=== PATIENT | male | born 1945 | race Caucasian/White ===

== ENCOUNTER 2020-08-30 13:07 | Emergency (ER) | payer MEDICARE, SELFPAY ==
--- NOTE | ~2020-08-30 | CT_ITS ---
EXAMINATION: CT abdomen pelvis wo con CLINICAL INFORMATION: Reason for Exam Right-sided groin pain, history of kidney stones COMPARISON: Prior CT 2013 TECHNIQUE: Multidetector volumetric imaging was performed from the superior aspect of the liver through the pubic symphysis noncontrasted study Sagittal and coronal reformatted images were obtained on the technologist's workstation. This CT examination was performed using dose optimization techniques as appropriate, variously including the following: *Automated exposure control *Adjustment of mA and/or kV according to patient size (this includes techniques or standardized protocols for targeted exams where dose is matched to indication/reason for exam; i.e. extremities or head) *Use of iterative reconstruction technique DLP: 1186 mGy-cm FINDINGS: LOWER THORAX: There is a solid noncalcified nodule left lower lobe 6 mm in diameter. Refer image 9 series of 3. This has not changed since 2013 and presumably benign. HEPATOBILIARY: No focal hepatic lesions. No biliary ductal dilatation. GALLBLADDER: There are small layering gallstones. SPLEEN: Spleen is normal in size. PANCREAS: No focal mass or ductal dilatation. STOMACH AND GASTROINTESTINAL TRACT: Stomach is grossly unremarkable. There is a loop of colon C-shaped mildly dilated at mid abdomen raising concern for possible internal volvulus. Versus colonic ileus. Refer image [address] evidence of appendicitis. ADRENALS: No adrenal nodules. KIDNEYS/URETERS: Cyst lower pole right kidney measures 3 cm in diameter. Cyst lower pole left kidney measures 6.7 x 5.2 cm. Cyst middle pole right kidney 1.4 cm. There are tiny nonobstructing bilateral kidney stones on the right side measures 4 mm. On the left side measure 2 mm 3 mm and 2 mm. Cyst upper pole left kidney measures 2.6 cm. URINARY BLADDER: Partially decompressed. PELVIC VISCERA: Unremarkable PERITONEUM: No free air or fluid. LYMPH NODES: No lymphadenopathy. VASCULAR:There are heavy vascular calcifications. No aneurysm. BONES, ABDOMINAL WALL AND SOFT TISSUES: Small periumbilical hernia containing fat only measure about 1.9 cm. Right inguinal hernia containing fat only. The larger on the left measures 8.[address]/CT abdomen pelvis wo con IMPRESSION: 1. There is mildly dilated air-filled C-shaped loop of colon raising concern for possible internal volvulus versus colonic ileus. [place] image. No evidence of obstruction however. Pericholecystic remain clear. Clinical correlation recommended. If patient remain symptomatic consider correlation with follow-up CT scan with oral and IV contrast. 2. Cholelithiasis. 3. Bilateral renal cysts. A nonobstructing stones, No CT evidence of hydronephrosis.. 4. Heavy vascular calcification. 5. Subcentimeter Lung nodule left lower lobe 6 mm unchanged since 2013 presumably benign. 6. Bilateral inguinal hernias and a small periumbilical hernia containing fat.
[2020-08-30 14:38] VITALS: BP 110/52; BP 142/86; PULSE 65; PULSE 69; RESP 16; TEMP 36.4; O2SAT 94; O2SAT 95; BMI 39.1
[2020-08-30 15:15] LABS: MANUAL DIFF FLAG NO
[2020-08-30 15:17] LABS: Basophils Percent Auto 0.3 % (0-2); Eosinophils Absolute Auto 0.2 X10*3/uL (0.0-0.4); Eosinophils Percent Auto 1.7 % (0-4); Hematocrit 43.9 % (42-52); Hemoglobin 13.9 g/dl (14.0-18.0); Imm Gran Abs Auto 0.06 X10*3/uL (0.00-0.03); Imm Gran Pct Auto 0.7 % (0.0-0.4); Lymphocytes Absolute Auto 0.8 X10*3/uL (1.2-4.9); Lymphocytes Percent Auto 8.4 % (20-40); Mean Corpuscular HGB Conc 31.7 g/dl (31.0-36.0); Mean Corpuscular Hemoglobin 28.4 pg (27.0-33.0); Mean Corpuscular Volume 89.8 fL (80-98); Monocytes Absolute Auto 0.8 X10*3/uL (0.1-1.2); Monocytes Percent Auto 8.7 % (2-11); Neutrophils Absolute Auto 7.3 X10*3/uL (2.0-8.3); Neutrophils Percent Auto 80.2 % (45-73); Platelet Count 185 X10*3/uL (160-400); Red Blood Count 4.89 X10*6/uL (4.60-5.80); Red Cell Distribution Width 14.5 % (11.0-16.0); White Blood Count 9.2 X10*3/uL (4.8-10.8)
[2020-08-30 15:21] LABS: Glucose Urine UA NEG (NEG); Leukocyte Esterase Urine NEG (NEG); Nitrite Urine NEG (NEG); Specific Gravity - Urine 1.015 (1.005-1.025); Urine Blood NEG (NEG); Urine Ketones NEG (NEG); Urine Protein TRACE MG/DL (NEG-TRACE)
[2020-08-30 15:24] LABS: Appearance Urine CLEAR; Color Urine YELLOW
[2020-08-30 15:48] LABS: Anion Gap 15 (12-20); Blood Urea Nitrogen 52 mg/dL (9-16); Calcium 9.1 mg/dL (8.4-10.2); Carbon Dioxide 27 mmol/L (22-29); Chloride 99 mmol/L (96-108); Creatinine Clr Calc Pharmacy 50.5; Estimated Glomerular Filt Rate 35; Glucose Random 107 mg/dL (60-115); Potassium 4.9 mmol/L (3.3-5.1); Sodium 136 mmol/L (135-145)
--- NOTE | 2020-08-30 17:53 | ED.MALEGU ---
HPI - Male Genitourinary General Chief complaint: Urogenital-Male <ALY Barros - Last Filed: 08/31/20 01:51> Stated complaint: kidney stones <ALY Barros - Last Filed: 08/31/20 01:51> Time Seen by Provider: 08/30/20 17:44 <ALY Barros - Last Filed: 08/31/20 01:51> Source: patient, EMS and RN notes reviewed <ALY Barros - Last Filed: 08/31/20 01:51> Mode of arrival: ambulatory <AYL Barros - Last Filed: 08/31/20 01:51> Limitations: no limitations <ALY Barros - Last Filed: 08/31/20 01:51> History of Present Illness HPI Narrative: 75-year-old male here today for complaining of right-sided groin pain for 2 days. Patient reports to have urinary frequency as well as incontinence. Denies any fever, abdominal discomfort, blood in his urine. Patient reports that he has a history of kidney stones in the past. Patient has a history of diabetes and kidney disease. BUN 52, creatinine 1.87. Patient denies any fever or chills. <ALY Barros - Last Filed: 08/31/20 01:51> Related Data Home medications: Previous Rx's Medication Instructions Recorded polyethylene glycol 3350 [Miralax] 17 g PO DAILY #238 g 08/30/20 tamsulosin [Flomax] 0.4 mg PO BEDTIME #5 cap 08/30/20 <ALY Barros - Last Filed: 08/31/20 01:51> Allergies/Adverse reactions: Allergies Allergy/AdvReac Type Severity Reaction Status Date / Time No Known Allergies Allergy Verified 08/30/20 14:42 <ALY Barros - Last Filed: 08/31/20 01:51> Review of Systems Review of Systems: Constitutional : No Weight loss, No Fever, No Chills, No Night Sweats, No Fatigue, No Malaise ENT/Mouth : No Hearing loss, No Ear Pain, No Nasal Congestion, No Sinus Pain, No Hoarseness, No sore throat, No Rhinorrhea, No Swallowing Difficulty Eyes: No Eye Pain, No Swelling, No Redness, No Foreign Body, No Discharge, No Vision Changes Cardiovascular : No Chest Pain, No SOB, No Dyspnea on Exertion, No Orthopnea, No Edema, No Palpitations Respiratory : No Cough, No Sputum, No Wheezing, No Smoke Exposure, No Dyspnea Gastrointestinal : No Nausea, No Vomiting, No Diarrhea, No Constipation, No abdominal Pain, No Hematochezia, No Melena Genitourinary : no irregular bleeding, No Dysuria, Urinary Frequency, No Hematuria, Urinary Incontinence, Urgency, No Flank Pain, Urinary Flow Changes, No Hesitancy Musculoskeletal : No joint pain, No Myalgias, No Joint Swelling Skin : No Skin Lesions, No rash Neuro : No Weakness, No Numbness, No Paresthesias, No Loss of Consciousness, No Dizziness, No Headache Psych : No Anxiety/Panic, No Depression, No SI/HI/AH/VH, No Social Issues, Heme/Lymph: No Bruising, No Bleeding,No Lymphadenopathy Endocrine : No Polyuria, No Polydipsia, No Temperature Intolerance <ALY Barros - Last Filed: 08/31/20 01:51> Yes all other systems are reviewed and are negative <ALY Barros - Last Filed: 08/31/20 01:51> [facility] Past Medical History Medical History: Medical History (Updated 08/31/20 @ 00:01 by Melvina Walsh) Afib Diabetes H/O renal calculi Lymphoma <ALY Barros - Last Filed: 08/31/20 01:51> Social History Social History: Social History Alcohol intake: never Patient Tobacco Use Status: Former Tobacco user Smoked in Last 30 Days: No Use of substances other than those prescribed or required for medical reasons: No Any prior treatment program specific to substance use: No Advance Directives: No Advance Directives Information Provided: Yes <ALY Barros - Last Filed: 08/31/20 01:51> Physical Exam Vital Signs: Vital Signs: Last Vital Signs Temp 97.5 F 08/30/20 14:38 Pulse 87 08/30/20 20:00 Resp 18 08/30/20 20:00 BP 114/64 08/30/20 20:00 Pulse Ox 94 08/30/20 20:00 Body Mass Index 39.1 <Traci Burgercindy [employer] - Last Filed: 08/31/20 01:51> Vital Signs: Last Vital Signs Temp 97.5 F 08/30/20 14:38 Pulse 87 08/30/20 20:00 Resp 18 08/30/20 20:00 BP 114/64 08/30/20 20:00 Pulse Ox 94 08/30/20 20:00 Body Mass Index 39.1 <Meche Wu MD - Last Filed: 08/31/20 07:48> Const: General: healthy appearing, no acute distress and well developed <Tracienmanuel Ko [employer] - Last Filed: 08/31/20 01:51> Nutritional Appearance: well nourished <Traci Padma Ko [employer] - Last Filed: 08/31/20 01:51> Orientation/consciousness: patient oriented x3 <Traci Padma Stefani, [employer] - Last Filed: 08/31/20 01:51> Neck: Neck: Yes normal visual inspection, Yes full ROM and Yes trachea midline <Traci Burgercindy [employer] - Last Filed: 08/31/20 01:51> Thyroid: Thyroid normal <Traci Padma Ko [employer] - Last Filed: 08/31/20 01:51> Resp: Auscultation: clear to auscultation bilaterally <Traci Padma Ko [employer] - Last Filed: 08/31/20 01:51> Cardio: Rate: regular rate <Traci Padma Stefani, [employer] - Last Filed: 08/31/20 01:51> Rhythm: regular rhythm <Traci Padma Ko [employer] - Last Filed: 08/31/20 01:51> GI: Inspection: Yes normal to inspection and No distended <Traci Padma Ko [employer] - Last Filed: 08/31/20 01:51> Palpation (GI): No hepatosplenomegaly present <Tracienmanuel Ko [employer] - Last Filed: 08/31/20 01:51> Auscultation: normal bowel sounds <ALY Barros - Last Filed: 08/31/20 01:51> : General: Yes no CVA tenderness <ALY Barros - Last Filed: 08/31/20 01:51> Penis: normal penis <ALY Barros - Last Filed: 08/31/20 01:51> Back/Spine/Pelvis: Back: no CVA tenderness <ALY Barros - Last Filed: 08/31/20 01:51> Skin: General skin exam: elasticity normal, turgor normal and dry skin <ALY Barros - Last Filed: 08/31/20 01:51> Neuro: General: patient oriented x3 <ALY Barros - Last Filed: 08/31/20 01:51> Course Course Course Narrative: 74 y.o with complaints of right lower quadrant inguinal pain. Reports that he had history of kidney stones in the past. No known history of inguinal hernias. Moving his bowels normally. Denies any melena, blood in his stools or ribbon like stools. Denies any weight loss. Denies any nausea, vomiting or diarrhea. Will do CT scan check for kidney stones or any other abnormalities. Patient's kidney function is elevated will do dry CT scan. <ALY Barros - Last Filed: 08/31/20 01:51> Reevaluation(s) Reevaluation #1: CT scan shows mildly dilated air-filled C shaped loop of colon raising concern for possible internal above is versus colonic ileus. Spoke to Dr. Bermeo who reviewed the CT scan and. Patient has no nausea, vomiting, diarrhea, melena, blood in his stools. I will send patient home to follow up with surgery for inguinal hernias and urology for kidneys stones. I will send him home with Flomax he can take that in the evening for the next 5 days. Patient reports that he gets constipated from times to times I will send him home with MiraLax. <ALY Barros - Last Filed: 08/31/20 01:51> MDM - Male Genitourinary Lab Data Result diagrams: : 08/30/20 15:09 08/30/20 15:09 <Traci Padma Stefani [facility]- - Last Filed: 08/31/20 01:51> Labs: Lab Results 08/30/20 08/30/20 08/30/20 Range/Units 15:09 15:09 15:09 WBC 9.2 (4.8-10.8) X10*3/uL RBC 4.89 (4.60-5.80) X10*6/uL Hgb 13.9 L (14.0-18.0) g/dl Hct 43.9 (42-52) % MCV 89.8 (80-98) fL MCH 28.4 (27.0-33.0) pg MCHC 31.7 (31.0-36.0) g/dl RDW 14.5 (11.0-16.0) % Plt Count 185 (160-400) X10*3/uL MPV 12.0 (9.4-12.4) fL Immature Gran % (Auto) 0.7 H (0.0-0.4) % Neut % (Auto) 80.2 H (45-73) % Lymph % (Auto) 8.4 L (20-40) % [place] % (Auto) 8.7 (2-11) % Eos % (Auto) 1.7 (0-4) % Baso % (Auto) 0.3 (0-2) % Lymph # (Auto) 0.8 L (1.2-4.9) X10*3/uL [place] # (Auto) 0.8 (0.1-1.2) X10*3/uL Eos # (Auto) 0.2 (0.0-0.4) X10*3/uL Baso # (Auto) 0.0 (0.0-0.2) X10*3/uL Abs Immat Gran (auto) 0.06 H (0.00-0.03) X10*3/uL Absolute Neuts (auto) 7.3 (2.0-8.3) X10*3/uL Absolute Nucleated RBC 0.000 (0.0-0.012) X10*3/uL Nucleated RBC % (auto) 0.0 (0.0-0.2) /100WBC Sodium 136 (135-145) mmol/L Potassium 4.9 (3.3-5.1) mmol/L Chloride 99 (96-108) mmol/L Carbon Dioxide 27 (22-29) mmol/L Anion Gap 15 (12-20) BUN 52 H (9-16) mg/dL Creatinine 1.87 H (0.5-1.4) mg/dL Estim Creat Clear Calc 50.5 Estimated GFR 35 Random Glucose 107 (60-115) mg/dL Calcium 9.1 (8.4-10.2) mg/dL Urine Color YELLOW Urine Appearance CLEAR Urine pH 6.0 (5.0-8.0) Ur Specific [place] 1.015 (1.005-1.025) Urine Protein TRACE (NEG-TRACE) MG/DL Urine Glucose (UA) NEG (NEG) MG/DL Urine Ketones NEG (NEG) MG/DL Urine Blood NEG (NEG) Urine Nitrite NEG (NEG) Ur Leukocyte Esterase NEG (NEG) <Traci Ko, [facility]- - Last Filed: 08/31/20 01:51> Lab Results 08/30/20 08/30/20 08/30/20 Range/Units 15:09 15:09 15:09 WBC 9.2 (4.8-10.8) X10*3/uL RBC 4.89 (4.60-5.80) X10*6/uL Hgb 13.9 L (14.0-18.0) g/dl Hct 43.9 (42-52) % MCV 89.8 (80-98) fL MCH 28.4 (27.0-33.0) pg MCHC 31.7 (31.0-36.0) g/dl RDW 14.5 (11.0-16.0) % Plt Count 185 (160-400) X10*3/uL MPV 12.0 (9.4-12.4) fL Immature Gran % (Auto) 0.7 H (0.0-0.4) % Neut % (Auto) 80.2 H (45-73) % Lymph % (Auto) 8.4 L (20-40) % [place] % (Auto) 8.7 (2-11) % Eos % (Auto) 1.7 (0-4) % Baso % (Auto) 0.3 (0-2) % Lymph # (Auto) 0.8 L (1.2-4.9) X10*3/uL [place] # (Auto) 0.8 (0.1-1.2) X10*3/uL Eos # (Auto) 0.2 (0.0-0.4) X10*3/uL Baso # (Auto) 0.0 (0.0-0.2) X10*3/uL Abs Immat Gran (auto) 0.06 H (0.00-0.03) X10*3/uL Absolute Neuts (auto) 7.3 (2.0-8.3) X10*3/uL Absolute Nucleated RBC 0.000 (0.0-0.012) X10*3/uL Nucleated RBC % (auto) 0.0 (0.0-0.2) /100WBC Sodium 136 (135-145) mmol/L Potassium 4.9 (3.3-5.1) mmol/L Chloride 99 (96-108) mmol/L Carbon Dioxide 27 (22-29) mmol/L Anion Gap 15 (12-20) BUN 52 H (9-16) mg/dL Creatinine 1.87 H (0.5-1.4) mg/dL Estim Creat Clear Calc 50.5 Estimated GFR 35 Random Glucose 107 (60-115) mg/dL Calcium 9.1 (8.4-10.2) mg/dL Urine Color YELLOW Urine Appearance CLEAR Urine pH 6.0 (5.0-8.0) Ur Specific [place] 1.015 (1.005-1.025) Urine Protein TRACE (NEG-TRACE) MG/DL Urine Glucose (UA) NEG (NEG) MG/DL Urine Ketones NEG (NEG) MG/DL Urine Blood NEG (NEG) Urine Nitrite NEG (NEG) Ur Leukocyte Esterase NEG (NEG) <Meche Wu MD - Last Filed: 08/31/20 07:48> Imaging Data CT scan - abdomen: Radiologist's impression: FINDINGS: LOWER THORAX: There is a solid noncalcified nodule left lower lobe 6 mm in diameter. Refer image 9 series of 3. This has not changed since 2013 and presumably benign. HEPATOBILIARY: No focal hepatic lesions. No biliary ductal dilatation. GALLBLADDER: There are small layering gallstones. SPLEEN: Spleen is normal in size. PANCREAS: No focal mass or ductal dilatation. STOMACH AND GASTROINTESTINAL TRACT: Stomach is grossly unremarkable. There is a loop of colon C-shaped mildly dilated at mid abdomen raising concern for possible internal volvulus. Versus colonic ileus. Refer image [address] evidence of appendicitis. ADRENALS: No adrenal nodules. KIDNEYS/URETERS: Cyst lower pole right kidney measures 3 cm in diameter. Cyst lower pole left kidney measures 6.7 x 5.2 cm. Cyst middle pole right kidney 1.4 cm. There are tiny nonobstructing bilateral kidney stones on the right side measures 4 mm. On the left side measure 2 mm 3 mm and 2 mm. Cyst upper pole left kidney measures 2.6 cm. URINARY BLADDER: Partially decompressed. PELVIC VISCERA: Unremarkable PERITONEUM: No free air or fluid. LYMPH NODES: No lymphadenopathy. VASCULAR:There are heavy vascular calcifications. No aneurysm. BONES, ABDOMINAL WALL AND SOFT TISSUES: Small periumbilical hernia containing fat only measure about 1.9 cm. Right inguinal hernia containing fat only. The larger on the left measures 8.[address]/CT abdomen pelvis wo con IMPRESSION: 1. There is mildly dilated air-filled C-shaped loop of colon raising concern for possible internal volvulus versus colonic ileus. [place] image. No evidence of obstruction however. Pericholecystic remain clear. Clinical correlation recommended. If patient remain symptomatic consider correlation with follow-up CT scan with oral and IV contrast. 2. Cholelithiasis. 3. Bilateral renal cysts. A nonobstructing stones, No CT evidence of hydronephrosis.. 4. Heavy vascular calcification. 5. Subcentimeter Lung nodule left lower lobe 6 mm unchanged since 2012 presumably benign. 6. Bilateral inguinal hernias and a small periumbilical hernia containing fat. <ALY Barros - Last Filed: 08/31/20 01:51> Discharge Plan Discharge Clinical Impression: Inguinal hernia, Bilateral kidney stones <ALY Barros - Last Filed: 08/31/20 01:51> Patient Disposition: Home, Self-Care <ALY Barros - Last Filed: 08/31/20 01:51> Instructions: Kidney Stones (ED), Inguinal Hernia (ED) <ALY Barros - Last Filed: 08/31/20 01:51> Additional Instructions: You were seen here today for right groin pain. Your lab work was negative for any infection or anemia. Your CT scan shows that you do have bilateral inguinal hernia and kidney stones. Please follow-up with your primary care doctor in 2-3 days. Please follow-up with your urologist about the kidney stones. I am putting you on Flomax for the next 5 days you can take it at bedtime. Please follow-up with surgery about your inguinal hernias if the pain will continue to get worse. If your symptoms will get worse or if you will develop any other concerning symptoms please return to emergency department. You reported that you also constipated I am sending script for MiraLax, you can take that every morning with glass of water. <ALY Barros - Last Filed: 08/31/20 01:51> Prescriptions: New tamsulosin [Flomax] 0.4 mg capsule 0.4 mg PO BEDTIME Qty: 5 RF: 0 polyethylene glycol 3350 [Miralax] 17 gram/dose powder 17 g PO DAILY Qty: 238 RF: 0 <ALY Barros - Last Filed: 08/31/20 01:51> Interventions: ED Discharge Assessment Last Done: 08/30/20 23:23 <ALY Barros - Last Filed: 08/31/20 01:51> Discharge Date/Time: 08/30/20 23:25 <ALY Barros - Last Filed: 08/31/20 01:51>
[2020-08-30 18:00] VITALS: BP 135/62; PULSE 63; RESP 18; O2SAT 94
--- NOTE | 2020-08-30 18:46 | PC.NURSE ---
two rns attempted x 2 to obtain iv access. unable to advance catheter. MLP aware.
[2020-08-30] MEDS: 0.9 % Sodium Chloride 500 ML IV (18:59)
[2020-08-30 20:00] VITALS: BP 114/64; PULSE 87; RESP 18; O2SAT 94
== END 2020-08-30 23:25 | disposition home or self-care (01) ==
PROVIDERS: Emergency Provider Student in an Organized Health Care Education/Training Program
DX: K40.20 Bilateral inguinal hernia, without obstruction or gangrene, not specified as recurrent (principal); N20.0 Calculus of kidney; R35.0 Frequency of micturition; R10.9 Unspecified abdominal pain; Z79.899 Other long term (current) drug therapy
CPT/HCPCS: 36415; 74176; 80048; 81003; 85025; 99284

== ENCOUNTER → 2020-09-10 10:32 | Outpatient (BNVA) | payer MEDICARE, SELFPAY | PROVIDERS: PCP Internal Medicine; Referring Provider Internal Medicine; Visit Provider Surgery | DX: K40.20 Bilateral inguinal hernia, without obstruction or gangrene, not specified as recurrent (principal) | CPT/HCPCS: 99202 ==

== ENCOUNTER 2020-11-22 11:10 | Inpatient (IN) | payer MEDICARE, OTHER, SELFPAY ==
--- NOTE | ~2020-11-22 | XR_ITS ---
EXAMINATION: XR CHEST CLINICAL INFORMATION: Weakness COMPARISON: CT of September 07, 2019 TECHNIQUE: 2 views of the chest were obtained. FINDINGS: There is no evidence of pneumothorax or pleural effusion. Heart normal size. No evidence of pulmonary edema. There is some bibasilar minor disease likely related to atelectasis. Retrocardiac density also noted and may be superimposition of rib and vascular structure however nodule cannot be excluded.. Status post previous right neck surgery. XR/XR chest 2V IMPRESSION: Probable bibasilar atelectasis. Retrocardiac density which may be superimposition of vascular structure and rib versus possible nodule.
--- NOTE | ~2020-11-22 | US_ITS ---
EXAMINATION: BILATERAL LOWER EXTREMITY DEEP VENOUS ULTRASOUND CLINICAL INFORMATION: Lateral lower extremity swelling and edema. COMPARISON: No similar prior examinations are available for comparison. TECHNIQUE: Duplex Doppler imaging with compression maneuvers were performed of the bilateral lower extremity deep venous systems. FINDINGS: The bilateral visualized common femoral, femoral and popliteal veins demonstrate normal compressibility and color flow without evidence of venous thrombosis. Visualized portions of the bilateral calf veins demonstrate normal color fill-in suggesting patency. There is no evidence of a Khan's cyst. US/US venous duplex LE BI IMPRESSION: No evidence of deep venous thrombosis involving the bilateral lower extremities.
--- NOTE | ~2020-11-22 | CT_ITS ---
EXAMINATION: CT CHEST WITHOUT CONTRAST CLINICAL INFORMATION: Abnormal chest x-ray. Evaluate for pneumonia. COMPARISON: Chest x-ray of same day and chest CT of September 07, 2019 TECHNIQUE: Multidetector volumetric CT imaging of the chest was done. Axial MIP volume rendering provided. Sagittal and coronal reformatted images were obtained. This CT examination was performed using dose optimization techniques as appropriate, variously including the following: *Automated exposure control *Adjustment of mA and/or kV according to patient size (this includes techniques or standardized protocols for targeted exams where dose is matched to indication/reason for exam; i.e. extremities or head) *Use of iterative reconstruction technique DLP: 536 mGy-cm FINDINGS: LUNGS: There are mild changes of centrilobular emphysema seen bilaterally. Central airways are patent. There is some bronchial wall thickening seen in the lower lobes bilaterally without bronchiectasis. There is some bibasilar dependent atelectasis seen. There are some sub-4 mm densities present. A few intrafissural lymph nodes are seen. There is a 1 cm nodule within the left lower lobe medially on image #353 of 601 in series #5. Which is seen to have been present on previous study of September 07, 2019. MEDIASTINUM: Heart normal size. Coronary artery calcification present. Mitral valve annulus and aortic valve calcifications present. No pericardial effusion. Ascending Thoracic aorta is prominent measuring 4.1 cm in diameter. There is nonocclusive thrombus at the origin of the arch vessels. 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 No mediastinal or hilar lymphadenopathy. PLEURA: There is no pleural effusion. No pleural mass or thickening. AXILLA: No lymphadenopathy. UPPER ABDOMEN: There is cholelithiasis without evidence of acute cholecystitis. Left renal cyst present. OSSEOUS STRUCTURES: No suspicious destructive bony lesion identified. CT/CT chest wo con IMPRESSION: Stable 1 cm right lower lobe nodule compared to study of September 07, 2019 and abdominal CTA of October 05, 2012. Enlarged ascending thoracic aorta at 4.1 cm in diameter. Deep tendon bibasilar atelectatic change.
[2020-11-22 11:14] VITALS: BP 128/62; PULSE 84; RESP 15; TEMP 37.1; O2SAT 98; BMI 39.5
--- NOTE | 2020-11-22 12:07 | ECG_ITS ---
Test Reason : SWOLLEN LEGS Blood Pressure : / mmHG Vent. Rate : 071 BPM Atrial Rate : 071 BPM P-R Int : 400 ms QRS Dur : 152 ms QT Int : 444 ms P-R-T Axes : 000 078 -10 degrees QTc Int : 482 ms Sinus rhythm with 1st degree A-V block Right bundle branch block Abnormal ECG When compared with ECG of 07-SEP-2019 00:55, No significant change was found Referred By: Clarissa Sterling Electronically Signed By:RANGEL TRUJILLO
--- NOTE | 2020-11-22 12:09 | ED_ITS ---
HPI - General Adult General Chief complaint: General Medical Stated complaint: swollen legs Time Seen by Provider: 11/22/20 11:56 Source: patient Mode of arrival: ambulatory Limitations: no limitations History of Present Illness HPI narrative: 75 year old male with a past medical history of AFib on Eliquis, high blood pressure, hypothyroidism, high cholesterol, non insulin dependent diabetes, chronic kidney disease here with complaints of generalized weakness for the last several days. Patient reports it has been difficult to ambulate at home. Does report cough with productive sputum but denies any shortness of breath or chest pain. No fevers or chills. He does have lower extremity swelling which he tells me is chronic for him. No pain in the legs. Patient lives home alone. He is currently changing his primary care doctor and ran out of his metformin, levothyroxine and furosemide 5 days ago. Adequate refills on his other medications. Related Data Home Medications Medication Instructions Recorded Confirmed apixaban 5 mg tablet (Eliquis) 1 tab PO BID 11/22/20 11/22/20 furosemide 20 mg tablet 1 tab PO DAILY 11/22/20 11/22/20 levothyroxine 75 mcg tablet 1 tab PO DAILY 11/22/20 11/22/20 metformin 500 mg tablet,extended 1 tab PO QAM 11/22/20 11/22/20 release 24 hr metoprolol tartrate 100 mg tablet 1 tab PO TID 11/22/20 11/22/20 Allergies Allergy/AdvReac Type Severity Reaction Status Date / Time No Known Allergies Allergy Verified 08/30/20 14:42 Review of Systems Review of Systems: Yes all other systems are reviewed and are negative Constitutional: Constitutional: Reports no additional constitutional complaints, Denies body ache(s), Denies chills, Denies fever(s), Denies headache(s) and Reports weakness Eyes: Eyes: Reports no additional eye complaints and Denies change in vision ENT: Reports system reviewed and no additional complaints, except as documen nikole, Denies dizziness, Denies headache(s), Denies nasal congestion, Denies nasal discharge and Denies neck pain Cardiovascular: Cardiovascular: Reports no additional cardiovascular complaints, Denies chest pain, Reports leg edema and Denies dyspnea Respiratory: Respiratory: Reports no additional respiratory complaints, Denies cough and Denies dyspnea Gastrointestinal: Gastrointestinal: Reports no additional gastrointestinal complaints, Denies abdominal pain, Reports diarrhea (one episode this am ), Denies nausea and Denies vomiting Genitourinary: Genitourinary: Denies urinary incontinence Musculoskeletal: Musculoskeletal: Reports no additional musculoskeletal complaints, Denies back pain, Denies arthralgias, Denies joint swelling, Denies neck pain, Denies numbness and Denies tingling Integumentary/Breasts: Skin/Breast: Reports system reviewed and no additional complaints, except as docu and Denies rash Neurologic: Reports system reviewed and no additional complaints, except as documented, Denies Abnormal speech present, Denies dizziness, Denies headache(s), Denies numbness, Denies tingling and Reports weakness PMFSH Past Medical History Attestation statement: The following information was validated with the patient. Source: old records reviewed and nursing notes reviewed Medical History Afib Bilateral inguinal hernia Diabetes H/O renal calculi Inguinal hernia Lymphoma Surgical History History of ear surgery History of excision of mass History of excision of pilonidal cyst History of throat surgery Family History Family History Mother Breast cancer Social History Social History Alcohol intake: never Patient Tobacco Use Status: Former Tobacco user Use of substances other than those prescribed or required for medical reasons: No Advance Directives: Yes Advance Directives Information Provided: Yes Advance Directives on File: No Physical Exam Vital Signs: Vital Signs: Last Vital Signs Temp 98.1 F 11/22/20 12:27 Pulse 89 11/22/20 15:34 Resp 18 11/22/20 15:34 BP 127/72 11/22/20 15:34 Pulse Ox 96 11/22/20 15:34 Body Mass Index 39.5 Const: General: cooperative, healthy appearing, comfortable and no acute distress Orientation/consciousness: patient oriented x3 Limitations: no limitations HENMT: Head: Yes normal to inspection Ears: hearing grossly normal bilaterally General nose exam: Normal external nose present Face and sinus: Yes normal facial exam Mouth: Normal oral and palatal mucosa present Throat: Yes posterior oropharynx normal Eyes: General: appearance normal, both eyes and all related structures Pupils: Equal, round and reactive pupils present Neck: Neck: Yes normal visual inspection Chest: Chest palpation & inspection: normal inspection of the chest Resp: Effort & Inspection: normal respiratory effort Auscultation: clear to auscultation bilaterally Cardio: Rate: regular rate Rhythm: regular rhythm Peripheral pulses: Peripheral pulses 2+ throughout GI: Inspection: Yes normal to inspection Palpation (GI): Soft to palpation and nontender Auscultation: normal bowel sounds Back/Spine/Pelvis: Thoracic/Lumbar Spine: thoracic and lumbar spine normal to inspection Skin: General skin exam: no rashes or lesions noted Neuro: General: patient oriented x3, no focal motor deficits and normal sensation to monofilament Cranial nerves: Yes Equal, round and reactive pupils present Cognition (Neuro): normal cognition Speech: No Abnormal speech present Gait exam (Neuro): Normal gait present Motor exam (neuro): 5/5 motor strength present throughout Extrem: Other: Palpable distal pulses bilaterally noted No tenderness, no warmth. General: Yes normal to inspection Course Course Course Narrative: 75-year-old male here with complaints of generalized weakness, cough with productive sputum, difficulty ambulating for several days. Patient of no also ran out of some of his medications and is working on getting a new primary care doctor. On arrival the patient is ill kept. He has bilateral lower extremity edema which is nonpainful with distal palpable pulses. He has chronic leg wounds noted on both lower legs. Left leg > right with warmth and redness. He is afebrile. HD stable. Will check labs, EKG, chest x-ray, venous ultrasound, Covid screen 1445-x-ray concerning for possible opacity. Reviewed labs which show mild leukocytosis, kidney function at baseline. Elevated troponin with no reports of chest pain. Plan for repeat 3 hour troponin. Elevated BNP with no previous to compare to. Patient had been taking Lasix 20 mg daily however ran out of his medication 5 days ago. Will check [address] chest. Give 40 mg IV Lasix. Ambulated with pulse ox and reassess. 1540-Patient desated to 84% RA while ambulating. Will require admit. 1650-patient was initially hesitant to agree to who be admitted. I did speak to his son and the patient is now agreeable. When I went in to re-evaluate the patient and noted that his left lower extremity is now warm and red with what appears to be cellulitis. At this time infection is suspected. Antibiotics ordered. Per son the patient does have history of chronic wounds to his lower extremities, groin area and neck area. He has been seen by thermite welder at [facility] for both aortic and mitral valve ?replacements but has been denied procedure d/t chronic groin rashes. CT chest negative. -spoke to Dr Munguia who accepted admission. Medical Decision Making Medical Records Medical records reviewed: Yes I reviewed the patient's medical records. Lab Data Lab results reviewed: Yes I reviewed the patient's lab results. Result diagrams: 11/22/20 13:50 11/22/20 12:07 Labs: Lab Results 11/22/20 11/22/20 11/22/20 Range/Units 12:07 12:08 12:08 WBC (4.8-10.8) X10*3/uL RBC (4.60-5.80) X10*6/uL Hgb (14.0-18.0) g/dl Hct (42-52) % MCV (80-98) fL MCH (27.0-33.0) pg MCHC (31.0-36.0) g/dl RDW (11.0-16.0) % Plt Count (160-400) X10*3/uL MPV (9.4-12.4) fL Immature Gran % (Auto) (0.0-0.4) % Neut % (Auto) (45-73) % Lymph % (Auto) (20-40) % [place] % (Auto) (2-11) % Eos % (Auto) (0-4) % Baso % (Auto) (0-2) % Lymph # (Auto) (1.2-4.9) X10*3/uL [place] # (Auto) (0.1-1.2) X10*3/uL Eos # (Auto) (0.0-0.4) X10*3/uL Baso # (Auto) (0.0-0.2) X10*3/uL Abs Immat Gran (auto) (0.00-0.03) X10*3/uL Absolute Neuts (auto) (2.0-8.3) X10*3/uL Absolute Nucleated RBC (0.0-0.012) X10*3/uL Nucleated RBC % (auto) (0.0-0.2) /100WBC Smear Tech's Comments Sodium 139 (135-145) mmol/L Potassium 5.2 H (3.3-5.1) mmol/L Chloride 104 (96-108) mmol/L Carbon Dioxide 30 H (22-29) mmol/L Anion Gap 10 L (12-20) BUN 26 H (9-16) mg/dL Creatinine 1.42 H (0.5-1.4) mg/dL Estim Creat Clear Calc 65.0 Estimated GFR 49 Random Glucose 129 H (60-115) mg/dL Calcium 8.5 D (8.4-10.2) mg/dL Magnesium 1.8 (1.6-2.6) mg/dL Total Bilirubin 1.3 H (0.0-1.0) mg/dL Direct Bilirubin 0.5 (0.0-0.5) mg/dL AST 14 (5-37) U/L ALT 7 (0-40) U/L Alkaline Phosphatase 67 (39-117) U/L Troponin I High Sens 89.3 H* (<3.5-35.0) ng/L B-Natriuretic Peptide 1275 H (<100) pg/mL Total Protein 7.4 (6.5-8.0) g/dL Albumin 3.3 L (3.5-5.0) g/dL Urine Color Urine Appearance Urine pH (5.0-8.0) Ur Specific [place] (1.005-1.025) Urine Protein (NEG-TRACE) MG/DL Urine Glucose (UA) (NEG) MG/DL Urine Ketones (NEG) MG/DL Urine Blood (NEG) Urine Nitrite (NEG) Ur Leukocyte Esterase (NEG) Urine RBC (0) /HPF Urine WBC (0-4) /HPF Ur Squamous Epith Cells /LPF Amorphous Sediment /LPF Urine Bacteria /LPF COVID-19 ([facility]) (Negative) COVID-19 Clin Com 11/22/20 11/22/20 11/22/20 Range/Units 12:30 13:50 14:19 WBC 12.4 H (4.8-10.8) X10*3/uL RBC 4.29 L (4.60-5.80) X10*6/uL Hgb 12.4 L (14.0-18.0) g/dl Hct 39.5 L (42-52) % MCV 92.1 (80-98) fL MCH 28.9 (27.0-33.0) pg MCHC 31.4 (31.0-36.0) g/dl RDW 14.5 (11.0-16.0) % Plt Count 130 L D (160-400) X10*3/uL MPV 12.0 (9.4-12.4) fL Immature Gran % (Auto) 0.5 H (0.0-0.4) % Neut % (Auto) 83.5 H (45-73) % Lymph % (Auto) 5.7 L (20-40) % [place] % (Auto) 9.3 (2-11) % Eos % (Auto) 0.7 (0-4) % Baso % (Auto) 0.3 (0-2) % Lymph # (Auto) 0.7 L (1.2-4.9) X10*3/uL [place] # (Auto) 1.2 (0.1-1.2) X10*3/uL Eos # (Auto) 0.1 (0.0-0.4) X10*3/uL Baso # (Auto) 0.0 (0.0-0.2) X10*3/uL Abs Immat Gran (auto) 0.06 H (0.00-0.03) X10*3/uL Absolute Neuts (auto) 10.3 H (2.0-8.3) X10*3/uL Absolute Nucleated RBC 0.000 (0.0-0.012) X10*3/uL Nucleated RBC % (auto) 0.0 (0.0-0.2) /100WBC Smear Tech's Comments Not Reportable Sodium (135-145) mmol/L Potassium (3.3-5.1) mmol/L Chloride (96-108) mmol/L Carbon Dioxide (22-29) mmol/L Anion Gap (12-20) BUN (9-16) mg/dL Creatinine (0.5-1.4) mg/dL Estim Creat Clear Calc Estimated GFR Random Glucose (60-115) mg/dL Calcium (8.4-10.2) mg/dL Magnesium (1.6-2.6) mg/dL Total Bilirubin (0.0-1.0) mg/dL Direct Bilirubin (0.0-0.5) mg/dL AST (5-37) U/L ALT (0-40) U/L Alkaline Phosphatase (39-117) U/L Troponin I High Sens (<3.5-35.0) ng/L B-Natriuretic Peptide (<100) pg/mL Total Protein (6.5-8.0) g/dL Albumin (3.5-5.0) g/dL Urine Color YELLOW Urine Appearance CLEAR Urine pH 5.5 (5.0-8.0) Ur Specific [place] 1.025 (1.005-1.025) Urine Protein 2+ H (NEG-TRACE) MG/DL Urine Glucose (UA) NEG (NEG) MG/DL Urine Ketones NEG (NEG) MG/DL Urine Blood 1+ H (NEG) Urine Nitrite NEG (NEG) Ur Leukocyte Esterase NEG (NEG) Urine RBC 1-4 (0) /HPF Urine WBC 0-2 (0-4) /HPF Ur Squamous Epith Cells TRACE /LPF Amorphous Sediment 1+ /LPF Urine Bacteria NONE /LPF COVID-19 ([facility]) Negative (Negative) COVID-19 Clin Com See Note 11/22/20 Range/Units 16:15 WBC (4.8-10.8) X10*3/uL RBC (4.60-5.80) X10*6/uL Hgb (14.0-18.0) g/dl Hct (42-52) % MCV (80-98) fL MCH (27.0-33.0) pg MCHC (31.0-36.0) g/dl RDW (11.0-16.0) % Plt Count (160-400) X10*3/uL MPV (9.4-12.4) fL Immature Gran % (Auto) (0.0-0.4) % Neut % (Auto) (45-73) % Lymph % (Auto) (20-40) % [place] % (Auto) (2-11) % Eos % (Auto) (0-4) % Baso % (Auto) (0-2) % Lymph # (Auto) (1.2-4.9) X10*3/uL [place] # (Auto) (0.1-1.2) X10*3/uL Eos # (Auto) (0.0-0.4) X10*3/uL Baso # (Auto) (0.0-0.2) X10*3/uL Abs Immat Gran (auto) (0.00-0.03) X10*3/uL Absolute Neuts (auto) (2.0-8.3) X10*3/uL Absolute Nucleated RBC (0.0-0.012) X10*3/uL Nucleated RBC % (auto) (0.0-0.2) /100WBC Smear Tech's Comments Sodium (135-145) mmol/L Potassium (3.3-5.1) mmol/L Chloride (96-108) mmol/L Carbon Dioxide (22-29) mmol/L Anion Gap (12-20) BUN (9-16) mg/dL Creatinine (0.5-1.4) mg/dL Estim Creat Clear Calc Estimated GFR Random Glucose (60-115) mg/dL Calcium (8.4-10.2) mg/dL Magnesium (1.6-2.6) mg/dL Total Bilirubin (0.0-1.0) mg/dL Direct Bilirubin (0.0-0.5) mg/dL AST (5-37) U/L ALT (0-40) U/L Alkaline Phosphatase (39-117) U/L Troponin I High Sens 89.1 H* (<3.5-35.0) ng/L B-Natriuretic Peptide (<100) pg/mL Total Protein (6.5-8.0) g/dL Albumin (3.5-5.0) g/dL Urine Color Urine Appearance Urine pH (5.0-8.0) Ur Specific [place] (1.005-1.025) Urine Protein (NEG-TRACE) MG/DL Urine Glucose (UA) (NEG) MG/DL Urine Ketones (NEG) MG/DL Urine Blood (NEG) Urine Nitrite (NEG) Ur Leukocyte Esterase (NEG) Urine RBC (0) /HPF Urine WBC (0-4) /HPF Ur Squamous Epith Cells /LPF Amorphous Sediment /LPF Urine Bacteria /LPF COVID-19 ([facility]) (Negative) COVID-19 Clin Com Imaging Data Chest x-ray: Attestation: I personally reviewed and interpreted this imaging study as follows: Radiologist's impression: FINDINGS: There is no evidence of pneumothorax or pleural effusion. Heart normal size. No evidence of pulmonary edema. There is some bibasilar minor disease likely related to atelectasis. Retrocardiac density also noted and may be superimposition of rib and vascular structure however nodule cannot be excluded.. Status post previous right neck surgery. XR/XR chest 2V IMPRESSION: Probable bibasilar atelectasis. ? Retrocardiac density which may be superimposition of vascular structure and rib versus possible nodule. venous: Attestation: I personally reviewed and interpreted this imaging study as follows: Radiologist's impression: [place] [id number] Ultrasound Report Signed Patient: Adis Feliz MR#: [id number] : 1945 Acct:[id number] Age/Sex: 75 / M ADM Date: 11/22/20 Loc: .ED Attending Dr: Ordering Physician: Clarissa Sterling NP Date of Service: 11/22/20 Procedure(s): US venous duplex LE BI Accession Number(s): [id number] cc: Clarissa Sterling NP~ EXAMINATION: BILATERAL LOWER EXTREMITY DEEP VENOUS ULTRASOUND CLINICAL INFORMATION: Lateral lower extremity swelling and edema. COMPARISON: No similar prior examinations are available for comparison. TECHNIQUE: Duplex Doppler imaging with compression maneuvers were performed of the bilateral lower extremity deep venous systems. FINDINGS: The bilateral visualized common femoral, femoral and popliteal veins demonstrate normal compressibility and color flow without evidence of venous thrombosis. ? Visualized portions of the bilateral calf veins demonstrate normal color fill-in suggesting patency. There is no evidence of a Khan's cyst. US/US venous duplex LE BI IMPRESSION: No evidence of deep venous thrombosis involving the bilateral lower extremities. CT scan - chest: Attestation: I personally reviewed and interpreted this imaging study as follows: Radiologist's impression: Stable 1 cm right lower lobe nodule compared to study of September 07, 2019 and abdominal CTA of October 05, 2012. ? Enlarged ascending thoracic aorta at 4.1 cm in diameter.? ? Deep tendon bibasilar atelectatic change. ECG Data Attestation: I personally reviewed and interpreted this ECG as follows: Interpretation: Sinus rhythm with a first-degree AV block with a rate of 71, prolonged AK, QTC 482 Q-waves noted in leads 3 and AVF Discharge Plan Discharge Clinical Impression: Cellulitis, CHF (congestive heart failure), Hypoxia Patient Disposition: Admitted As Inpatient
[2020-11-22 12:27] VITALS: BP 116/55; PULSE 66; RESP 20; TEMP 36.7; O2SAT 96
[2020-11-22 12:58] LABS: COVID-19 Test Negative (Negative)
[2020-11-22 14:04] LABS: Eosinophils Percent Auto 0.7 % (0-4); MANUAL DIFF FLAG SCAN; Mean Corpuscular Volume 92.1 fL (80-98); Monocytes Percent Auto 9.3 % (2-11); PLT CLUMP 1; SCAN SMEAR FLAG 1
[2020-11-22 14:06] LABS: Basophils Percent Auto 0.3 % (0-2); Eosinophils Absolute Auto 0.1 X10*3/uL (0.0-0.4); Hematocrit 39.5 % (42-52); Hemoglobin 12.4 g/dl (14.0-18.0); Imm Gran Abs Auto 0.06 X10*3/uL (0.00-0.03); Imm Gran Pct Auto 0.5 % (0.0-0.4); Lymphocytes Absolute Auto 0.7 X10*3/uL (1.2-4.9); Lymphocytes Percent Auto 5.7 % (20-40); Mean Corpuscular HGB Conc 31.4 g/dl (31.0-36.0); Mean Corpuscular Hemoglobin 28.9 pg (27.0-33.0); Monocytes Absolute Auto 1.2 X10*3/uL (0.1-1.2); Neutrophils Absolute Auto 10.3 X10*3/uL (2.0-8.3); Neutrophils Percent Auto 83.5 % (45-73); Platelet Count 130 X10*3/uL (160-400); Red Blood Count 4.29 X10*6/uL (4.60-5.80); Red Cell Distribution Width 14.5 % (11.0-16.0); White Blood Count 12.4 X10*3/uL (4.8-10.8)
[2020-11-22 14:12] LABS: Magnesium 1.8 mg/dL (1.6-2.6)
[2020-11-22 14:13] LABS: Alanine Aminotransferase 7 U/L (0-40); Albumin Level 3.3 g/dL (3.5-5.0); Alkaline Phosphatase 67 U/L (39-117); Anion Gap 10 (12-20); Aspartate Amino Transferase 14 U/L (5-37); Bilirubin Direct 0.5 mg/dL (0.0-0.5); Bilirubin Total 1.3 mg/dL (0.0-1.0); Blood Urea Nitrogen 26 mg/dL (9-16); Calcium 8.5 mg/dL (8.4-10.2); Carbon Dioxide 30 mmol/L (22-29); Chloride 104 mmol/L (96-108); Estimated Glomerular Filt Rate 49; Glucose Random 129 mg/dL (60-115); Potassium 5.2 mmol/L (3.3-5.1); Sodium 139 mmol/L (135-145); Total Protein 7.4 g/dL (6.5-8.0)
[2020-11-22 14:28] LABS: Glucose Urine UA NEG (NEG); Leukocyte Esterase Urine NEG (NEG); Nitrite Urine NEG (NEG); PH 5.5 (5.0-8.0); Specific Gravity - Urine 1.025 (1.005-1.025); UACC Culture Trigger NO; Urine Blood 1+ (NEG); Urine Ketones NEG (NEG); Urine Protein 2+ MG/DL (NEG-TRACE)
[2020-11-22 14:29] LABS: Appearance Urine CLEAR; Color Urine YELLOW
[2020-11-22 14:31] LABS: B Type Natriuretic Peptide 1275 pg/mL (<100); Troponin-I High Sensitivity 89.3 ng/L (<3.5-35.0)
[2020-11-22 14:35] LABS: Amorphous Sediment Urine 1+ /LPF; Squamous Epithelial Cell Urine TRACE /LPF; WBC Urine 0-2 /HPF (0-4)
--- NOTE | 2020-11-22 14:39 | PC.NURSE ---
Critical Troponin (89.3) reported to Shakila, MATHEMATICS ACADEMIC CHAIR. and primary nurse caring for pt.
[2020-11-22 15:30] VITALS: O2SAT 84
[2020-11-22 15:34] VITALS: BP 127/72; PULSE 89; RESP 18; O2SAT 96
[2020-11-22] MEDS: Furosemide 40 MG/4 ML VIAL IVPUSH ×2 (15:37→19:44)
[2020-11-22 16:57] LABS: Troponin-I High Sensitivity 89.1 ng/L (<3.5-35.0)
[2020-11-22] MEDS: Piperacillin Sodium/Tazobactam 3.375 GM in 0.9 % Sodium Chloride 50 ML IV (17:02)
[2020-11-22 19:12] VITALS: BP 114/66; PULSE 94; RESP 18; TEMP 36.6; O2SAT 96
[2020-11-22 19:21] VITALS: BMI 41.1
[2020-11-22 20:41] VITALS: BP 114/66; PULSE 94
[2020-11-22] MEDS: Metoprolol Tartrate 100 MG TABLET PO (20:41)
[2020-11-22] MEDS: Apixaban 5 MG TABLET PO (20:41)
[2020-11-22] MEDS: Clindamycin Phosphate/D5W 600 MG/50 ML PIGGYBACK 100 MG IV (20:41)
[2020-11-22] MEDS: Miconazole 2 % Extra Thick Cr 56.7 Gm Tube 1 APPL TOPICAL (20:42)
[2020-11-22] MEDS: Insulin Lispro 100 UNIT/ML 3 ML VIAL SUBCUT (20:49)
[2020-11-22 20:51] LABS: Glucose, Whole Blood 205 mg/dL (60-115)
[2020-11-23] VITALS: BP 120/54; PULSE 75; RESP 20; TEMP 36.7; O2SAT 96
[2020-11-23] MEDS: 0.9 % Sodium Chloride Flush 3 ML SYRINGE IVFLUSH ×2 (00:05→08:13)
[2020-11-23 04:00] VITALS: BP 112/58; PULSE 70; RESP 18; TEMP 36.2; O2SAT 96
[2020-11-23] MEDS: Clindamycin Phosphate/D5W 600 MG/50 ML PIGGYBACK 100 MG IV (05:33)
[2020-11-23 07:39] LABS: Hematocrit 38.5 % (42-52); Hemoglobin 12.1 g/dl (14.0-18.0); Mean Corpuscular HGB Conc 31.4 g/dl (31.0-36.0); Mean Corpuscular Volume 92.3 fL (80-98); Mean Platelet Volume 12.4 fL (9.4-12.4); Platelet Count 136 X10*3/uL (160-400); Red Blood Count 4.17 X10*6/uL (4.60-5.80); Red Cell Distribution Width 14.7 % (11.0-16.0); White Blood Count 12.4 X10*3/uL (4.8-10.8)
[2020-11-23 07:41] LABS: Glucose, Whole Blood 131 mg/dL (60-115)
[2020-11-23 07:59] LABS: Anion Gap 16 (12-20); Blood Urea Nitrogen 30 mg/dL (9-16); Calcium 8.3 mg/dL (8.4-10.2); Carbon Dioxide 25 mmol/L (22-29); Chloride 103 mmol/L (96-108); Creatinine Clr Calc Pharmacy 66.4; Estimated Glomerular Filt Rate 49; Glucose Random 115 mg/dL (60-115); Potassium 4.6 mmol/L (3.3-5.1); Sodium 139 mmol/L (135-145)
[2020-11-23 08:00] VITALS: BP 122/58; PULSE 70; RESP 18; O2SAT 98
[2020-11-23 08:03] LABS: B Type Natriuretic Peptide 964 pg/mL (<100)
[2020-11-23 08:10] VITALS: TEMP 36.2
[2020-11-23] MEDS: Metoprolol Tartrate 100 MG TABLET PO (08:13)
[2020-11-23] MEDS: Apixaban 5 MG TABLET PO (08:13)
[2020-11-23] MEDS: Furosemide 40 MG/4 ML VIAL IVPUSH (08:13)
[2020-11-23] MEDS: Levothyroxine Sodium 75 MCG TABLET PO (08:13)
--- NOTE | 2020-11-23 10:42 | MHC.CM.PN ---
met with pt who explins thAT HE HAS SERVICES THRU [facility] WHO PROVIDE RECRUITING ADMINISTRATOR AND HOUSEKEEP[ING ,PT MAY NEED A VNA FOR WOUND CARE WHEN DISCHARGED..PT S SON WILL PROVIDE TRANSPORTATION HOME
[2020-11-23 10:48] VITALS: BP 104/46; PULSE 58; RESP 18; TEMP 36.4; O2SAT 97
[2020-11-23 11:26] LABS: Glucose, Whole Blood 173 mg/dL (60-115)
[2020-11-23] MEDS: Insulin Lispro 100 UNIT/ML 3 ML VIAL SUBCUT (11:59)
--- NOTE | 2020-11-23 13:16 | MHC.CM.PN ---
pt left ama
--- NOTE | 2020-11-23 13:49 | PM.EVENT ---
Event Note Date of Service: 11/25/20 Event Note: Discharge plan Discharge diagnosis Left leg cellulitis Left lower extremity swelling Patient was admitted and treated with IV Lasix and IV antibiotics with fair response. He decided to leave after 1 day of admission for personal issues. He asked for oral antibiotics and signed AMA papers to leave the hospital. He understands the risk of leaving before finishing treatment but willing to come back if his condition worsens.
--- NOTE | 2020-11-23 13:50 | PM.IMHP ---
History of Present Illness Date of Service: 11/22/20 Chief Complaint: Lower extremity swelling, erythema A 75 years old male with PMH of atrial fibrillation, HTN, hypothyroidism, diabetes, CKD among others who presented to the hospital complaining of worsening left lower extremity swelling, pain and erythema. The patient reports that over the last few weeks he gain more weight and notice more swelling in his lower extremities associated with difficulty ambulating at home and general weakness. He denies any fever or chills but reported recent cough with productive sputum with no shortness of breath or chest pain. He lives alone at home but he ran of the Lasix recently and was not taking it for the last 5 days prior to admission. The emergency was treated with IV antibiotics and IV Lasix admitted for further evaluation and treatment. Review of Systems Review of Systems: Constitutional : Alert, oriented, not in distress Neck : Normal inspection, Supple Cardiovascular : RRR, S1 S2, +1 edema RLE, +3 edema LLE Respiratory : Good bilateral air entry, no crackles, wheezes or rhonchi Gastrointestinal: soft, lax, Normal bowel sounds, Non tender Skin : Warm, Dry, left lower extremity erythema extending from the foot to above the knee level with associated mild warmth and tenderness, no drainage noted. Neurological : Alert & oriented x3, No focal deficit [facility] Medical History Afib Bilateral inguinal hernia Diabetes H/O renal calculi Inguinal hernia Lymphoma Family History Mother Breast cancer Surgical History History of ear surgery History of excision of mass History of excision of pilonidal cyst History of throat surgery Social History Household Members: None Housing: Apartment Do you presently have visiting nurse or other home services: Yes Alcohol intake: never Patient Tobacco Use Status: Former Tobacco user Use of substances other than those prescribed or required for medical reasons: No Currently Displaying Signs/Symptoms of Drug Intoxication Withdrawal: No Have you been hit, kicked, punched, or otherwise hurt by someone within the past year? If so, by whom?: No Do you feel safe in your current relationship?: No Current Relationship Is there a partner from a previous relationship who is making you feel unsafe now?: No Are you made to feel afraid or neglected: No Spiritual Healthcare Practices: no Taoism Healthcare Practices: no Cultural Healthcare Practices: no Advance Directives: Yes Advance Directives Information Provided: Yes Advance Directives on File: No Advance Directives Date on File: 11/22/20 Do you have thoughts of harming others: None Do you have a plan to hurt others: No Plan Recently lost weight without trying: No How much weight loss: Not applicable Eating poorly because of decreased appetite: No Nutrition screen score: 0 Nutrition Risks: No Nutritional Risk Poor oral hygiene: No service: No Meds Allergies Allergy/AdvReac Type Severity Reaction Status Date / Time No Known Allergies Allergy Verified 08/30/20 14:42 Active Medications: Current Medications Generic Name Dose Route Start Last Admin Trade Name Freq PRN Reason Stop Dose Admin Acetaminophen 650 mg 11/22/20 17:24 Acetaminophen 325 Mg Tablet PO Q6H PRN Pain, Mild (Pain Scale 1-3) Apixaban 5 mg 11/22/20 21:00 11/23/20 08:13 Apixaban 5 Mg Tablet PO 5 mg BID BENITO Administration Furosemide 40 mg 11/22/20 18:00 11/23/20 08:13 Furosemide 40 Mg/4 Ml Vial IVPUSH 40 mg BID@0900,1800 BENITO Administration Protocol Clindamycin Phosphate 600 mg in 50 mls @ 100 mls/hr 11/23/20 05:00 11/23/20 06:32 Cleocin IV Infused Q8H BENITO Infusion Insulin Human Lispro 0 unit 11/22/20 21:00 11/23/20 11:59 Insulin Lispro 100 Unit/Ml 3 Ml Vial SUBCUT 2 unit QIDACHS BENITO Administration Protocol Levothyroxine Sodium 75 mcg 11/23/20 09:00 11/23/20 08:13 Levothyroxine Sodium 75 Mcg Tablet PO 75 mcg DAILY BENITO Administration Metoprolol Tartrate 100 mg 11/22/20 21:00 11/23/20 08:13 Metoprolol Tartrate 100 Mg Tablet PO 100 mg TID BENITO Administration Protocol Miconazole Nitrate 1 appl 11/22/20 21:00 11/23/20 12:04 Miconazole 2 % Extra Thick Cr 56.7 Gm Tube TOPICAL Not Given BID [facility] Protocol Ondansetron HCl 4 mg 11/22/20 17:24 Ondansetron Hcl 4 Mg/2 Ml Vial IVPUSH Q8H PRN Nausea and Vomiting Sodium Chloride 3 ml 11/23/20 00:00 11/23/20 08:13 0.9 % Sodium Chloride Flush 3 Ml Syringe IVFLUSH 3 ml QSHIFT [facility] Administration Home Medications Medication Instructions Recorded Confirmed Last Taken Type apixaban 5 mg tablet (Eliquis) 1 tab PO BID 11/22/20 11/22/20 Unknown History levothyroxine 75 mcg tablet 1 tab PO DAILY 11/22/20 11/22/20 Unknown History metformin 500 mg tablet,extended 1 tab PO QAM 11/22/20 11/22/20 Unknown History release 24 hr metoprolol tartrate 100 mg tablet 1 tab PO TID 11/22/20 11/22/20 Unknown History Physical Exam Vital Signs and Narrative: Vital Signs: Last Vital Signs Temp 97.6 F 11/23/20 10:48 Pulse 58 11/23/20 10:48 Resp 18 11/23/20 10:48 BP 104/46 L 11/23/20 10:48 Pulse Ox 97 11/23/20 10:48 Body Mass Index 41.1 Results Labs CBC and Chem 7: 11/23/20 05:43 11/23/20 05:43 Labs: Laboratory Results - last 24 hr 11/22/20 11/22/20 11/22/20 12:07 12:08 12:08 MCV MCH MCHC RDW Plt Count MPV Immature Gran % (Auto) Neut % (Auto) Lymph % (Auto) [place] % (Auto) Eos % (Auto) Baso % (Auto) Lymph # (Auto) [place] # (Auto) Eos # (Auto) Baso # (Auto) Abs Immat Gran (auto) Absolute Neuts (auto) Absolute Nucleated RBC Nucleated RBC % (auto) Smear Tech's Comments Anion Gap 10 L Estim Creat Clear Calc 65.0 Estimated GFR 49 POC Glucose Random Glucose 129 H Calcium 8.5 D Magnesium 1.8 Total Bilirubin 1.3 H Direct Bilirubin 0.5 AST 14 ALT 7 Alkaline Phosphatase 67 Troponin I High Sens 89.3 H* B-Natriuretic Peptide 1275 H Total Protein 7.4 Albumin 3.3 L Urine Color Urine Appearance Urine pH Ur Specific [place] Urine Protein Urine Glucose (UA) Urine Ketones Urine Blood Urine Nitrite Ur Leukocyte Esterase Urine RBC Urine WBC Ur Squamous Epith Cells Amorphous Sediment Urine Bacteria 11/22/20 11/22/20 11/22/20 13:50 14:19 16:15 MCV 92.1 MCH 28.9 MCHC 31.4 RDW 14.5 Plt Count 130 L D MPV 12.0 Immature Gran % (Auto) 0.5 H Neut % (Auto) 83.5 H Lymph % (Auto) 5.7 L [place] % (Auto) 9.3 Eos % (Auto) 0.7 Baso % (Auto) 0.3 Lymph # (Auto) 0.7 L [place] # (Auto) 1.2 Eos # (Auto) 0.1 Baso # (Auto) 0.0 Abs Immat Gran (auto) 0.06 H Absolute Neuts (auto) 10.3 H Absolute Nucleated RBC 0.000 Nucleated RBC % (auto) 0.0 Smear Tech's Comments Not Reportable Anion Gap Estim Creat Clear Calc Estimated GFR POC Glucose Random Glucose Calcium Magnesium Total Bilirubin Direct Bilirubin AST ALT Alkaline Phosphatase Troponin I High Sens 89.1 H* B-Natriuretic Peptide Total Protein Albumin Urine Color YELLOW Urine Appearance CLEAR Urine pH 5.5 Ur Specific [place] 1.025 Urine Protein 2+ H Urine Glucose (UA) NEG Urine Ketones NEG Urine Blood 1+ H Urine Nitrite NEG Ur Leukocyte Esterase NEG Urine RBC 1-4 Urine WBC 0-2 Ur Squamous Epith Cells TRACE Amorphous Sediment 1+ Urine Bacteria NONE 11/22/20 11/23/20 11/23/20 20:36 05:43 05:43 MCV 92.3 MCH 29.0 MCHC 31.4 RDW 14.7 Plt Count 136 L MPV 12.4 Immature Gran % (Auto) Neut % (Auto) Lymph % (Auto) [place] % (Auto) Eos % (Auto) Baso % (Auto) Lymph # (Auto) [place] # (Auto) Eos # (Auto) Baso # (Auto) Abs Immat Gran (auto) Absolute Neuts (auto) Absolute Nucleated RBC 0.000 Nucleated RBC % (auto) 0.0 Smear Tech's Comments Anion Gap 16 Estim Creat Clear Calc 66.4 Estimated GFR 49 POC Glucose 205 H Random Glucose 115 Calcium 8.3 L Magnesium Total Bilirubin Direct Bilirubin AST ALT Alkaline Phosphatase Troponin I High Sens B-Natriuretic Peptide Total Protein Albumin Urine Color Urine Appearance Urine pH Ur Specific [place] Urine Protein Urine Glucose (UA) Urine Ketones Urine Blood Urine Nitrite Ur Leukocyte Esterase Urine RBC Urine WBC Ur Squamous Epith Cells Amorphous Sediment Urine Bacteria 11/23/20 11/23/20 11/23/20 05:43 07:19 10:51 MCV MCH MCHC RDW Plt Count MPV Immature Gran % (Auto) Neut % (Auto) Lymph % (Auto) [place] % (Auto) Eos % (Auto) Baso % (Auto) Lymph # (Auto) [place] # (Auto) Eos # (Auto) Baso # (Auto) Abs Immat Gran (auto) Absolute Neuts (auto) Absolute Nucleated RBC Nucleated RBC % (auto) Smear Tech's Comments Anion Gap Estim Creat Clear Calc Estimated GFR POC Glucose 131 H 173 H Random Glucose Calcium Magnesium Total Bilirubin Direct Bilirubin AST ALT Alkaline Phosphatase Troponin I High Sens B-Natriuretic Peptide 964 H Total Protein Albumin Urine Color Urine Appearance Urine pH Ur Specific [place] Urine Protein Urine Glucose (UA) Urine Ketones Urine Blood Urine Nitrite Ur Leukocyte Esterase Urine RBC Urine WBC Ur Squamous Epith Cells Amorphous Sediment Urine Bacteria Imaging Radiologist's Impressions: Impressions Venous Duplex 11/22/20 12:10 IMPRESSION: No evidence of deep venous thrombosis involving the bilateral lower extremities. Chest CT 11/22/20 14:33 IMPRESSION: Stable 1 cm right lower lobe nodule compared to study of September 07, 2019 and abdominal CTA of October 05, 2012. Enlarged ascending thoracic aorta at 4.1 cm in diameter. Deep tendon bibasilar atelectatic change. Assessment and Plan (1) Cellulitis: Status: Acute (2) Leg edema, left: Status: Acute A 75 years old male with PMH of atrial fibrillation, HTN, hypothyroidism, diabetes, CKD among others who presented to the hospital complaining of worsening left lower extremity swelling, pain and erythema Left lower extremity cellulitis Culture sent Ultrasound negative for DVT start IV antibiotic of clindamycin start antifungal cream for tinea pedis Leg swelling Start IV Lasix b.i.d. Sal wrap keep leg elevated Diabetes type 2 SSI Diabetic diet AFib continue Eliquis and metoprolol DVT PPX Eliquis Quality Stroke Does the patient have a stroke diagnosis?: No VTE Prior VTE?: No VTE Risk Level:: Medical - moderate - high VTE Device Contraindication: Treatment Not Indicated VTE Drug Contraindication: N/A - Med Ordered
== END 2020-11-23 15:00 | disposition left against medical advice (07) | DRG 603 ==
LOC: HO.ED 16:55 → HO.EDOVER 17:43 → HO.IMC 18:04
PROVIDERS: Nurse Practitioner Family; Admitting Provider Student in an Organized Health Care Education/Training Program; Emergency Provider Emergency Medicine; PCP Internal Medicine; Visit Provider Student in an Organized Health Care Education/Training Program
DX: L03.116 Cellulitis of left lower limb (principal); I13.0 Hypertensive heart and chronic kidney disease with heart failure and stage 1 through stage 4 chronic kidney disease, or unspecified chronic kidney disease; Z20.822 Contact with and (suspected) exposure to COVID-19; E03.9 Hypothyroidism, unspecified; E11.22 Type 2 diabetes mellitus with diabetic chronic kidney disease; B35.3 Tinea pedis; N18.9 Chronic kidney disease, unspecified; I50.9 Heart failure, unspecified; Z87.891 Personal history of nicotine dependence; Z79.84 Long term (current) use of oral hypoglycemic drugs; Z79.01 Long term (current) use of anticoagulants; Z79.890 Hormone replacement therapy; Z79.899 Other long term (current) drug therapy
CPT/HCPCS: 36415; 71046; 71250; 80048; 80076; 81001; 82947; 83735; 83880; 84484; 85025; 85027; 87635; 93005; 93970; 99285; J1940; J2543

== ENCOUNTER 2020-12-06 07:27 | Outpatient (REF) | payer MEDICARE, OTHER, SELFPAY ==
[2020-12-06 11:08] LABS: MANUAL DIFF FLAG NO
[2020-12-06 11:23] LABS: Estimated Average Glucose 148 mg/dL; Hemoglobin A1C 149.5706 umol/L; Hemoglobin A1c % 6.8 %
[2020-12-06 11:25] LABS: Basophils Percent Auto 0.3 % (0-2); Eosinophils Absolute Auto 0.2 X10*3/uL (0.0-0.4); Eosinophils Percent Auto 1.9 % (0-4); Hematocrit 35.5 % (42-52); Imm Gran Abs Auto 0.04 X10*3/uL (0.00-0.03); Imm Gran Pct Auto 0.4 % (0.0-0.4); Lymphocytes Absolute Auto 0.8 X10*3/uL (1.2-4.9); Lymphocytes Percent Auto 9.2 % (20-40); Mean Corpuscular Hemoglobin 28.5 pg (27.0-33.0); Monocytes Absolute Auto 0.7 X10*3/uL (0.1-1.2); Monocytes Percent Auto 7.3 % (2-11); Neutrophils Absolute Auto 7.2 X10*3/uL (2.0-8.3); Neutrophils Percent Auto 80.9 % (45-73); Platelet Count 215 X10*3/uL (160-400); Red Blood Count 3.86 X10*6/uL (4.60-5.80); White Blood Count 8.9 X10*3/uL (4.8-10.8)
[2020-12-06 11:36] LABS: B Type Natriuretic Peptide 930 pg/mL (<100)
[2020-12-06 11:47] LABS: Alanine Aminotransferase 7 U/L (0-40); Albumin Level 3.1 g/dL (3.5-5.0); Alkaline Phosphatase 65 U/L (39-117); Anion Gap 13 (12-20); Aspartate Amino Transferase 15 U/L (5-37); Bilirubin Total 0.3 mg/dL (0.0-1.0); Blood Urea Nitrogen 30 mg/dL (9-16); Calcium 8.6 mg/dL (8.4-10.2); Carbon Dioxide 29 mmol/L (22-29); Chloride 102 mmol/L (96-108); Cholesterol 148 mg/dL; Estimated Glomerular Filt Rate 51; Glucose Fasting 134 mg/dL (60-99); HDL Cholesterol 27 mg/dL; LDL Cholesterol Calculated 107 mg/dl; Potassium 4.9 mmol/L (3.3-5.1); Sodium 139 mmol/L (135-145); Total Protein 7.7 g/dL (6.5-8.0); Triglycerides 72 mg/dL
[2020-12-06 11:52] LABS: Thyroid Stimulating Hormone 5.26 uIU/mL (0.32-4.0)
== END 2020-12-06 07:28 | disposition home or self-care (01) ==
LOC: HO.HMGCLDS 07:27
PROVIDERS: PCP Internal Medicine; Visit Provider Internal Medicine
DX: I50.22 Chronic systolic (congestive) heart failure (principal); I48.21 Permanent atrial fibrillation; E03.9 Hypothyroidism, unspecified; E11.9 Type 2 diabetes mellitus without complications
CPT/HCPCS: 36415; 80053; 80061; 83036; 83880; 84443; 85025

== ENCOUNTER 2021-01-09 06:06 | Emergency (ER) | payer MEDICARE, OTHER, SELFPAY ==
--- NOTE | 2021-01-09 | ECG_ITS ---
Test Reason : WEAKNESS Blood Pressure : / mmHG Vent. Rate : 072 BPM Atrial Rate : 070 BPM P-R Int : 000 ms QRS Dur : 152 ms QT Int : 450 ms P-R-T Axes : 000 052 -15 degrees QTc Int : 492 ms Junctional rhythm with occasional Premature ventricular complexes Right bundle branch block Abnormal ECG Junctional rhythm has replaced Normal sinus rhythm with 1st degree A-V block Premature ventricular complexes is new Referred By: Generic ED Physician Electronically Signed By:LINA BENITES MD
--- NOTE | ~2021-01-09 | CT_ITS ---
EXAMINATION: CT SOFT TISSUE NECK WITH CONTRAST CLINICAL INFORMATION: Pain/lump in right side of neck. COMPARISON: Neck CT dated 09/07/2019. Chest CT dated 11/22/2020. TECHNIQUE: Following the intravenous administration of 60 mL of Omnipaque 350 intravenous contrast, helical imaging was performed in the axial plane with generation of coronal and sagittal reformatted images. This CT examination was performed using dose optimization techniques as appropriate, variously including the following: *Automated exposure control *Adjustment of mA and/or kV according to patient size (this includes techniques or standardized protocols for targeted exams where dose is matched to indication/reason for exam; i.e. extremities or head) *Use of iterative reconstruction technique DLP: 1299 mGy-cm FINDINGS: No cervical adenopathy is identified. The parotid glands are homogeneous in attenuation. The submandibular glands are normal. No contour abnormality or pathologic enhancement is seen within the oral cavity or pharyngeal mucosal space. Status post right thyroidectomy. No new mass or nodularity in the thyroid fossa. The laryngeal structures are normal. The parapharyngeal fat is preserved. The carotid sheath vasculature opacify normally. No extra mucosal soft tissue mass or fluid collection is seen. No retropharyngeal fluid collection is seen. The thyroid gland is normal. The superior mediastinum is unremarkable. Partially visualized airspace consolidation within the anterosuperior aspect of the left lower lobe, which could represent atelectasis versus infiltrates. The mastoid air cells and visualized portions of the paranasal sinuses are well-aerated. The temporomandibular joints are normal. No periapical disease is identified. The imaged portions of the brain parenchyma are unremarkable. Grade 1 anterolisthesis of C4 on C5. Prominent multilevel degenerative disc disease and bilateral facet arthropathy. Findings are similar when compared to the prior examination. CT/CT soft tissue neck w con IMPRESSION: No soft tissue mass or fluid collection within the right side of the neck. Status post right thyroidectomy without recurrent thyroid tissue or nodularity. Multilevel degenerative disc disease redemonstrated within the cervical spine, unchanged. Partially visualized atelectasis versus infiltrates in the anterosuperior aspect of the left lower lobe.
--- NOTE | ~2021-01-09 | XR_ITS ---
EXAMINATION: CHEST PORTABLE 2 VIEWS AND LEFT FOURTH TOE 4 VIEWS CLINICAL INFORMATION: Fever. Assess for pneumonia. Question osteomyelitis COMPARISON: Baseline including 07/23/2020 TECHNIQUE: As above FINDINGS: Low lung volumes. There is a small nonspecific effusion and patchy airspace disease at both bases. Appearance is suspicious for pneumonia. Especially on the left. No CHF. Heart and mediastinum grossly normal for technique. Left fourth toe imaging demonstrates no definitive findings of osteomyelitis. No soft tissue gas. There is a deformity of the distal aspect of the third proximal phalanx related to previous trauma. There is resection of the second toe at the level of the metatarsal bone. Erosive change about the first metatarsal head. No other discrete lesion. XR/XR chest 1V IMPRESSION: Findings suspicious for left lower lobe pneumonia with a small parapneumonic effusion. No specific findings of osteomyelitis fourth toe. Chronic findings as above.
--- NOTE | ~2021-01-09 | XR_ITS ---
EXAMINATION: CHEST PORTABLE 2 VIEWS AND LEFT FOURTH TOE 4 VIEWS CLINICAL INFORMATION: Fever. Assess for pneumonia. Question osteomyelitis COMPARISON: Baseline including 07/23/2020 TECHNIQUE: As above FINDINGS: Low lung volumes. There is a small nonspecific effusion and patchy airspace disease at both bases. Appearance is suspicious for pneumonia. Especially on the left. No CHF. Heart and mediastinum grossly normal for technique. Left fourth toe imaging demonstrates no definitive findings of osteomyelitis. No soft tissue gas. There is a deformity of the distal aspect of the third proximal phalanx related to previous trauma. There is resection of the second toe at the level of the metatarsal bone. Erosive change about the first metatarsal head. No other discrete lesion. XR/XR toe LT min 2V IMPRESSION: Findings suspicious for left lower lobe pneumonia with a small parapneumonic effusion. No specific findings of osteomyelitis fourth toe. Chronic findings as above.
[2021-01-09 06:23] VITALS: BP 111/47; BP 128/88; PULSE 67; PULSE 68; RESP 16; TEMP 36.6; O2SAT 97; BMI 38.9
[2021-01-09 06:53] LABS: Strep A Nucleic Acid Negative (Negative)
--- NOTE | 2021-01-09 07:13 | ED.GENADULT ---
HPI - General Adult General Chief complaint: General Medical Stated complaint: weakness Time Seen by Provider: 01/09/21 06:58 Source: patient Mode of arrival: ambulatory Limitations: no limitations History of Present Illness HPI narrative: Patient comes emergency room complaining of weakness, sore throat, states that he feels that he has a golf ball stuck in his throat on the right side. Patient reports congestion, no chest pain, no shortness of breath. On arrival it was noted that patient has necrotic toe on the left foot. Patient states that he 1st noticed it approximately 5 days ago, it does not hurt. Related Data Home Medications Medication Instructions Recorded Confirmed apixaban 5 mg tablet (Eliquis) 1 tab PO BID 11/22/20 01/09/21 metoprolol tartrate 100 mg tablet 1 tab PO BID 11/22/20 01/09/21 Tumeric 1 tab PO DAILY 01/09/21 01/09/21 atorvastatin 10 mg tablet 1 tab PO DAILY 01/09/21 01/09/21 furosemide 40 mg tablet (Lasix) 40 mg PO DAILY 01/09/21 01/09/21 levothyroxine 50 mcg tablet 1 tab PO BEDTIME 01/09/21 01/09/21 (Euthyrox) metformin 1,000 mg tablet 1 tab PO DAILY 01/09/21 01/09/21 omega-3 fatty acids 2,000 mg PO DAILY 01/09/21 01/09/21 Previous Rx's Medication Instructions Recorded cefpodoxime 100 mg tablet 100 mg PO BID #20 tab 01/09/21 Allergies Allergy/AdvReac Type Severity Reaction Status Date / Time No Known Allergies Allergy Verified 01/09/21 06:34 Review of Systems Review of Systems: Constitutional : No Weight loss, No Fever, No Chills, No Night Sweat, complaining of fatigue, weakness ENT/Mouth : No Hearing loss, No Ear Pain, No Nasal Congestion, No Sinus Pain, No Hoarseness, complaining of sore throat, complaining of a golf ball like sensation in the right side of his neck, complaining of congestion without Rhinorrhea, No Swallowing Difficulty Eyes: No Eye Pain, No Swelling, No Redness, No Foreign Body, No Discharge, No Vision Changes Cardiovascular : No Chest Pain, No SOB, No Dyspnea on Exertion, No Orthopnea, No Edema, No Palpitations Respiratory : No Cough, No Sputum, No Wheezing, No Smoke Exposure, No Dyspnea Gastrointestinal : No Nausea, No Vomiting, No Diarrhea, No Constipation, No abdominal Pain, No Hematochezia, No Melena Genitourinary : no irregular bleeding, No Dysuria, No Urinary Frequency, No Hematuria, No Urinary Incontinence, No Urgency, No Flank Pain, No Urinary Flow Changes, No Hesitancy Musculoskeletal : No joint pain, No Myalgias, No Joint Swelling Skin : No Skin Lesions, No rash Neuro : No Weakness, No Numbness, No Paresthesias, No Loss of Consciousness, No Dizziness, No Headache Psych : No Anxiety/Panic, No Depression, No SI/HI/AH/VH, No Social Issues, Heme/Lymph: No Bruising, No Bleeding,No Lymphadenopathy Endocrine : No Polyuria, No Polydipsia, No Temperature Intolerance [facility] Past Medical History Medical History Afib Bilateral inguinal hernia Diabetes H/O renal calculi Inguinal hernia Lymphoma Surgical History History of ear surgery History of excision of mass History of excision of pilonidal cyst History of throat surgery Family History Family History Mother Breast cancer Social History Social History Household Members: None Housing: Apartment Do you presently have visiting nurse or other home services: Yes Alcohol intake: former Patient Tobacco Use Status: Former Tobacco user Use of substances other than those prescribed or required for medical reasons: No Advance Directives: Yes Advance Directives on File: Yes Advance Directives Date on File: 11/22/20 service: No Physical Exam Vital Signs: Vital Signs: Last Vital Signs Temp 97.9 F 01/09/21 06:23 Pulse 73 01/09/21 12:14 Resp 20 01/09/21 12:14 BP 104/57 L 01/09/21 12:14 Pulse Ox 94 01/09/21 12:14 Body Mass Index 38.9 Const: Other: Appearance: Alert. Oriented X3. No acute distress. Eyes: Pupils equal, round and reactive to light. ENT: Pharynx normal. Palpable lymph node/lump on the right side of the neck Neck: Normal inspection. Neck supple. No lymph nodes noted. No crepitus CVS: Normal heart rate and rhythm. Pulses normal. Normal S1 and S2 Respiratory: No respiratory distress. Breath sounds normal. No Wheezing. No rales Abdomen: Soft and nontender. No rigidity. No distention. good BS x4 Skin: Skin warm and dry. Patient's face and chest covered in vapor rub Extremities: Chronic bilateral lower extremity edema with chronic venous stasis, 4th toe on the left foot is necrotic, dry gangrene Neuro: Oriented X 3. No motor deficit. No sensory deficit. Moving all extermities. No slurred speech. Course Course Course Narrative: Chest x-ray suspicious for left lower lobe pneumonia versus effusion. So far we do not have any labs back, we will treat empirically. Patient's labs are at baseline including creatinine, troponin and BNP. Chest x-ray shows possible pneumonia versus small effusion. Patient's oxygen saturation remained 95% on ambulation trial, patient denied chest pain or shortness of breath. Patient was given in the emergency room 1 dose of ceftriaxone. Patient will be discharged with antibiotics. CT scan negative for neck masses Patient has a chronic necrotic toe on the left foot. Patient states it has been present for 5 days, however this is unlikely given the appearance. Patient instructed to follow-up with his PCP and with Dr. Covington from vascular surgery. Patient's white blood cell count 9.1, lactic acid back to normal, is not suspected. Medical Decision Making Lab Data Result diagrams: 01/09/21 09:02 01/09/21 09:02 Labs: Lab Results 01/09/21 01/09/21 01/09/21 Range/Units 06:38 06:38 08:26 WBC (4.8-10.8) X10*3/uL RBC (4.60-5.80) X10*6/uL Hgb (14.0-18.0) g/dl Hct (42-52) % MCV (80-98) fL MCH (27.0-33.0) pg MCHC (31.0-36.0) g/dl RDW (11.0-16.0) % Plt Count (160-400) X10*3/uL MPV (9.4-12.4) fL Immature Gran % (Auto) (0.0-0.4) % Neut % (Auto) (45-73) % Lymph % (Auto) (20-40) % [place] % (Auto) (2-11) % Eos % (Auto) (0-4) % Baso % (Auto) (0-2) % Lymph # (Auto) (1.2-4.9) X10*3/uL [place] # (Auto) (0.1-1.2) X10*3/uL Eos # (Auto) (0.0-0.4) X10*3/uL Baso # (Auto) (0.0-0.2) X10*3/uL Abs Immat Gran (auto) (0.00-0.03) X10*3/uL Absolute Neuts (auto) (2.0-8.3) X10*3/uL Absolute Nucleated RBC (0.0-0.012) X10*3/uL Nucleated RBC % (auto) (0.0-0.2) /100WBC PT (9.9-13.0) SEC INR (0.9-1.1) Sodium (135-145) mmol/L Potassium (3.3-5.1) mmol/L Chloride (96-108) mmol/L Carbon Dioxide (22-29) mmol/L Anion Gap (12-20) BUN (9-16) mg/dL Creatinine (0.5-1.4) mg/dL Estim Creat Clear Calc Estimated GFR Random Glucose (60-115) mg/dL Lactic Acid 3.0 H* (0.5-2.0) mmol/L Lactic Acid Fup @ 2Hr (0.5-2.0) mmol/L Calcium (8.4-10.2) mg/dL Total Bilirubin (0.0-1.0) mg/dL Direct Bilirubin (0.0-0.5) mg/dL AST (5-37) U/L ALT (0-40) U/L Alkaline Phosphatase (39-117) U/L Troponin I High Sens (<3.5-35.0) ng/L B-Natriuretic Peptide (<100) pg/mL Total Protein (6.5-8.0) g/dL Albumin (3.5-5.0) g/dL TSH (0.32-4.0) uIU/mL Urine Color Urine Appearance Urine pH (5.0-8.0) Ur Specific [place] (1.005-1.025) Urine Protein (NEG-TRACE) MG/DL Urine Glucose (UA) (NEG) MG/DL Urine Ketones (NEG) MG/DL Urine Blood (NEG) Urine Nitrite (NEG) Ur Leukocyte Esterase (NEG) Urine RBC (0) /HPF Urine WBC (0-4) /HPF Ur Squamous Epith Cells /LPF Urine Bacteria /LPF Coronavirus (PCR) NEGATIVE (Negative) Influenza Type A (PCR) NEGATIVE (Negative) Influenza Type B (PCR) NEGATIVE (Negative) RSV RNA Qual (PCR) NEGATIVE (Negative) S. pyogenes GrpA AYLIN Negative (Negative) 01/09/21 01/09/21 01/09/21 Range/Units 08:26 08:26 09:02 WBC 9.1 (4.8-10.8) X10*3/uL RBC 4.34 L (4.60-5.80) X10*6/uL Hgb 12.5 L (14.0-18.0) g/dl Hct 40.1 L (42-52) % MCV 92.4 (80-98) fL MCH 28.8 (27.0-33.0) pg MCHC 31.2 (31.0-36.0) g/dl RDW 14.4 (11.0-16.0) % Plt Count 166 (160-400) X10*3/uL MPV 11.7 (9.4-12.4) fL Immature Gran % (Auto) 0.4 (0.0-0.4) % Neut % (Auto) 82.3 H (45-73) % Lymph % (Auto) 7.2 L (20-40) % [place] % (Auto) 7.3 (2-11) % Eos % (Auto) 2.5 (0-4) % Baso % (Auto) 0.3 (0-2) % Lymph # (Auto) 0.7 L (1.2-4.9) X10*3/uL [place] # (Auto) 0.7 (0.1-1.2) X10*3/uL Eos # (Auto) 0.2 (0.0-0.4) X10*3/uL Baso # (Auto) 0.0 (0.0-0.2) X10*3/uL Abs Immat Gran (auto) 0.04 H (0.00-0.03) X10*3/uL Absolute Neuts (auto) 7.5 (2.0-8.3) X10*3/uL Absolute Nucleated RBC 0.000 (0.0-0.012) X10*3/uL Nucleated RBC % (auto) 0.0 (0.0-0.2) /100WBC PT (9.9-13.0) SEC INR (0.9-1.1) Sodium (135-145) mmol/L Potassium (3.3-5.1) mmol/L Chloride (96-108) mmol/L Carbon Dioxide (22-29) mmol/L Anion Gap (12-20) BUN (9-16) mg/dL Creatinine (0.5-1.4) mg/dL Estim Creat Clear Calc Estimated GFR Random Glucose (60-115) mg/dL Lactic Acid (0.5-2.0) mmol/L Lactic Acid Fup @ 2Hr (0.5-2.0) mmol/L Calcium (8.4-10.2) mg/dL Total Bilirubin (0.0-1.0) mg/dL Direct Bilirubin (0.0-0.5) mg/dL AST (5-37) U/L ALT (0-40) U/L Alkaline Phosphatase (39-117) U/L Troponin I High Sens (<3.5-35.0) ng/L B-Natriuretic Peptide 898 H (<100) pg/mL Total Protein (6.5-8.0) g/dL Albumin (3.5-5.0) g/dL TSH 3.45 (0.32-4.0) uIU/mL Urine Color Urine Appearance Urine pH (5.0-8.0) Ur Specific [place] (1.005-1.025) Urine Protein (NEG-TRACE) MG/DL Urine Glucose (UA) (NEG) MG/DL Urine Ketones (NEG) MG/DL Urine Blood (NEG) Urine Nitrite (NEG) Ur Leukocyte Esterase (NEG) Urine RBC (0) /HPF Urine WBC (0-4) /HPF Ur Squamous Epith Cells /LPF Urine Bacteria /LPF Coronavirus (PCR) (Negative) Influenza Type A (PCR) (Negative) Influenza Type B (PCR) (Negative) RSV RNA Qual (PCR) (Negative) S. pyogenes GrpA AYLIN (Negative) 01/09/21 01/09/21 01/09/21 Range/Units 09:02 09:02 09:02 WBC (4.8-10.8) X10*3/uL RBC (4.60-5.80) X10*6/uL Hgb (14.0-18.0) g/dl Hct (42-52) % MCV (80-98) fL MCH (27.0-33.0) pg MCHC (31.0-36.0) g/dl RDW (11.0-16.0) % Plt Count (160-400) X10*3/uL MPV (9.4-12.4) fL Immature Gran % (Auto) (0.0-0.4) % Neut % (Auto) (45-73) % Lymph % (Auto) (20-40) % [place] % (Auto) (2-11) % Eos % (Auto) (0-4) % Baso % (Auto) (0-2) % Lymph # (Auto) (1.2-4.9) X10*3/uL [place] # (Auto) (0.1-1.2) X10*3/uL Eos # (Auto) (0.0-0.4) X10*3/uL Baso # (Auto) (0.0-0.2) X10*3/uL Abs Immat Gran (auto) (0.00-0.03) X10*3/uL Absolute Neuts (auto) (2.0-8.3) X10*3/uL Absolute Nucleated RBC (0.0-0.012) X10*3/uL Nucleated RBC % (auto) (0.0-0.2) /100WBC PT 17.6 H (9.9-13.0) SEC INR 1.5 H (0.9-1.1) Sodium 142 (135-145) mmol/L Potassium 5.0 (3.3-5.1) mmol/L Chloride 100 (96-108) mmol/L Carbon Dioxide 36 H (22-29) mmol/L Anion Gap 11 L (12-20) BUN 41 H (9-16) mg/dL Creatinine 1.41 H (0.5-1.4) mg/dL Estim Creat Clear Calc 66.7 Estimated GFR 49 Random Glucose 139 H (60-115) mg/dL Lactic Acid (0.5-2.0) mmol/L Lactic Acid Fup @ 2Hr (0.5-2.0) mmol/L Calcium 9.2 D (8.4-10.2) mg/dL Total Bilirubin 0.7 (0.0-1.0) mg/dL Direct Bilirubin 0.3 (0.0-0.5) mg/dL AST 16 (5-37) U/L ALT 12 (0-40) U/L Alkaline Phosphatase 71 (39-117) U/L Troponin I High Sens 20.9 D (<3.5-35.0) ng/L B-Natriuretic Peptide (<100) pg/mL Total Protein 8.2 H (6.5-8.0) g/dL Albumin 3.2 L (3.5-5.0) g/dL TSH (0.32-4.0) uIU/mL Urine Color Urine Appearance Urine pH (5.0-8.0) Ur Specific [place] (1.005-1.025) Urine Protein (NEG-TRACE) MG/DL Urine Glucose (UA) (NEG) MG/DL Urine Ketones (NEG) MG/DL Urine Blood (NEG) Urine Nitrite (NEG) Ur Leukocyte Esterase (NEG) Urine RBC (0) /HPF Urine WBC (0-4) /HPF Ur Squamous Epith Cells /LPF Urine Bacteria /LPF Coronavirus (PCR) (Negative) Influenza Type A (PCR) (Negative) Influenza Type B (PCR) (Negative) RSV RNA Qual (PCR) (Negative) S. pyogenes GrpA AYLIN (Negative) 01/09/21 01/09/21 Range/Units 09:04 11:14 WBC (4.8-10.8) X10*3/uL RBC (4.60-5.80) X10*6/uL Hgb (14.0-18.0) g/dl Hct (42-52) % MCV (80-98) fL MCH (27.0-33.0) pg MCHC (31.0-36.0) g/dl RDW (11.0-16.0) % Plt Count (160-400) X10*3/uL MPV (9.4-12.4) fL Immature Gran % (Auto) (0.0-0.4) % Neut % (Auto) (45-73) % Lymph % (Auto) (20-40) % [place] % (Auto) (2-11) % Eos % (Auto) (0-4) % Baso % (Auto) (0-2) % Lymph # (Auto) (1.2-4.9) X10*3/uL [place] # (Auto) (0.1-1.2) X10*3/uL Eos # (Auto) (0.0-0.4) X10*3/uL Baso # (Auto) (0.0-0.2) X10*3/uL Abs Immat Gran (auto) (0.00-0.03) X10*3/uL Absolute Neuts (auto) (2.0-8.3) X10*3/uL Absolute Nucleated RBC (0.0-0.012) X10*3/uL Nucleated RBC % (auto) (0.0-0.2) /100WBC PT (9.9-13.0) SEC INR (0.9-1.1) Sodium (135-145) mmol/L Potassium (3.3-5.1) mmol/L Chloride (96-108) mmol/L Carbon Dioxide (22-29) mmol/L Anion Gap (12-20) BUN (9-16) mg/dL Creatinine (0.5-1.4) mg/dL Estim Creat Clear Calc Estimated GFR Random Glucose (60-115) mg/dL Lactic Acid (0.5-2.0) mmol/L Lactic Acid Fup @ 2Hr 2.0 (0.5-2.0) mmol/L Calcium (8.4-10.2) mg/dL Total Bilirubin (0.0-1.0) mg/dL Direct Bilirubin (0.0-0.5) mg/dL AST (5-37) U/L ALT (0-40) U/L Alkaline Phosphatase (39-117) U/L Troponin I High Sens (<3.5-35.0) ng/L B-Natriuretic Peptide (<100) pg/mL Total Protein (6.5-8.0) g/dL Albumin (3.5-5.0) g/dL TSH (0.32-4.0) uIU/mL Urine Color STRAW Urine Appearance CLEAR Urine pH 6.0 (5.0-8.0) Ur Specific [place] 1.010 (1.005-1.025) Urine Protein NEG (NEG-TRACE) MG/DL Urine Glucose (UA) NEG (NEG) MG/DL Urine Ketones NEG (NEG) MG/DL Urine Blood TRACE (NEG) Urine Nitrite NEG (NEG) Ur Leukocyte Esterase NEG (NEG) Urine RBC 1-4 (0) /HPF Urine WBC 0 (0-4) /HPF Ur Squamous Epith Cells NONE /LPF Urine Bacteria NONE /LPF Coronavirus (PCR) (Negative) Influenza Type A (PCR) (Negative) Influenza Type B (PCR) (Negative) RSV RNA Qual (PCR) (Negative) S. pyogenes GrpA AYLIN (Negative) Imaging Data Chest x-ray and toe x-ray: Radiologist's impression: FINDINGS: Low lung volumes. There is a small nonspecific effusion and patchy airspace disease at both bases. Appearance is suspicious for pneumonia. Especially on the left. No CHF. Heart and mediastinum grossly normal for technique. Left fourth toe imaging demonstrates no definitive findings of osteomyelitis. No soft tissue gas. There is a deformity of the distal aspect of the third proximal phalanx related to previous trauma. There is resection of the second toe at the level of the metatarsal bone. Erosive change about the first metatarsal head. No other discrete lesion.? XR/XR toe LT min 2V IMPRESSION: Findings suspicious for left lower lobe pneumonia with a small parapneumonic effusion. ? No specific findings of osteomyelitis fourth toe. Chronic findings as above.? Discharge Plan Discharge Clinical Impression: Pneumonia, Necrosis of toe Patient Disposition: Home, Self-Care Instructions: Pneumonia (ED) Additional Instructions: Please follow-up with Dr. Covington. Insert discharge Prescriptions: New cefpodoxime 100 mg tablet 100 mg PO BID Qty: 20 RF: 0 No Action metoprolol tartrate 100 mg tablet 1 tab PO BID RF: 0 Eliquis 5 mg tablet 1 tab PO BID RF: 0 atorvastatin 10 mg tablet 1 tab PO DAILY RF: 0 levothyroxine [Euthyrox] 50 mcg tablet 1 tab PO BEDTIME RF: 0 metformin 1,000 mg tablet 1 tab PO DAILY RF: 0 furosemide [Lasix] 40 mg tablet 40 mg PO DAILY RF: 0 [place] 3 Capsule 2,000 mg PO DAILY RF: 0 Tumeric 1 tab PO DAILY RF: 0 Referrals: Delvin Covington MD [Physician] - 2 days (Chronic necrotic toe)
[2021-01-09 07:48] LABS: Influenza A PCR NEGATIVE (Negative); Influenza B PCR NEGATIVE (Negative); Resp Syncy Virus RNA Qual PCR NEGATIVE (Negative); SARS COV2 PCR INHOUSE NEGATIVE (Negative)
[2021-01-09 08:31] VITALS: BP 105/50; PULSE 84; RESP 18; O2SAT 93
--- NOTE | 2021-01-09 08:43 | PC.NURSE ---
PT ALERT AND ORIENTED, SKIN PWD, RESPIRATIONS EVEN AND UNLABORED, PT REPORTS GENERAL WEAKNESS, AND SORE THROAT FEELS LIKE THERE IS SOMETHING STUCK IN THE THROAT, BILATERAL EXTREMITIES VERY SWOLLEN/SCALY SKIN/RED SKIN/WEEPING LEFT FOOT ONLY FOUR TOES, APPEARS THAT THE SECOND TOE WAS AMPUTATED THE THIRD TOP OF THE THIRD TOE BLACK/NECROTIC VS STABLE
[2021-01-09 08:57] LABS: B Type Natriuretic Peptide 898 pg/mL (<100)
[2021-01-09 09:12] LABS: TSH reflex Free T4 3.45 uIU/mL (0.32-4.0)
[2021-01-09 09:19] LABS: MANUAL DIFF FLAG NO
[2021-01-09 09:21] LABS: Basophils Percent Auto 0.3 % (0-2); Eosinophils Absolute Auto 0.2 X10*3/uL (0.0-0.4); Eosinophils Percent Auto 2.5 % (0-4); Hematocrit 40.1 % (42-52); Hemoglobin 12.5 g/dl (14.0-18.0); Imm Gran Abs Auto 0.04 X10*3/uL (0.00-0.03); Imm Gran Pct Auto 0.4 % (0.0-0.4); Lymphocytes Absolute Auto 0.7 X10*3/uL (1.2-4.9); Lymphocytes Percent Auto 7.2 % (20-40); Mean Corpuscular HGB Conc 31.2 g/dl (31.0-36.0); Mean Corpuscular Hemoglobin 28.8 pg (27.0-33.0); Mean Corpuscular Volume 92.4 fL (80-98); Mean Platelet Volume 11.7 fL (9.4-12.4); Monocytes Absolute Auto 0.7 X10*3/uL (0.1-1.2); Monocytes Percent Auto 7.3 % (2-11); Neutrophils Absolute Auto 7.5 X10*3/uL (2.0-8.3); Neutrophils Percent Auto 82.3 % (45-73); Platelet Count 166 X10*3/uL (160-400); Red Blood Count 4.34 X10*6/uL (4.60-5.80); Red Cell Distribution Width 14.4 % (11.0-16.0); White Blood Count 9.1 X10*3/uL (4.8-10.8)
[2021-01-09 09:22] LABS: Appearance Urine CLEAR; Color Urine STRAW; Glucose Urine UA NEG (NEG); Leukocyte Esterase Urine NEG (NEG); Nitrite Urine NEG (NEG); UACC Culture Trigger NO; Urine Blood TRACE (NEG); Urine Ketones NEG (NEG); Urine Protein NEG (NEG-TRACE)
[2021-01-09 09:27] LABS: INTERNATIONAL NORM RATIO 1.5 (0.9-1.1); Prothrombin Time 17.6 SEC (9.9-13.0)
[2021-01-09 09:35] LABS: WBC Urine 0 /HPF (0-4)
[2021-01-09 09:38] LABS: Alanine Aminotransferase 12 U/L (0-40); Albumin Level 3.2 g/dL (3.5-5.0); Alkaline Phosphatase 71 U/L (39-117); Anion Gap 11 (12-20); Aspartate Amino Transferase 16 U/L (5-37); Bilirubin Direct 0.3 mg/dL (0.0-0.5); Bilirubin Total 0.7 mg/dL (0.0-1.0); Blood Urea Nitrogen 41 mg/dL (9-16); Calcium 9.2 mg/dL (8.4-10.2); Carbon Dioxide 36 mmol/L (22-29); Chloride 100 mmol/L (96-108); Creatinine Clr Calc Pharmacy 66.7; Estimated Glomerular Filt Rate 49; Glucose Random 139 mg/dL (60-115); Sodium 142 mmol/L (135-145); Total Protein 8.2 g/dL (6.5-8.0)
[2021-01-09 09:41] LABS: Troponin-I High Sensitivity 20.9 ng/L (<3.5-35.0)
[2021-01-09 10:29] LABS: Reflex Lactate? Lactic Acid Added
[2021-01-09] MEDS: iohexoL 350 MG/ML 100 ML INFUS..BTL IV (10:32)
[2021-01-09] MEDS: cefTRIAXone sodium 1 GM in 0.9 % Sodium Chloride 50 ML IV (11:16)
[2021-01-09] MEDS: 0.9 % Sodium Chloride 1,000 ML 999 ML IVCONT (11:16)
--- NOTE | 2021-01-09 11:17 | PC.NURSE ---
Adis is resting in bed alert and oriented x 3. Lactate obtained at this time by rf technician. He is speaking in full sentences, denies chest pain, respirations non-labored, room air sat's 95% or better. HR 0's, SR, on bedside monitor.
[2021-01-09 11:26] VITALS: BP 107/55; PULSE 72; RESP 14
--- NOTE | 2021-01-09 11:35 | PHA.MEDREC ---
Pharmacy Consult ? Medication Reconciliation Pharmacy has completed the medication reconciliation. There are no remarkable issues for provider's attention. Queta Muñoz, NoeD
[2021-01-09 12:14] VITALS: BP 104/57; PULSE 73; RESP 20; O2SAT 94
--- NOTE | 2021-01-09 12:36 | PC.RT ---
pt ambulated on room air. sats 95% hr 70. after walking appx 30 feet with RN and with a walker, pt returned back to his room an room air sats 95% and hr 92. pt iris well. no resp distress noted.
--- NOTE | 2021-01-09 12:41 | PC.NURSE ---
pt ambulated with a walker and maintained 95% on room air, hr 90, emptied 1000 of yellow urine
== END 2021-01-09 15:07 | disposition home or self-care (01) ==
PROVIDERS: Emergency Provider Emergency Medicine
DX: J18.9 Pneumonia, unspecified organism (principal); M87.378 Other secondary osteonecrosis, left toe(s); R06.02 Shortness of breath; Z20.822 Contact with and (suspected) exposure to COVID-19; Z79.899 Other long term (current) drug therapy; Z87.891 Personal history of nicotine dependence
CPT/HCPCS: 0241U; 36415; 70491; 71045; 73660; 80048; 80076; 81001; 83605; 83880; 84443; 84484; 85025; 85610; 87040; 87651; 93005; 96361; 96365; 99284; J0696; Q9967

== ENCOUNTER 2021-05-15 09:34 | Inpatient (IN) | payer MEDICARE, OTHER, SELFPAY ==
[2021-05-15] VITALS (7 sets, daily range): BP systolic 141–158; BP diastolic 63–88; PULSE 57–83; RESP 16–29; TEMP 36.3–36.6; O2SAT 91–97; BMI 38.7
--- NOTE | ~2021-05-15 | XR_ITS ---
EXAMINATION: XR CHEST CLINICAL INFORMATION: Shortness of breath COMPARISON: Previous chest x-ray most recent December 2020 TECHNIQUE: Frontal view of the chest was obtained. FINDINGS: The cardiac and mediastinal contours are stable. The lung volumes are low. There are increased markings at both lung bases questionable for atelectasis or small infiltrates. There is blunting of both costophrenic angles questionable for small bilateral pleural effusions, left greater than right. There is no pneumothorax. There are degenerative changes of the spine. XR/XR chest 1V IMPRESSION: Low lung volumes. Question bilateral lower lobe atelectasis or small infiltrates and small bilateral pleural effusions.
--- NOTE | ~2021-05-15 | XR_ITS ---
EXAMINATION: XR FOOT, LEFT CLINICAL INFORMATION: To osteomyelitis COMPARISON: January 09, 2021 TECHNIQUE: AP, lateral, and oblique views of the left foot. FINDINGS: Patient status post previous second mid metatarsal amputation. There is again noted to be healing comminuted intra-articular fracture about the mid and distal aspects of the third proximal phalanx with soft tissue swelling. No acute fracture or dislocation is seen involving the fourth toe. No erosive change is seen. No focal region of osteopenia is noted.. There is healed fracture seen involving the distal diaphysis of the third metatarsal. There is an old fracture base of the first proximal phalanx which appears be intra-articular. There is erosion involving the first metatarsal head with some associated soft tissue swelling which was present on previous study. XR/XR foot LT 2V IMPRESSION: No specific findings to suggest acute osteomyelitis of the fourth toe. Previous findings as described above.
--- NOTE | ~2021-05-15 | US_ITS ---
EXAMINATION: US VENOUS ULTRASOUND WITH DOPPLER LOWER EXTREMITY, BILATERAL CLINICAL INFORMATION: Bilateral leg edema COMPARISON: November 22, 2020 TECHNIQUE: Ultrasound of the deep veins is performed from the hip to the calf with compression sonography and color and pulse Doppler assessment. Spectral analysis with color-flow imaging is performed. FINDINGS: Study somewhat limited due to body habitus and amount of soft tissue edema. RIGHT: There is normal venous compression and respiratory variation and augmented flow. The visualized common femoral vein, superficial femoral vein, profunda femoral vein, popliteal vein, and the trifurcation region shows no evidence of deep venous thrombosis. There is no significant popliteal fossa cyst. No popliteal artery aneurysm. LEFT: There is normal venous compression and respiratory variation and augmented flow. The visualized common femoral vein, superficial femoral vein, profunda femoral vein, popliteal vein, and the trifurcation region shows no evidence of deep venous thrombosis. There is no significant popliteal fossa cyst. No popliteal artery aneurysm. There is large amount of subcutaneous edema present. US/US venous duplex LE BI IMPRESSION: No acute DVT demonstrated in the bilateral lower extremity.
--- NOTE | 2021-05-15 10:56 | ECG_ITS ---
Test Reason : fall Blood Pressure : / mmHG Vent. Rate : 056 BPM Atrial Rate : 374 BPM P-R Int : 000 ms QRS Dur : 154 ms QT Int : 498 ms P-R-T Axes : 126 033 -44 degrees QTc Int : 480 ms Atrial flutter with variable A-V block Right bundle branch block T wave abnormality, consider inferior ischemia Abnormal ECG When compared with ECG of 09-JAN-2021 06:47, Atrial flutter has replaced Sinus rhythm Nonspecific T wave abnormality now evident in Lateral leads Referred By: Sindy Barry Electronically Signed By:SAM BAKER MD
--- NOTE | 2021-05-15 11:10 | PHA.MEDREC ---
Pharmacy Consult ? Medication Reconciliation Pharmacy has completed the medication reconciliation. Patient reported medication matched with claim history. Noe GarciaD
[2021-05-15 11:53] LABS: MANUAL DIFF FLAG NO
[2021-05-15 11:57] LABS: Basophils Percent Auto 0.4 % (0-2); Eosinophils Absolute Auto 0.1 X10*3/uL (0.0-0.4); Eosinophils Percent Auto 1.3 % (0-4); Hematocrit 40.8 % (42.0-52.0); Imm Gran Abs Auto 0.03 X10*3/uL (0.00-0.03); Imm Gran Pct Auto 0.4 % (0.0-0.4); Lymphocytes Absolute Auto 0.9 X10*3/uL (1.2-4.9); Lymphocytes Percent Auto 11.1 % (20-40); Mean Corpuscular HGB Conc 31.9 g/dl (31.0-36.0); Mean Corpuscular Hemoglobin 29.4 pg (27.0-33.0); Mean Corpuscular Volume 92.3 fL (80.0-98.0); Mean Platelet Volume 11.7 fL (9.4-12.4); Monocytes Absolute Auto 0.8 X10*3/uL (0.1-1.2); Monocytes Percent Auto 9.9 % (2-11); Neutrophils Percent Auto 76.9 % (45-73); Platelet Count 161 X10*3/uL (160-400); Red Blood Count 4.42 X10*6/uL (4.60-5.80); Red Cell Distribution Width 14.6 % (11.0-16.0); White Blood Count 7.8 X10*3/uL (4.8-10.8)
[2021-05-15 12:05] LABS: Lactic Acid 1.1 mmol/L (0.5-2.0)
--- NOTE | 2021-05-15 12:10 | ED_ITS ---
HPI - General Adult General Chief complaint: General Medical Stated complaint: WEAKNESS THROAT SWELLING Time Seen by Provider: 05/15/21 10:31 Source: patient and EMS Mode of arrival: EMS History of Present Illness HPI narrative: 76-year-old male with a past medical history of AFib on Eliquis, diabetes, lymphoma, HTN, hypothyroid, HLD, CKD, BIBA for increased generalized weakness, bilateral LE edema with acute on chronic weeping wounds. also reports acute on chronic SOB. patient is poor historian. Also reports sore throat/acute on chr onic thrush. Denies fever , chills, cough, chest pain, abdominal pain, nausea/vomiting Onset (ago): unknown Related Data Home Medications Medication Instructions Recorded Confirmed apixaban 5 mg tablet (Eliquis) 1 tab PO BID 11/22/20 05/15/21 Tumeric 1 tab PO DAILY 01/09/21 05/15/21 atorvastatin 10 mg tablet 1 tab PO DAILY 01/09/21 05/15/21 furosemide 40 mg tablet (Lasix) 40 mg PO DAILY 01/09/21 05/15/21 levothyroxine 50 mcg tablet 1 tab PO BEDTIME 01/09/21 05/15/21 (Euthyrox) metformin 1,000 mg tablet 1 tab PO DAILY 01/09/21 05/15/21 omega-3 fatty acids 2,000 mg PO DAILY 01/09/21 05/15/21 melatonin 3 mg tablet 3 mg PO BEDTIME PRN 05/15/21 05/15/21 metoprolol tartrate 50 mg tablet 50 mg PO BID 05/15/21 05/15/21 Allergies Allergy/AdvReac Type Severity Reaction Status Date / Time No Known Allergies Allergy Verified 01/09/21 06:34 Review of Systems Review of Systems: Constitutional: No Fever, No Chills, No Fatigue, No Malaise ENT/Mouth: No Ear Pain, No Nasal Congestion, No Hoarseness, No sore throat, No Rhinorrhea, No Swallowing Difficulty Eyes: No Eye Pain, No Swelling, No Redness Cardiovascular: No Chest Pain, No SOB, No Dyspnea on Exertion, No Orthopnea, + Edema, No Palpitations Respiratory: No Cough, No Sputum, No Wheezing, + Dyspnea Gastrointestinal: No Nausea, No Vomiting, No Diarrhea, No Constipation, No Abdominal pain Genitourinary: No Dysuria, No Urinary Frequency, No Hematuria, No Flank Pain, No Urinary Flow Changes Musculoskeletal: No joint pain, No Myalgias, No Joint Swelling Skin: + Skin Lesions, No rash Neuro: No Weakness, No Numbness, No Dizziness, No Headache Yes all other systems are reviewed and are negative [facility] Past Medical History Attestation statement: The following information was validated with the patient. Medical History Afib Bilateral inguinal hernia Diabetes H/O renal calculi Inguinal hernia Lymphoma Surgical History History of ear surgery History of excision of mass History of excision of pilonidal cyst History of throat surgery Family History Family History Mother Breast cancer Social History Social History Household Members: None Housing: Apartment Do you presently have visiting nurse or other home services: Yes Alcohol intake: never Patient Tobacco Use Status: Former Tobacco user Use of substances other than those prescribed or required for medical reasons: No Advance Directives: Yes Advance Directives on File: Yes Advance Directives Date on File: 11/22/20 service: No Physical Exam ED Vital Signs: Vital Signs - 24 hr 05/15/21 09:45 05/15/21 09:55 05/15/21 11:20 Temperature 97.8 F Pulse Rate 57 60 60 Respiratory Rate 29 H 22 H 16 Blood Pressure 141/68 H 143/64 H 146/74 H Pulse Oximetry 95 96 05/15/21 12:42 05/15/21 14:56 Temperature 97.6 F Pulse Rate 61 62 Respiratory Rate 24 H 16 Blood Pressure 158/82 H 149/63 H Pulse Oximetry 93 91 L BMI result Body Mass Index 38.7 Const General: cooperative Nutritional Appearance: obese Orientation/consciousness: patient oriented x3 Limitations: no limitations HENMT Head: Yes normal to inspection Ears: hearing grossly normal bilaterally General nose exam: Normal external nose present Face and sinus: Yes normal facial exam Eyes General: appearance normal, both eyes and all related structures EOM: EOMs intact bilaterally Neck Neck: Yes normal visual inspection and Yes no meningeal signs Resp Effort & Inspection: normal respiratory effort and no respiratory distress Auscultation: diminished lung sounds diffuse Cardio Rate: regular rate Heart sounds: S1 normal heart sound present and S2 normal heart sound present GI Inspection: Yes normal to inspection Palpation (GI): Soft to palpation, nontender, no guarding and not rigid General: Yes no CVA tenderness Back/Spine/Pelvis Back: no CVA tenderness Skin Rashes: no rashes Neuro General: patient oriented x3 and no meningeal signs Extrem Other: bilateral lower extremity edema with chronic venous stasis changes, LLE > RLE LLE with overlying cellulitis, warm, erythematous, +wounds with malodorous drainage/weeping. NV intact left foot 4th toe dark/black consistent with known osteo/necrosis Course Course Course Narrative: -1248-- no leukocytosis. H&H at patient's baseline. BUN/Creatinine at baseline. BNP 924, acute on chronically elevated. Troponin 22.4 >will obtain 3 hour repeat -1351-XR chest 1V IMPRESSION: Low lung volumes. Question bilateral lower lobe atelectasis or small infiltrates and small bilateral pleural effusions. >> 40 mg IV Lasix ordered XR foot LT 2V IMPRESSION: No specific findings to suggest acute osteomyelitis of the fourth toe. Previous findings as described above -1519-- O2 sat 91% on RA > improved to 96% on 2L NC US venous duplex LE BI IMPRESSION: No acute DVT demonstrated in the bilateral lower extremity. - plan to admit for further management Medical Decision Making MDM Narrative Medical decision making narrative: 76-year-old male with a past medical history of AFib on Eliquis, diabetes, lymphoma, HTN, hypothyroid, HLD, CKD, BIBA for increased generalized weakness, bilateral LE edema with acute on chronic weeping wounds. also reports acute on chronic SOB. on exam patient came in on nasal cannula, removed, maintaining saturations, lungs CTA, physical exam as above. Concern for CHF vs cellulitis vs acute on chronic osteomyelitis/necrosis of toe. rule out metabolic/infectious etiologies. Lower concern for ACS/PE plan: EKG, labs, UA, CXR, venous duplex ultrasound, lactic/blood cultures, empiric IV antibiotics, anticipated admission low concern for severe sepsis at this time Medical Records Medical records reviewed: Yes I reviewed the patient's medical records. Lab Data Lab results reviewed: Yes I reviewed the patient's lab results. Result diagrams: 05/15/21 11:43 05/15/21 11:43 Labs: Lab Results 05/15/21 05/15/21 05/15/21 Range/Units 11:43 11:43 11:43 WBC 7.8 (4.8-10.8) X10*3/uL RBC 4.42 L (4.60-5.80) X10*6/uL Hgb 13.0 L (14.0-18.0) g/dl Hct 40.8 L (42.0-52.0) % MCV 92.3 (80.0-98.0) fL MCH 29.4 (27.0-33.0) pg MCHC 31.9 (31.0-36.0) g/dl RDW 14.6 (11.0-16.0) % Plt Count 161 (160-400) X10*3/uL MPV 11.7 (9.4-12.4) fL Immature Gran % (Auto) 0.4 (0.0-0.4) % Neut % (Auto) 76.9 H (45-73) % Lymph % (Auto) 11.1 L (20-40) % [place] % (Auto) 9.9 (2-11) % Eos % (Auto) 1.3 (0-4) % Baso % (Auto) 0.4 (0-2) % Lymph # (Auto) 0.9 L (1.2-4.9) X10*3/uL [place] # (Auto) 0.8 (0.1-1.2) X10*3/uL Eos # (Auto) 0.1 (0.0-0.4) X10*3/uL Baso # (Auto) 0.0 (0.0-0.2) X10*3/uL Abs Immat Gran (auto) 0.03 (0.00-0.03) X10*3/uL Absolute Neuts (auto) 6.0 (2.0-8.3) x10*3/uL Absolute Nucleated RBC 0.000 (0.0-0.012) X10*3/uL Nucleated RBC % (auto) 0.0 (0.0-0.2) /100WBC Sodium 140 (135-145) mmol/L Potassium 4.8 (3.3-5.1) mmol/L Chloride 104 (96-108) mmol/L Carbon Dioxide 29 (22-29) mmol/L Anion Gap 12 (12-20) BUN 36 H (9-16) mg/dL Creatinine 1.42 H (0.5-1.4) mg/dL Estim Creat Clear Calc 65.1 Estimated GFR 48 Random Glucose 96 (60-115) mg/dL Lactic Acid 1.1 (0.5-2.0) mmol/L Calcium 8.8 (8.4-10.2) mg/dL Magnesium 2.1 (1.6-2.6) mg/dL Total Bilirubin 0.6 (0.0-1.0) mg/dL Direct Bilirubin 0.3 (0.0-0.5) mg/dL AST 21 (5-37) U/L ALT 9 (0-40) U/L Alkaline Phosphatase 75 (39-117) U/L Troponin I High Sens (<3.5-35.0) ng/L B-Natriuretic Peptide (<100) pg/mL Total Protein 8.3 H (6.5-8.0) g/dL Albumin 3.5 (3.5-5.0) g/dL Urine Color Urine Appearance Urine pH (5.0-8.0) Ur Specific [place] (1.005-1.025) Urine Protein (NEG-TRACE) MG/DL Urine Glucose (UA) (NEG) MG/DL Urine Ketones (NEG) MG/DL Urine Blood (NEG) Urine Nitrite (NEG) Ur Leukocyte Esterase (NEG) Urine RBC (0) /HPF Urine WBC (0-4) /HPF Ur Squamous Epith Cells /LPF Uric Acid Crystals /LPF Urine Bacteria /LPF COVID-19 ([facility]) (Negative) COVID-19 Clin Com 05/15/21 05/15/21 05/15/21 Range/Units 11:43 11:43 13:47 WBC (4.8-10.8) X10*3/uL RBC (4.60-5.80) X10*6/uL Hgb (14.0-18.0) g/dl Hct (42.0-52.0) % MCV (80.0-98.0) fL MCH (27.0-33.0) pg MCHC (31.0-36.0) g/dl RDW (11.0-16.0) % Plt Count (160-400) X10*3/uL MPV (9.4-12.4) fL Immature Gran % (Auto) (0.0-0.4) % Neut % (Auto) (45-73) % Lymph % (Auto) (20-40) % [place] % (Auto) (2-11) % Eos % (Auto) (0-4) % Baso % (Auto) (0-2) % Lymph # (Auto) (1.2-4.9) X10*3/uL [place] # (Auto) (0.1-1.2) X10*3/uL Eos # (Auto) (0.0-0.4) X10*3/uL Baso # (Auto) (0.0-0.2) X10*3/uL Abs Immat Gran (auto) (0.00-0.03) X10*3/uL Absolute Neuts (auto) (2.0-8.3) x10*3/uL Absolute Nucleated RBC (0.0-0.012) X10*3/uL Nucleated RBC % (auto) (0.0-0.2) /100WBC Sodium (135-145) mmol/L Potassium (3.3-5.1) mmol/L Chloride (96-108) mmol/L Carbon Dioxide (22-29) mmol/L Anion Gap (12-20) BUN (9-16) mg/dL Creatinine (0.5-1.4) mg/dL Estim Creat Clear Calc Estimated GFR Random Glucose (60-115) mg/dL Lactic Acid (0.5-2.0) mmol/L Calcium (8.4-10.2) mg/dL Magnesium (1.6-2.6) mg/dL Total Bilirubin (0.0-1.0) mg/dL Direct Bilirubin (0.0-0.5) mg/dL AST (5-37) U/L ALT (0-40) U/L Alkaline Phosphatase (39-117) U/L Troponin I High Sens 22.4 (<3.5-35.0) ng/L B-Natriuretic Peptide 924 H (<100) pg/mL Total Protein (6.5-8.0) g/dL Albumin (3.5-5.0) g/dL Urine Color YELLOW Urine Appearance CLEAR Urine pH 5.5 (5.0-8.0) Ur Specific [place] >= 1.030 H (1.005-1.025) Urine Protein 2+ H (NEG-TRACE) MG/DL Urine Glucose (UA) NEG (NEG) MG/DL Urine Ketones NEG (NEG) MG/DL Urine Blood 1+ H (NEG) Urine Nitrite NEG (NEG) Ur Leukocyte Esterase NEG (NEG) Urine RBC 1-4 (0) /HPF Urine WBC 1-4 (0-4) /HPF Ur Squamous Epith Cells NONE /LPF Uric Acid Crystals 1+ /LPF Urine Bacteria NONE /LPF COVID-19 ([facility]) Negative (Negative) COVID-19 Clin Com See Note ECG Data Attestation: I personally reviewed and interpreted this ECG as follows: Prior ECG tracings: available for review Interpretation: EKG a flutter with variable AV block. Right bundle branch block. Rate of 56. Nonspecific T-wave abnormality in lateral leads. QTC 480. No STEMI Discharge Plan Discharge Clinical Impression: CHF (congestive heart failure) Qualifiers: Heart failure type: unspecified Heart failure chronicity: acute Qualified Code(s): I50.9 - Heart failure, unspecified Cellulitis Qualifiers: Site of cellulitis: extremity Site of cellulitis of extremity: lower extremity Laterality: left Qualified Code(s): L03.116 - Cellulitis of left lower limb Patient Disposition: Admitted As Inpatient Prescriptions: No Action Eliquis 5 mg tablet 1 tab PO BID 0RF melatonin 3 mg Tablet 3 mg PO BEDTIME PRN (Reason: Insomnia) 0RF metoprolol tartrate 50 mg tablet 50 mg PO BID 0RF atorvastatin 10 mg tablet 1 tab PO DAILY 0RF levothyroxine [Euthyrox] 50 mcg tablet 1 tab PO BEDTIME 0RF metformin 1,000 mg tablet 1 tab PO DAILY 0RF furosemide [Lasix] 40 mg tablet 40 mg PO DAILY 0RF [place] 3 Capsule 2,000 mg PO DAILY 0RF Tumeric 1 tab PO DAILY 0RF
[2021-05-15 12:15] LABS: COVID-19 Test Negative (Negative)
[2021-05-15 12:19] LABS: B Type Natriuretic Peptide 924 pg/mL (<100); Troponin-I High Sensitivity 22.4 ng/L (<3.5-35.0)
[2021-05-15 12:21] LABS: Alanine Aminotransferase 9 U/L (0-40); Albumin Level 3.5 g/dL (3.5-5.0); Alkaline Phosphatase 75 U/L (39-117); Anion Gap 12 (12-20); Aspartate Amino Transferase 21 U/L (5-37); Bilirubin Direct 0.3 mg/dL (0.0-0.5); Bilirubin Total 0.6 mg/dL (0.0-1.0); Blood Urea Nitrogen 36 mg/dL (9-16); Calcium 8.8 mg/dL (8.4-10.2); Carbon Dioxide 29 mmol/L (22-29); Chloride 104 mmol/L (96-108); Creatinine Clr Calc Pharmacy 65.1; Estimated Glomerular Filt Rate 48; Glucose Random 96 mg/dL (60-115); Magnesium 2.1 mg/dL (1.6-2.6); Potassium 4.8 mmol/L (3.3-5.1); Sodium 140 mmol/L (135-145); Total Protein 8.3 g/dL (6.5-8.0)
[2021-05-15] MEDS: Piperacillin Sodium/Tazobactam 3.375 GM in 0.9 % Sodium Chloride 50 ML IV (12:35)
[2021-05-15 13:59] LABS: Appearance Urine CLEAR; Color Urine YELLOW; Glucose Urine UA NEG (NEG); Leukocyte Esterase Urine NEG (NEG); Nitrite Urine NEG (NEG); PH 5.5 (5.0-8.0); Specific Gravity - Urine >= 1.030 (1.005-1.025); UACC Culture Trigger NO; Urine Blood 1+ (NEG); Urine Ketones NEG (NEG); Urine Protein 2+ MG/DL (NEG-TRACE)
[2021-05-15 14:25] LABS: Uric Acid Crystals Urine 1+ /LPF
[2021-05-15] MEDS: Furosemide 40 MG/4 ML VIAL IVPUSH (14:57)
--- NOTE | 2021-05-15 15:59 | P.HPHOSP_ITS ---
History of Present Illness Date of Service: 05/15/21 Chief Complaint: Weakness 76-year-old male with a past medical history of AFib on Eliquis, diabetes, lymphoma, HTN, hypothyroid, HLD, CKD, BIBA, chronic diastolic heart failure. He present with complaint of generalized weakness, bilateral LE edema with an some redness of leg superimposed on chronic venous stasis. H is not reporting shortness of breath but has some leg edema.. also reports acute on chronic SOB. patient is poor historian. Also reports sore throat/acute on chronic thrush. Denies fever , chills, cough, chest pain, abdominal pain, nausea/vomiting. Negative covid Review of Systems Review of Systems: Gen: no fever Resp: no sob, no cough CV: no chest, + LOMBARDO, + leg edema GI: No n/v, no abd pain Neuro: weakness Yes all other systems are reviewed and are negative [facility] Medical History Afib Bilateral inguinal hernia Diabetes H/O renal calculi Inguinal hernia Lymphoma Family History Mother Breast cancer Surgical History History of ear surgery History of excision of mass History of excision of pilonidal cyst History of throat surgery Social History Household Members: None Housing: House Do you presently have visiting nurse or other home services: Yes Alcohol intake: never Patient Tobacco Use Status: Former Tobacco user Use of substances other than those prescribed or required for medical reasons: No Currently Displaying Signs/Symptoms of Drug Intoxication Withdrawal: No Have you been hit, kicked, punched, or otherwise hurt by someone within the past year? If so, by whom?: No Do you feel safe in your current relationship?: No Current Relationship Is there a partner from a previous relationship who is making you feel unsafe now?: No Are you made to feel afraid or neglected: No Advance Directives: Yes Advance Directives on File: Yes Advance Directives Date on File: 11/22/20 Do you have thoughts of harming others: None Recently lost weight without trying: No Nutrition Risks: No Nutritional Risk service: No Current occupational status: retired Meds Allergies Allergy/AdvReac Type Severity Reaction Status Date / Time No Known Allergies Allergy Verified 01/09/21 06:34 Active Medications: Current Medications Pharmacy Consult (Consult Rx Perform Med Rec) 1 each MISCELLANE ONCE PRN PRN Reason: Consult order Home Medications Medication Instructions Recorded Confirmed Last Taken Type apixaban 5 mg tablet (Eliquis) 1 tab PO BID 11/22/20 05/15/21 05/15/21 History Tumeric 1 tab PO DAILY 01/09/21 05/15/21 05/15/21 History atorvastatin 10 mg tablet 1 tab PO DAILY 01/09/21 05/15/21 05/15/21 History furosemide 40 mg tablet (Lasix) 40 mg PO DAILY 01/09/21 05/15/21 05/15/21 History levothyroxine 50 mcg tablet 1 tab PO BEDTIME 01/09/21 05/15/21 05/14/21 History (Euthyrox) metformin 1,000 mg tablet 1 tab PO DAILY 01/09/21 05/15/21 05/15/21 History omega-3 fatty acids 2,000 mg PO DAILY 01/09/21 05/15/21 05/15/21 History melatonin 3 mg tablet 3 mg PO BEDTIME PRN 05/15/21 05/15/21 05/14/21 History metoprolol tartrate 50 mg tablet 50 mg PO BID 05/15/21 05/15/21 05/15/21 History Physical Exam Vital Signs and Narrative: Vital Signs: Last Vital Signs Temp 97.4 F 05/15/21 15:34 Pulse 66 05/15/21 15:34 Resp 18 05/15/21 15:34 BP 154/76 H 05/15/21 15:34 Pulse Ox 97 05/15/21 15:34 Oxygen Flow Rate 2 05/15/21 09:55 BMI result Body Mass Index 38.7 Results Labs CBC and Chem 7: 05/15/21 11:43 05/16/21 05:21 Labs: Laboratory Results - last 24 hr 05/15/21 05/15/21 05/15/21 11:43 11:43 11:43 MCV 92.3 MCH 29.4 MCHC 31.9 RDW 14.6 Plt Count 161 MPV 11.7 Immature Gran % (Auto) 0.4 Neut % (Auto) 76.9 H Lymph % (Auto) 11.1 L [place] % (Auto) 9.9 Eos % (Auto) 1.3 Baso % (Auto) 0.4 Lymph # (Auto) 0.9 L [place] # (Auto) 0.8 Eos # (Auto) 0.1 Baso # (Auto) 0.0 Abs Immat Gran (auto) 0.03 Absolute Neuts (auto) 6.0 Absolute Nucleated RBC 0.000 Nucleated RBC % (auto) 0.0 Anion Gap 12 Creatinine 1.42 H Estim Creat Clear Calc 65.1 Estimated GFR 48 Random Glucose 96 Lactic Acid 1.1 Calcium 8.8 Magnesium 2.1 Total Bilirubin 0.6 Direct Bilirubin 0.3 AST 21 ALT 9 Alkaline Phosphatase 75 B-Natriuretic Peptide Total Protein 8.3 H Albumin 3.5 Urine Color Urine Appearance Urine pH Ur Specific [place] Urine Protein Urine Glucose (UA) Urine Ketones Urine Blood Urine Nitrite Ur Leukocyte Esterase Urine RBC Urine WBC Ur Squamous Epith Cells Uric Acid Crystals Urine Bacteria COVID-19 ([facility]) COVID-19 Delphix Com 05/15/21 05/15/21 05/15/21 11:43 11:43 13:47 MCV MCH MCHC RDW Plt Count MPV Immature Gran % (Auto) Neut % (Auto) Lymph % (Auto) [place] % (Auto) Eos % (Auto) Baso % (Auto) Lymph # (Auto) [place] # (Auto) Eos # (Auto) Baso # (Auto) Abs Immat Gran (auto) Absolute Neuts (auto) Absolute Nucleated RBC Nucleated RBC % (auto) Anion Gap Creatinine Estim Creat Clear Calc Estimated GFR Random Glucose Lactic Acid Calcium Magnesium Total Bilirubin Direct Bilirubin AST ALT Alkaline Phosphatase B-Natriuretic Peptide 924 H Total Protein Albumin Urine Color YELLOW Urine Appearance CLEAR Urine pH 5.5 Ur Specific [place] >= 1.030 H Urine Protein 2+ H Urine Glucose (UA) NEG Urine Ketones NEG Urine Blood 1+ H Urine Nitrite NEG Ur Leukocyte Esterase NEG Urine RBC 1-4 Urine WBC 1-4 Ur Squamous Epith Cells NONE Uric Acid Crystals 1+ Urine Bacteria NONE COVID-19 ([facility]) Negative COVID-19 Delphix Com See Note Imaging Radiologist's Impressions: Impressions Chest X-Ray 05/15/21 12:05 IMPRESSION: Low lung volumes. Question bilateral lower lobe atelectasis or small infiltrates and small bilateral pleural effusions. Foot X-Ray 05/15/21 13:10 IMPRESSION: No specific findings to suggest acute osteomyelitis of the fourth toe. Previous findings as described above. Venous Duplex 05/15/21 13:50 IMPRESSION: No acute DVT demonstrated in the bilateral lower extremity. Assessment and Plan (1) Cellulitis: Qualifiers: Laterality: left Site of cellulitis: extremity Site of cellulitis of extremity: lower extremity Qualified Code(s): L03.116 - Cellulitis of left lower limb Status: Acute (2) Leg edema, left: Status: Acute Plan 76 years old male with PMH of atrial fibrillation on eliquis, HTN, hypothyroidism, diabetes, CKD, chronic diastolic heart failure among others who presented to the hospital with worsening left lower extremity swelling, pain and erythema and mild increased in BNP Chronic venous stasis with posible superimposed cellulitis. -Treat with Doxyc -Antifungal cream Leg swelling, BNP is within baseline and CXR not overally suggestive of heart failure, thre is no hypoxia. Given IV Lasix in the ED, continue home lasix dose Diabetes type 2 hold metformin SSI Diabetic diet CKD3--stable obesity--weigt loss advised AFib continue Eliquis and metoprolol DVT PPX Eliquis Quality Stroke Does the patient have a stroke diagnosis?: No VTE Prior VTE?: No VTE Risk Level:: Medical - moderate - high VTE Device Contraindication: Treatment Not Tolerated VTE Drug Contraindication: N/A - Med Ordered
[2021-05-15 16:14] LABS: Troponin-I High Sensitivity 22.3 ng/L (<3.5-35.0)
--- NOTE | 2021-05-15 18:45 | PC.NURSE ---
PATIENT UNABLE TO AMBULATE AT THIS TIME ,PATIENT HAD TUNA SANDWICH AND JUICE FOR DINNER .
[2021-05-15] MEDS: Levothyroxine Sodium 50 MCG TABLET PO (21:23)
[2021-05-15] MEDS: Apixaban 5 MG TABLET PO (21:23)
[2021-05-15] MEDS: Melatonin 3 MG TABLET 6 MG PO (21:23)
[2021-05-15] MEDS: 0.9 % Sodium Chloride Flush 3 ML SYRINGE IVFLUSH (21:23)
[2021-05-15] MEDS: Metoprolol Tartrate 50 MG TABLET PO (21:23)
[2021-05-16] VITALS (8 sets, daily range): BP systolic 141–154; BP diastolic 61–75; PULSE 55–59; RESP 16–18; TEMP 36–37; O2SAT 94–99
[2021-05-16 05:57] LABS: Glucose, Whole Blood 111 mg/dL (60-115)
[2021-05-16 06:01] LABS: Anion Gap 13 (12-20); Blood Urea Nitrogen 29 mg/dL (9-16); Calcium 8.6 mg/dL (8.4-10.2); Carbon Dioxide 32 mmol/L (22-29); Chloride 102 mmol/L (96-108); Creatinine Clr Calc Pharmacy 69.5; Estimated Glomerular Filt Rate 52; Glucose Random 118 mg/dL (60-115); Potassium 4.5 mmol/L (3.3-5.1); Sodium 142 mmol/L (135-145)
[2021-05-16] MEDS: Furosemide 40 MG TABLET PO (08:58)
[2021-05-16] MEDS: metFORMIN HCl 1,000 MG TABLET 1000 MG PO (08:59)
[2021-05-16] MEDS: Atorvastatin Calcium 10 MG TABLET PO (08:59)
[2021-05-16] MEDS: 0.9 % Sodium Chloride Flush 3 ML SYRINGE IVFLUSH ×3 (09:00→20:08)
[2021-05-16] MEDS: Apixaban 5 MG TABLET PO ×2 (09:00→20:08)
--- NOTE | 2021-05-16 14:14 | MHC.CM.PN ---
PATIENT LIVES ALONE. HE SUES A CANE, WALKER, AND A WHEEL CHAIR. HE ALSO HAS [facility] IN THE HOME. AGENCY PROVIDES MEALS ON WHEELS M-F AND HOME CLEANING SEVICES TWICE PER WEEK. IF VNA IS NEEDED, THEY HAVE SUPPLIED VISITS WELL. COPY OF HCP REQUESTED. PATIENT REPORTS THAT IT IS HIS SON, CAITLIN LLANES. HE GIVES PERMISSION FOR CASE MANAGEMENT TO SPEAK WITH SON IF HE CALLS. PATIENT REPORTS BEING COVID VACCINATED WITH PFIZER SERIES, INCLUDING BOOSTER HE IS UNABLE TO RECALL THE DATES BUT STATES THAT THEY WERE DONE AT [facility] IN [facility]. IMM 05/16 IN CHART
[2021-05-16] MEDS: Metoprolol Tartrate 50 MG TABLET PO (20:08)
[2021-05-16] MEDS: Levothyroxine Sodium 50 MCG TABLET PO (20:08)
[2021-05-17] VITALS (9 sets, daily range): BP systolic 119–168; BP diastolic 58–70; PULSE 54–72; RESP 16–18; TEMP 36.1–36.9; O2SAT 96–98
[2021-05-17] MEDS: 0.9 % Sodium Chloride Flush 3 ML SYRINGE IVFLUSH ×3 (06:59→19:21)
--- NOTE | 2021-05-17 08:37 | P.PNIM_ITS ---
Subjective Subjective Date of Service: 05/17/21 Interval History: Follow-up on CHF, cellulitis of the leg. He feels better, a generally weak. no shortness of breath Review of Systems Gen: no fever Resp: no sob, no cough CV: no chest, OLMBARDO, + leg edema GI: No n/v, no abd pain Neuro: weakness Physical Exam Vital Signs: Vital Signs: Last Vital Signs Temp 96.9 F 05/17/21 07:44 Pulse 60 05/17/21 07:44 Resp 18 05/17/21 07:44 BP 136/69 05/17/21 07:44 Pulse Ox 98 05/17/21 07:44 Oxygen Flow Rate 2 05/15/21 09:55 BMI result Body Mass Index 38.7 Const: Other: General: AO X 3, no acute distress Resp: CTA bilateral CVS: S1,S2,RRR GI: +BS, NT, no distention Skin: bilateral chronic venous stasis Neuro: motor grossly intact Psych: appropriate affect Objective Data Active Medications Acetaminophen (Acetaminophen 325 Mg Tablet) 650 mg PO Q6H PRN PRN Reason: Pain, Mild (Pain Scale 1-3) Apixaban (Apixaban 5 Mg Tablet) 5 mg PO BID [facility] Last Admin: 05/16/21 20:08 Dose: 5 mg Documented by: MINA Atorvastatin Calcium (Atorvastatin Calcium 10 Mg Tablet) 10 mg PO DAILY [facility] Last Admin: 05/16/21 08:59 Dose: 10 mg Documented by: LEONARD Doxycycline Hyclate (Doxycycline Hyclate 100 Mg Tablet) 100 mg PO Q12H [facility] Last Admin: 05/17/21 07:00 Dose: 100 mg Documented by: LEONARD Furosemide (Furosemide 40 Mg Tablet) 40 mg PO DAILY [facility]; Protocol Last Admin: 05/16/21 08:58 Dose: 40 mg Documented by: LEONARD Levothyroxine Sodium (Levothyroxine Sodium 50 Mcg Tablet) 50 mcg PO BEDTIME [facility] Last Admin: 05/16/21 20:08 Dose: 50 mcg Documented by: MINA Melatonin (Melatonin 3 Mg Tablet) 6 mg PO BEDTIME PRN PRN Reason: Insomnia Last Admin: 05/15/21 21:23 Dose: 6 mg Documented by: MINA Metformin HCl (Metformin Hcl 1,000 Mg Tablet) 1,000 mg PO DAILY [facility] Last Admin: 05/16/21 08:59 Dose: 1,000 mg Documented by: LEONARD Metoprolol Tartrate (Metoprolol Tartrate 50 Mg Tablet) 50 mg PO BID [facility]; Protocol Last Admin: 05/16/21 20:08 Dose: 50 mg Documented by: MINA Pharmacy Consult (Consult Rx Perform Med Rec) 1 each MISCELLANE ONCE PRN PRN Reason: Consult order Sodium Chloride (0.9 % Sodium Chloride Flush 3 Ml Syringe) 3 ml IVFLUSH QSHIFT [facility] Last Admin: 05/17/21 06:59 Dose: 3 ml Documented by: LEONARD Labs CBC & Chem 7: 05/15/21 11:43 05/16/21 05:21 Microbiology Microbiology Results: Microbiology 05/15/21 11:43 Blood Culture - Preliminary Blood - Venous No growth after 24 hours. 05/15/21 11:33 Blood Culture - Preliminary Blood - Venous No growth after 24 hours. Assessment and Plan (1) Leg edema, left: Status: Acute (2) Cellulitis: Status: Acute (3) CHF (congestive heart failure): Status: Acute Plan 76 years old male with PMH of atrial fibrillation on eliquis, HTN, hypothyroidism, diabetes, CKD, chronic diastolic heart failure among others who presented to the hospital with worsening left lower extremity swelling, pain and erythema and mild increased in BNP Chronic venous stasis with posible superimposed cellulitis. -Treat with Doxyc for 7 days -Antifungal cream to leg Leg swelling, BNP is within baseline and CXR not overally suggestive of heart failure, thre is no hypoxia. Given IV Lasix in the ED, continue home lasix dose Diabetes type 2 hold metformin SSI Diabetic diettant. CKD3--stable obesity--weigt loss advised AFib continue Eliquis and metoprolol Generalized weakness-- physical therapy evaluation and possible rehab placement, daughter wants the patient to go to short-term rehab but he is relu DVT PPX Eliquis Quality Stroke Does the patient have a stroke diagnosis?: No VTE Prior VTE?: No VTE Risk Level:: Medical - moderate - high VTE Device Contraindication: Treatment Not Tolerated VTE Drug Contraindication: N/A - Med Ordered
[2021-05-17] MEDS: metFORMIN HCl 1,000 MG TABLET 1000 MG PO (09:05)
[2021-05-17] MEDS: Apixaban 5 MG TABLET PO ×2 (09:06→19:21)
[2021-05-17] MEDS: Atorvastatin Calcium 10 MG TABLET PO (09:06)
[2021-05-17] MEDS: Furosemide 40 MG TABLET PO (09:06)
[2021-05-17] MEDS: Levothyroxine Sodium 50 MCG TABLET PO (19:21)
[2021-05-17] MEDS: Metoprolol Tartrate 50 MG TABLET PO (19:21)
[2021-05-17] MEDS: Melatonin 3 MG TABLET 6 MG PO (21:08)
[2021-05-18] VITALS (7 sets, daily range): BP systolic 110–139; BP diastolic 54–95; PULSE 56–73; RESP 16–20; TEMP 36.3–36.8; O2SAT 93–97
[2021-05-18] MEDS: Furosemide 40 MG TABLET PO (08:43)
[2021-05-18] MEDS: 0.9 % Sodium Chloride Flush 3 ML SYRINGE IVFLUSH ×3 (08:43→23:41)
[2021-05-18] MEDS: Atorvastatin Calcium 10 MG TABLET PO (08:43)
[2021-05-18] MEDS: Apixaban 5 MG TABLET PO ×2 (08:43→20:29)
[2021-05-18] MEDS: metFORMIN HCl 1,000 MG TABLET 1000 MG PO (08:43)
--- NOTE | 2021-05-18 10:05 | HO.PM.IMPN ---
Subjective Subjective Date of Service: 05/18/21 Interval History: Follow-up on CHF, cellulitis of the leg. He feels better, a generally weak. no shortness of breath and wants to go home Review of Systems Gen: no fever Resp: no sob, no cough CV: no chest, LOMBARDO, + leg edema GI: No n/v, no abd pain Neuro: weakness Physical Exam Vital Signs: Vital Signs: Last Vital Signs Temp 97.3 F 05/18/21 07:18 Pulse 58 05/18/21 07:18 Resp 18 05/18/21 07:18 BP 119/67 05/18/21 07:18 Pulse Ox 97 05/18/21 07:18 Oxygen Flow Rate 2 05/15/21 09:55 BMI result Body Mass Index 38.7 Const: Other: General: AO X 3, no acute distress Resp: CTA bilateral CVS: S1,S2,RRR GI: +BS, NT, no distention Skin: bilateral chronic venous stasis Neuro: motor grossly intact Psych: appropriate affect Objective Data Active Medications Acetaminophen (Acetaminophen 325 Mg Tablet) 650 mg PO Q6H PRN PRN Reason: Pain, Mild (Pain Scale 1-3) Apixaban (Apixaban 5 Mg Tablet) 5 mg PO BID [facility] Last Admin: 05/18/21 08:43 Dose: 5 mg Documented by: CORRIE Atorvastatin Calcium (Atorvastatin Calcium 10 Mg Tablet) 10 mg PO DAILY [facility] Last Admin: 05/18/21 08:43 Dose: 10 mg Documented by: CORRIE Doxycycline Hyclate (Doxycycline Hyclate 100 Mg Tablet) 100 mg PO Q12H [facility] Last Admin: 05/18/21 08:43 Dose: 100 mg Documented by: CORRIE Furosemide (Furosemide 40 Mg Tablet) 40 mg PO DAILY [facility]; Protocol Last Admin: 05/18/21 08:43 Dose: 40 mg Documented by: CORRIE Levothyroxine Sodium (Levothyroxine Sodium 50 Mcg Tablet) 50 mcg PO BEDTIME [facility] Last Admin: 05/17/21 19:21 Dose: 50 mcg Documented by: ROSA Melatonin (Melatonin 3 Mg Tablet) 6 mg PO BEDTIME PRN PRN Reason: Insomnia Last Admin: 05/17/21 21:08 Dose: 6 mg Documented by: ROSA Metformin HCl (Metformin Hcl 1,000 Mg Tablet) 1,000 mg PO DAILY [facility] Last Admin: 05/18/21 08:43 Dose: 1,000 mg Documented by: CORRIE Metoprolol Tartrate (Metoprolol Tartrate 50 Mg Tablet) 50 mg PO BID [facility]; Protocol Last Admin: 05/18/21 08:47 Dose: Not Given Documented by: CORRIE Non-Admin Reason: Decreased Heart Rate Pharmacy Consult (Consult Rx Perform Med Rec) 1 each MISCELLANE ONCE PRN PRN Reason: Consult order Sodium Chloride (0.9 % Sodium Chloride Flush 3 Ml Syringe) 3 ml IVFLUSH QSHIFT [facility] Last Admin: 05/18/21 08:43 Dose: 3 ml Documented by: CORRIE Labs CBC & Chem 7: 05/15/21 11:43 05/16/21 05:21 Microbiology Microbiology Results: Microbiology 05/15/21 11:43 Blood Culture - Preliminary Blood - Venous No growth after 48 hours. 05/15/21 11:33 Blood Culture - Preliminary Blood - Venous No growth after 48 hours. Assessment and Plan (1) Leg edema, left: Status: Acute (2) Cellulitis: Status: Acute (3) CHF (congestive heart failure): Status: Acute Plan 76 years old male with PMH of atrial fibrillation on eliquis, HTN, hypothyroidism, diabetes, CKD, chronic diastolic heart failure among others who presented to the hospital with worsening left lower extremity swelling, pain and erythema and mild increased in BNP Chronic venous stasis with posible superimposed cellulitis. -Treat with Doxyc for 7 days -Antifungal cream to leg Leg swelling is better, BNP is within baseline and CXR not overally suggestive of heart failure, thre is no hypoxia. Given IV Lasix in the ED, continue home lasix dose Diabetes type 2 hold metformin SSI Diabetic diettant. CKD3--stable obesity--weigt loss advised AFib continue Eliquis and metoprolol Generalized weakness-- physical therapy evaluation and possible rehab placement, daughter wants the patient to go to short-term rehab but he is relu DVT PPX Eliquis Quality Stroke Does the patient have a stroke diagnosis?: No VTE Prior VTE?: No VTE Risk Level:: Medical - moderate - high VTE Device Contraindication: Treatment Not Tolerated VTE Drug Contraindication: N/A - Med Ordered
[2021-05-18] MEDS: Levothyroxine Sodium 50 MCG TABLET PO (20:29)
[2021-05-18] MEDS: Melatonin 3 MG TABLET 6 MG PO (20:29)
[2021-05-18] MEDS: Metoprolol Tartrate 50 MG TABLET PO (20:29)
--- NOTE | 2021-05-18 22:27 | PC.NURSE ---
PAt 2210 patient found on his knees by RAMIREZ White after she responded to chair alarm I patient was able to stand up and transferred back to bed with 2 assist,assessed v/s BP 110/72 Pulse 69 R-20 Sat 96% on 2 L of oxygen,patient reports his right knee is sore but denied need for pain med,Dr. Lebron notified,Nursing Private Duty Nurse notified E will monitor patient closely ,patient refused Telesiter earlier but agreed to have it in place now,T staff was notified of patient fall and high risk of falling,post fall huddle done,all staff made aware .
[2021-05-18] MEDS: Acetaminophen 325 MG TABLET 650 MG PO (23:40)
[2021-05-19 03:52] VITALS: BP 119/68; PULSE 67; RESP 17; TEMP 36.3; O2SAT 98
[2021-05-19 07:25] VITALS: BP 135/71; PULSE 61; RESP 20; TEMP 36.1; O2SAT 96
[2021-05-19] MEDS: Apixaban 5 MG TABLET PO (08:51)
[2021-05-19] MEDS: Furosemide 40 MG TABLET PO (08:51)
[2021-05-19] MEDS: Atorvastatin Calcium 10 MG TABLET PO (08:51)
[2021-05-19] MEDS: metFORMIN HCl 1,000 MG TABLET 1000 MG PO (08:51)
[2021-05-19] MEDS: Metoprolol Tartrate 50 MG TABLET PO (08:52)
[2021-05-19] MEDS: 0.9 % Sodium Chloride Flush 3 ML SYRINGE IVFLUSH (08:52)
--- NOTE | 2021-05-19 09:00 | HO.PM.IMPN ---
Subjective Subjective Date of Service: 05/19/21 Interval History: Follow-up on CHF, cellulitis of the leg. He feels better, generally weak. no shortness of breath and wants to go home and doesn't want rehab Review of Systems Gen: no fever Resp: no sob, no cough CV: no chest, LOMBARDO, + leg edema GI: No n/v, no abd pain Neuro: weakness Physical Exam Vital Signs: Vital Signs: Last Vital Signs Temp 97.0 F 05/19/21 07:25 Pulse 61 05/19/21 07:25 Resp 20 05/19/21 07:25 BP 135/71 05/19/21 07:25 Pulse Ox 96 05/19/21 07:25 Oxygen Flow Rate 2 05/15/21 09:55 BMI result Body Mass Index 38.7 Const: Other: General: AO X 3, no acute distress Resp: CTA bilateral CVS: S1,S2,RRR GI: +BS, NT, no distention Skin: bilateral chronic venous stasis Neuro: motor grossly intact Psych: appropriate affect Objective Data Active Medications Acetaminophen (Acetaminophen 325 Mg Tablet) 650 mg PO Q6H PRN PRN Reason: Pain, Mild (Pain Scale 1-3) Last Admin: 05/18/21 23:40 Dose: 650 mg Documented by: CASTILKathy Apixaban (Apixaban 5 Mg Tablet) 5 mg PO BID [facility] Last Admin: 05/19/21 08:51 Dose: 5 mg Documented by: RAMA Atorvastatin Calcium (Atorvastatin Calcium 10 Mg Tablet) 10 mg PO DAILY [facility] Last Admin: 05/19/21 08:51 Dose: 10 mg Documented by: RAMA Doxycycline Hyclate (Doxycycline Hyclate 100 Mg Tablet) 100 mg PO Q12H [facility] Last Admin: 05/19/21 08:51 Dose: 100 mg Documented by: RAMA Furosemide (Furosemide 40 Mg Tablet) 40 mg PO DAILY [facility]; Protocol Last Admin: 05/19/21 08:51 Dose: 40 mg Documented by: RAMA Levothyroxine Sodium (Levothyroxine Sodium 50 Mcg Tablet) 50 mcg PO BEDTIME [facility] Last Admin: 05/18/21 20:29 Dose: 50 mcg Documented by: ISABELLA Melatonin (Melatonin 3 Mg Tablet) 6 mg PO BEDTIME PRN PRN Reason: Insomnia Last Admin: 05/18/21 20:29 Dose: 6 mg Documented by: ISABELLA Metformin HCl (Metformin Hcl 1,000 Mg Tablet) 1,000 mg PO DAILY [facility] Last Admin: 05/19/21 08:51 Dose: 1,000 mg Documented by: RAMA Metoprolol Tartrate (Metoprolol Tartrate 50 Mg Tablet) 50 mg PO BID [facility]; Protocol Last Admin: 05/19/21 08:52 Dose: 50 mg Documented by: RAMA Pharmacy Consult (Consult Rx Perform Med Rec) 1 each MISCELLANE ONCE PRN PRN Reason: Consult order Sodium Chloride (0.9 % Sodium Chloride Flush 3 Ml Syringe) 3 ml IVFLUSH QSHIFT [facility] Last Admin: 05/19/21 08:52 Dose: 3 ml Documented by: RAMA Labs CBC & Chem 7: 05/15/21 11:43 05/16/21 05:21 Assessment and Plan (1) Leg edema, left: Status: Acute (2) Cellulitis: Status: Acute (3) CHF (congestive heart failure): Status: Acute Plan 76 years old male with PMH of atrial fibrillation on eliquis, HTN, hypothyroidism, diabetes, CKD, chronic diastolic heart failure among others who presented to the hospital with worsening left lower extremity swelling, pain and erythema and mild increased in BNP Chronic venous stasis with posible superimposed cellulitis. -Treat with Doxyc for 7 days -Antifungal cream to leg Leg swelling is better, BNP is within baseline and CXR not overally suggestive of heart failure, thre is no hypoxia. Given IV Lasix in the ED, continue home lasix dose Diabetes type 2 hold metformin SSI Diabetic diettant. CKD3--stable obesity--weigt loss advised AFib continue Eliquis and metoprolol Generalized weakness-- physical therapy evaluation and possible rehab placement, daughter wants the patient to go to short-term rehab but he is relu DVT PPX Eliquis Quality Stroke Does the patient have a stroke diagnosis?: No VTE Prior VTE?: No VTE Risk Level:: Medical - moderate - high VTE Device Contraindication: Treatment Not Tolerated VTE Drug Contraindication: N/A - Med Ordered
[2021-05-19 09:02] VITALS: BP 135/71; PULSE 61; O2SAT 96
--- NOTE | 2021-05-19 09:04 | PM.DS ---
DS: Providers Provider Date of Service: 05/19/21 Date of admission: 05/15/21 16:32 Primary care physician: Carlos Jimenez MD, DO DS: Diagnosis Discharge Diagnosis (1) Leg edema, left: Status: Resolved (2) Cellulitis: Status: Acute (3) CHF (congestive heart failure): DS: Summary Hospital Course Hospital Course: Chief Complaint: Weakness 76-year-old male with a past medical history of AFib on Eliquis, diabetes, lymphoma, HTN, hypothyroid, HLD, CKD, BIBA, chronic diastolic heart failure. He present with complaint of generalized weakness, bilateral LE edema with an some redness of leg superimposed on chronic venous stasis. H is not reporting shortness of breath but has some leg edema.. also reports acute on chronic SOB. patient is poor historian. Also reports sore throat/acute on chronic thrush. Denies fever , chills, cough, chest pain, abdominal pain, nausea/vomiting. Negative covid. Hospital course: Chronic venous stasis with posible superimposed cellulitis. Being treated with Doxycyline for total of 7 days and topical antifungal cream Leg swelling--probably had mild heart failure on admission got IV Lasix in the ED and continued on usual home dose of Lasix, presently with no s/sx of heart failure Diabetes type 2--To resume home regimen CKD3--stable Obesity--weigt loss advised, aware of associated health risks and benefit AFib--to continue rate control with Metoprolol and anticoagulation with Eliquis Time Spent with Patient Time attestation: Total time spent providing and/or coordinating discharge services: Discharge coordination time: Greater than 30 minutes Quality: Stroke Does the patient have a stroke diagnosis?: No Physical Exam Vital Signs: Vital Signs: Last Vital Signs Temp 97.0 F 05/19/21 07:25 Pulse 61 05/19/21 07:25 Resp 20 05/19/21 07:25 BP 135/71 05/19/21 07:25 Pulse Ox 96 05/19/21 07:25 Oxygen Flow Rate 2 05/15/21 09:55 BMI result Body Mass Index 38.7 DS: Data Data Completed and Pending Labs on day of discharge: Preliminary micro results at discharge 05/15/21 11:43 Blood Culture - Preliminary Blood - Venous No growth after 48 hours. 05/15/21 11:33 Blood Culture - Preliminary Blood - Venous No growth after 48 hours. Discharge Plan Discharge Anticipated Discharge Date/Time: 05/19/21 13:35 Patient Disposition: Home Health Service Discharge Diagnosis: Cellulitis of the legs Referrals: Brittnee CONKLIN [Outside] - 1 Day (HOME PHYSICAL THERAPY AND HALF-WAY) Carlos Jimenez MD, DO [Primary Care Provider] - 1 Week Discharge Medications: New doxycycline hyclate 100 mg Tablet 100 mg PO Q12H Qty: 10 0RF Continued Eliquis 5 mg tablet 1 tab PO BID 0RF melatonin 3 mg Tablet 3 mg PO BEDTIME PRN (Reason: Insomnia) 0RF metoprolol tartrate 50 mg tablet 50 mg PO BID 0RF atorvastatin 10 mg tablet 1 tab PO DAILY 0RF levothyroxine [Euthyrox] 50 mcg tablet 1 tab PO BEDTIME 0RF metformin 1,000 mg tablet 1 tab PO DAILY 0RF furosemide [Lasix] 40 mg tablet 40 mg PO DAILY 0RF omega-3 fatty acids Capsule 2,000 mg PO DAILY 0RF Tumeric 1 tab PO DAILY 0RF Discharge Orders: Discharge Order (Routine); Ordered 05/19/21 Ordered By: Jameel Black Diet: advance to usual diet and low salt diet Activity on Discharge: As tolerated Stand Alone Forms: Patient Portal Discharge page Care Plan Goals: Full recover from cellulitis, weakness Health Concerns: Chronic heart failure now stable Chronic earnest stasis, cellulitis of the legs Plan of Treatment: Take Doxycyline for cellulitis, continue all other medication as usual, follow up with your Doctor in a week you understand that you declined short term rehab Assessment: As above Discharge Date/Time: 05/19/21 15:39
--- NOTE | 2021-05-19 09:19 | P.CDIR_ITS ---
Documented by User: Mary Barajas RN 05/19/21 09:22 Retrospective Query PHYSICIAN'S DOCUMENTATION REQUEST Date of Query: 05/19/21919 Patient Name: Adis Feliz Admit Date: 05/15/21 Dear Doctor, A review of the medical record indicates additional documentation may be indicated. Please review below and update the documentation accordingly. Clinical Indicators: Risk Factors/Clinical Indicators/Treatments Per ED note: L 4th toe black, known osteo/necrosis X-ray left foot: no acute osteomyelitis 4th toe Based on the above, could you please provide, in the Progress Notes, further information regarding the ulcer/wound: * Type (etiology) of ulcer/wound: * Diabetic ulcer * Venous stasis ulcer * Arterial (ischemic) ulcer * Pressure (decubitus) ulcer * Traumatic wound * Non-healing surgical wound * Other * Unable to determine * For a non-pressure ulcer, please indicate the depth/severity: * Limited to the breakdown of skin * With fat layer exposed * With necrosis of muscle * With necrosis of bone * Other * Unable to determine * If a pressure ulcer, please also include the stage* of the ulcer: * Stage 1 - Skin intact, non-blanchable redness * Stage 2 - Partial thickness loss of dermis, includes intact or open blister * Stage 3 - Full thickness tissue not including bone, tendon, or muscle * Stage 4 - Full thickness tissue loss, including exposed bones, tendon, or muscle * Unstageable - Full thickness tissue loss in which the base of the ulcer is covered by slough (yellow, rock, reyes, green or brown) and/or eschar (rock, brown, or black) in the wound bed. * Suspected deep tissue injury - Purple or maroon localized area of discolored intact skin or blood-filled blister due to damage of underlying soft tissues from pressure and/or shear. The area may be preceded by tissue that is painful, firm, mushy, boggy, warmer, or cooler as compare to adjacent tissue. * Unable to determine *Source: National Pressure Ulcer Advisory Panel (NPUAP) Use of terms such as suspected, likely, concern for, or probable (associated with a specific diagnosis that is being evaluated, monitored, or treated as if it exists) are acceptable and can be coded in the inpatient setting, when documented at the time of discharge. Thank you, Mary Barajas RN Extension: [phone] Please use your independent medical judgment in providing your response. THIS QUERY IS PART OF THE PERMANENT MEDICAL RECORD Documented by User: Jameel Black MD 05/19/21 10:28 Retrospective Query Provider Response: Other (No osteomylitis)
--- NOTE | 2021-05-19 09:19 | MHC.CDI.RETR ---
Documented by User: Mary Barajas RN 05/19/21 09:22 Retrospective Query PHYSICIAN'S DOCUMENTATION REQUEST Date of Query: 05/19/21919 Patient Name: Adis Feliz Admit Date: 05/15/21 Dear Doctor, A review of the medical record indicates additional documentation may be indicated. Please review below and update the documentation accordingly. Clinical Indicators: Risk Factors/Clinical Indicators/Treatments Per ED note: L 4th toe black, known osteo/necrosis X-ray left foot: no acute osteomyelitis 4th toe Based on the above, could you please provide, in the Progress Notes, further information regarding the ulcer/wound: Type (etiology) of ulcer/wound: Diabetic ulcer Venous stasis ulcer Arterial (ischemic) ulcer Pressure (decubitus) ulcer Traumatic wound Non-healing surgical wound Other Unable to determine For a non-pressure ulcer, please indicate the depth/severity: Limited to the breakdown of skin With fat layer exposed With necrosis of muscle With necrosis of bone Other Unable to determine If a pressure ulcer, please also include the stage* of the ulcer: Stage 1 - Skin intact, non-blanchable redness Stage 2 - Partial thickness loss of dermis, includes intact or open blister Stage 3 - Full thickness tissue not including bone, tendon, or muscle Stage 4 - Full thickness tissue loss, including exposed bones, tendon, or muscle Unstageable - Full thickness tissue loss in which the base of the ulcer is covered by slough (yellow, rock, reyes, green or brown) and/or eschar (rock, brown, or black) in the wound bed. Suspected deep tissue injury - Purple or maroon localized area of discolored intact skin or blood-filled blister due to damage of underlying soft tissues from pressure and/or shear. The area may be preceded by tissue that is painful, firm, mushy, boggy, warmer, or cooler as compare to adjacent tissue. Unable to determine *Source: National Pressure Ulcer Advisory Panel (NPUAP) Use of terms such as suspected, likely, concern for, or probable (associated with a specific diagnosis that is being evaluated, monitored, or treated as if it exists) are acceptable and can be coded in the inpatient setting, when documented at the time of discharge. Thank you, Mary Barajas RN Extension: [phone] Please use your independent medical judgment in providing your response. THIS QUERY IS PART OF THE PERMANENT MEDICAL RECORD Documented by User: Jameel Black MD 05/19/21 10:28 Retrospective Query Provider Response: Other (No osteomylitis)
--- NOTE | 2021-05-19 10:26 | MHC.CM.PN ---
Addendum entered by Izabela Joe RN 05/19/21 12:33: PT DISCHARGING HOME W/NEW [facility] FOR [facility] AND HOME PT, PT'S SON BILL [phone] NOTIFIED AND AGREEABLE TO RECREATION ATTENDANT PT AT 2PM FOR TRANSPORT, PER PT'S SON PT WAS ACTIVE W/[facility] UNTIL ABOUT A WEEK AGO, CM DID PLACE REFERRAL TO [facility] HOWEVER THERE HAS BEEN NO RESPONSE. Original Note: PER HOSPITALIST PT MEDICALLY CLEARED FOR D/C, PT WOULD LIKE HOME SERVICES NO STR AND REFERRAL PLACED TO [facility].
[2021-05-19 10:36] VITALS: BP 108/50; PULSE 56; RESP 20; TEMP 36.6; O2SAT 95
--- NOTE | 2021-05-19 14:26 | W.MHC.F2F ---
Service Date Service Date: 05/19/21 Encounter Date of encounter: 05/19/21 Reasons for Services Signs and symptoms assessed: Cellulitis of legs, weakness Reason for halfway: medication treatment and teach disease management Reason for physical therapy: home safety and mobility and therapeutic exercises Homebound: Leaving the home is medically contraindicated at this time without the asist of a device and/or another person due th the listed conditions above and below. Reason homebound: leg weakness Certification: Based on the above findings, I certify that this patient is confined to the home and needs intermittent halfway care, physical therapy and/or speech therapy, or continues to need occupational therapy. The patient is under my care, and I have initiated the establishment of the plan of care. The patient will be followed by a physician who will periodically review the plan of care.
== END 2021-05-19 15:39 | disposition home health service (06) | DRG 602 ==
LOC: HO.ED 15:25 → HO.EDOVER 16:52 → HO.S3 19:39
PROVIDERS: Physician Assistant; Admitting Provider Internal Medicine; Emergency Provider Emergency Medicine; PCP Internal Medicine; Visit Provider Internal Medicine
DX: L03.116 Cellulitis of left lower limb (principal); I50.33 Acute on chronic diastolic (congestive) heart failure; I13.0 Hypertensive heart and chronic kidney disease with heart failure and stage 1 through stage 4 chronic kidney disease, or unspecified chronic kidney disease; M87.9 Osteonecrosis, unspecified; I87.323 Chronic venous hypertension (idiopathic) with inflammation of bilateral lower extremity; E78.5 Hyperlipidemia, unspecified; E66.9 Obesity, unspecified; Z68.38 Body mass index [BMI] 38.0-38.9, adult; N18.30 Chronic kidney disease, stage 3 unspecified; E03.9 Hypothyroidism, unspecified; E11.22 Type 2 diabetes mellitus with diabetic chronic kidney disease; I48.91 Unspecified atrial fibrillation; Z20.822 Contact with and (suspected) exposure to COVID-19; Z79.84 Long term (current) use of oral hypoglycemic drugs; Z79.01 Long term (current) use of anticoagulants; Z79.890 Hormone replacement therapy; Z79.899 Other long term (current) drug therapy
CPT/HCPCS: 36415; 71045; 73620; 80048; 80076; 81001; 81003; 82947; 83605; 83735; 83880; 84484; 85025; 87040; 87635; 93005; 93970; 96365; 96375; 97162; 97166; 97535; 99285; J1940; J2543

== ENCOUNTER 2021-07-28 12:40 | Outpatient (RCR) | payer MEDICARE, OTHER, SELFPAY | END 2021-09-18 10:47 | disposition home or self-care (01) | LOC: HO.WCC 12:40 | PROVIDERS: PCP Internal Medicine; Visit Provider Surgery | DX: E11.621 Type 2 diabetes mellitus with foot ulcer (principal); E11.51 Type 2 diabetes mellitus with diabetic peripheral angiopathy without gangrene; L97.512 Non-pressure chronic ulcer of other part of right foot with fat layer exposed; L97.522 Non-pressure chronic ulcer of other part of left foot with fat layer exposed; I87.2 Venous insufficiency (chronic) (peripheral); R60.0 Localized edema; E11.40 Type 2 diabetes mellitus with diabetic neuropathy, unspecified; C85.90 Non-Hodgkin lymphoma, unspecified, unspecified site; I50.9 Heart failure, unspecified; Z89.422 Acquired absence of other left toe(s); Z85.72 Personal history of non-Hodgkin lymphomas; Z79.84 Long term (current) use of oral hypoglycemic drugs; L97.221 Non-pressure chronic ulcer of left calf limited to breakdown of skin | CPT/HCPCS: 11042; 97597; 99213; 99215 ==

== ENCOUNTER 2021-10-12 13:04 | Inpatient (IN) | payer MEDICARE, OTHER, SELFPAY ==
--- NOTE | ~2021-10-12 | CT_ITS ---
EXAMINATION: CT HEAD WITHOUT CONTRAST CT FACIAL BONES WITHOUT CONTRAST CT CERVICAL SPINE WITHOUT CONTRAST CLINICAL INFORMATION: Fall. Trauma to head. Jaw pain. COMPARISON: None. TECHNIQUE: Imaging was performed from the skull base to vertex without intravenous administration of contrast. In addition, helical noncontrast CT imaging was acquired through the cervical spine and facial bones and source images were reviewed along with axial reconstructions and sagittal and coronal MPRs. [This CT examination was performed using dose optimization techniques as appropriate, variously including the following: *Automated exposure control *Adjustment of mA and/or kV according to patient size (this includes techniques or standardized protocols for targeted exams where dose is matched to indication/reason for exam; i.e. 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 No intracranial mass, hemorrhage, or midline shift is visualized. The ventricles and sulci are normal. No extra-axial collections are identified. FACIAL BONES: There is no evidence of an acute facial bone fracture. The paranasal sinuses are well aerated. . The orbits are unremarkable in appearance. CERVICAL SPINE: There is no evidence of acute cervical spine fracture. Vertebral bodies remain normal in height. Multilevel degenerative spondylosis. Cervical disc height narrowing and endplate spurring of the vertebrae. Multilevel facet joint arthrosis. No pre- or paravertebral soft tissue abnormality is identified. Limited assessment of the lung apices is unremarkable. CT/CT facial bones wo con IMPRESSION: 1. No acute intracranial process or discrete facial bone fracture. 2. No acute cervical spine fracture or traumatic subluxation.
--- NOTE | ~2021-10-12 | CT_ITS ---
EXAMINATION: CT HEAD WITHOUT CONTRAST CT FACIAL BONES WITHOUT CONTRAST CT CERVICAL SPINE WITHOUT CONTRAST CLINICAL INFORMATION: Fall. Trauma to head. Jaw pain. COMPARISON: None. TECHNIQUE: Imaging was performed from the skull base to vertex without intravenous administration of contrast. In addition, helical noncontrast CT imaging was acquired through the cervical spine and facial bones and source images were reviewed along with axial reconstructions and sagittal and coronal MPRs. [This CT examination was performed using dose optimization techniques as appropriate, variously including the following: *Automated exposure control *Adjustment of mA and/or kV according to patient size (this includes techniques or standardized protocols for targeted exams where dose is matched to indication/reason for exam; i.e. 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 No intracranial mass, hemorrhage, or midline shift is visualized. The ventricles and sulci are normal. No extra-axial collections are identified. FACIAL BONES: There is no evidence of an acute facial bone fracture. The paranasal sinuses are well aerated. . The orbits are unremarkable in appearance. CERVICAL SPINE: There is no evidence of acute cervical spine fracture. Vertebral bodies remain normal in height. Multilevel degenerative spondylosis. Cervical disc height narrowing and endplate spurring of the vertebrae. Multilevel facet joint arthrosis. No pre- or paravertebral soft tissue abnormality is identified. Limited assessment of the lung apices is unremarkable. CT/CT cervical spine wo con IMPRESSION: 1. No acute intracranial process or discrete facial bone fracture. 2. No acute cervical spine fracture or traumatic subluxation.
--- NOTE | ~2021-10-12 | CT_ITS ---
EXAMINATION: CT CHEST WITHOUT CONTRAST CLINICAL INFORMATION: Chest pain status post fall. COMPARISON: 11/22/2020 chest radiograph. TECHNIQUE: Multidetector volumetric CT imaging of the chest was done. Axial MIP volume rendering provided. Sagittal and coronal reformatted images were obtained. There is limitation secondary to respiratory motion artifact. This CT examination was performed using dose optimization techniques as appropriate, variously including the following: *Automated exposure control *Adjustment of mA and/or kV according to patient size (this includes techniques or standardized protocols for targeted exams where dose is matched to indication/reason for exam; i.e. extremities or head) *Use of iterative reconstruction technique DLP: 505 mGy-cm FINDINGS: LUNGS/PLEURA/AIRWAYS: Evaluation for small nodules is limited. Mild prominence of the pulmonary vascular. Small bilateral pleural effusions. Mild superjacent atelectasis. No pneumothorax. No focal consolidation. MEDIASTINUM: The thyroid gland shows evidence for right thyroidectomy. A nodule in the left isthmus measures 2.0 cm (previously 1.2 cm), image 3, series 43). The thoracic aorta measures up to 4.2 cm in AP dimension without significant change (image 18, series 3). Mild thoracic atherosclerosis. Small pericardial effusion. Moderate coronary artery calcifications. UPPER ABDOMEN: Minimal dependent sludge/gravel in the gallbladder without surrounding abnormality. Mild pancreatic fatty atrophy. MUSCULOSKELETAL: Mild multilevel thoracic degenerative disc disease with disc space narrowing and marginal osteophyte formation. SOFT TISSUES: Moderate bilateral gynecomastia. CT/CT chest wo con IMPRESSION: 1. Small bilateral pleural effusions with mild superjacent atelectasis. This does not appear posttraumatic and could be secondary to mild congestion. Short-term follow-up with chest radiographs is recommended as indicated. 2. Interval increase in size of left isthmus nodule up to 2.0 cm. This is amenable to further evaluation with dedicated thyroid ultrasound. 3. Dilatation of the ascending thoracic aorta up to 4.2 cm without significant change. 4. Moderate bilateral gynecomastia without significant change. Fleischner guidelines were followed.
[2021-10-12 13:08] VITALS: BP 140/70; PULSE 82; O2SAT 95
[2021-10-12 13:19] VITALS: BP 140/70; PULSE 80; RESP 16; TEMP 36.4; O2SAT 95; BMI 37.5
--- NOTE | 2021-10-12 13:34 | ECG_ITS ---
Test Reason : WEAKNESS Blood Pressure : / mmHG Vent. Rate : 072 BPM Atrial Rate : 000 BPM P-R Int : 000 ms QRS Dur : 144 ms QT Int : 474 ms P-R-T Axes : 000 067 -23 degrees QTc Int : 519 ms Atrial fibrillation Right bundle branch block Abnormal ECG When compared with ECG of 15-MAY-2021 11:50, Atrial fibrillation has replaced Atrial flutter Nonspecific T wave abnormality no longer evident in Lateral leads Referred By: Joshua Fischer Electronically Signed By:Santy Tang
[2021-10-12 15:25] VITALS: BP 156/86; PULSE 68; RESP 18; TEMP 36.6; O2SAT 93
[2021-10-12 15:34] LABS: MANUAL DIFF FLAG NO
[2021-10-12 15:36] LABS: Basophils Percent Auto 0.4 % (0-2); Eosinophils Absolute Auto 0.1 X10*3/uL (0.0-0.4); Eosinophils Percent Auto 1.1 % (0-4); Hematocrit 40.5 % (42.0-52.0); Hemoglobin 12.5 g/dl (14.0-18.0); Imm Gran Abs Auto 0.03 X10*3/uL (0.00-0.03); Imm Gran Pct Auto 0.4 % (0.0-0.4); Lymphocytes Absolute Auto 0.7 X10*3/uL (1.2-4.9); Lymphocytes Percent Auto 8.1 % (20-40); Mean Corpuscular HGB Conc 30.9 g/dl (31.0-36.0); Mean Corpuscular Hemoglobin 28.7 pg (27.0-33.0); Mean Corpuscular Volume 92.9 fL (80.0-98.0); Monocytes Absolute Auto 0.8 X10*3/uL (0.1-1.2); Neutrophils Absolute Auto 6.8 x10*3/uL (2.0-8.3); Platelet Count 149 X10*3/uL (160-400); Red Blood Count 4.36 X10*6/uL (4.60-5.80); Red Cell Distribution Width 15.8 % (11.0-16.0); White Blood Count 8.4 X10*3/uL (4.8-10.8)
[2021-10-12 15:50] LABS: INTERNATIONAL NORM RATIO 1.2 (0.9-1.1); Prothrombin Time 14.2 SEC (10.0-13.1)
[2021-10-12 15:50] LABS: Alanine Aminotransferase 16 U/L (0-40); Albumin Level 3.3 g/dL (3.5-5.0); Alkaline Phosphatase 88 U/L (39-117); Anion Gap 10 (12-20); Aspartate Amino Transferase 21 U/L (5-37); Blood Urea Nitrogen 22 mg/dL (9-16); Calcium 8.3 mg/dL (8.4-10.2); Carbon Dioxide 31 mmol/L (22-29); Chloride 104 mmol/L (96-108); Creatinine Clr Calc Pharmacy 73.9; Estimated Glomerular Filt Rate 57; Glucose Random 117 mg/dL (60-115); Potassium 4.3 mmol/L (3.3-5.1); Sodium 141 mmol/L (135-145); Total Protein 7.4 g/dL (6.5-8.0)
[2021-10-12 15:53] LABS: Partial Thromboplastin Time 40.3 SEC (24.1-38.0)
[2021-10-12 15:54] LABS: B Type Natriuretic Peptide 1504 pg/mL (<100)
--- NOTE | 2021-10-12 15:55 | ED.GENADULT ---
HPI - General Adult General Chief complaint: General Medical Stated complaint: jaw pain, difficulty breathing Time Seen by Provider: 10/12/21 13:29 Source: patient Mode of arrival: ambulatory Limitations: no limitations History of Present Illness HPI narrative: 76-year-old male presents to the ED for falling in complaining of jaw pain. Patient states he fell and hit his face on the jaw started having headache and nausea. patient states he was sitting on his chair and he slid off and hit his head on the faucet. Patient's secondary complaint is shortness of breath and increased swelling of lower extremities. Caution also states penile swelling. Patient states he has a roommate but cares for his own. Patient denies any chest pain or UR symptoms Related Data Home Medications Medication Instructions Recorded Confirmed apixaban 5 mg tablet (Eliquis) 1 tab PO BID 11/22/20 09/01/21 Tumeric 1 tab PO DAILY 01/09/21 09/01/21 atorvastatin 10 mg tablet 1 tab PO DAILY 01/09/21 09/01/21 furosemide 40 mg tablet (Lasix) 40 mg PO DAILY 01/09/21 09/01/21 levothyroxine 50 mcg tablet 1 tab PO BEDTIME 01/09/21 09/01/21 (Euthyrox) metformin 1,000 mg tablet 1 tab PO DAILY 01/09/21 09/01/21 omega-3 fatty acids 2,000 mg PO DAILY 01/09/21 09/01/21 melatonin 3 mg tablet 3 mg PO BEDTIME PRN Insomnia 05/15/21 09/01/21 metoprolol tartrate 50 mg tablet 50 mg PO BID 05/15/21 09/01/21 amoxicillin 875 mg-potassium 1 tab PO BID 09/01/21 09/01/21 clavulanate 125 mg tablet minocycline 100 mg capsule 100 mg PO BID 09/01/21 09/01/21 nystatin 100,000 unit/gram topical topical 09/01/21 09/01/21 powder (Nystop) nystatin 100,000 unit/mL oral 5 ml PO QID 09/01/21 09/01/21 suspension Previous Rx's Medication Instructions Recorded doxycycline hyclate 100 mg tablet 100 mg PO Q12H #10 tabs 05/19/21 Allergies Allergy/AdvReac Type Severity Reaction Status Date / Time No Known Allergies Allergy Verified 09/01/21 14:10 Review of Systems Review of Systems: lower extremity swelling, penile swelling, shortness of breath, hitting head jaw on Gurmeet [facility], [facility] Past Medical History Medical History Afib Bilateral inguinal hernia CHF (congestive heart failure) Diabetes H/O renal calculi Inguinal hernia Lymphoma Surgical History History of ear surgery History of excision of mass History of excision of pilonidal cyst History of throat surgery Family History Family History Mother Breast cancer Social History Social History Household Members: None Housing: House Do you presently have visiting nurse or other home services: Yes Alcohol intake: never Patient Tobacco Use Status: Former Tobacco user e-Cigarette/Vaping Use: Never Used Advance Directives: Yes Advance Directives Information Provided: Yes Advance Directives on File: No Advance Directives Date on File: 11/22/20 service: No Current occupational status: retired Cognitive needs: No Hearing needs: No Vision needs: No Physical Exam ED Vital Signs: Vital Signs - 24 hr 10/12/21 13:19 10/12/21 15:25 10/12/21 18:48 Temperature 97.6 F 97.9 F 97.6 F Pulse Rate 80 68 62 Respiratory Rate 16 18 18 Blood Pressure 140/70 H 156/86 H 174/89 H Pulse Oximetry 95 93 89 L Oxygen Delivery Method Room Air Room Air Room Air BMI result Body Mass Index 37.5 Const General: cooperative, healthy appearing, comfortable, no acute distress, well developed and alert Orientation/consciousness: patient oriented x3 HENMT Head: Yes normal to inspection, Yes No palpable skull fracture present, Yes normocephalic, Yes atraumatic and No abrasion Eyes General: appearance normal, both eyes and all related structures Neck Neck: Yes normal visual inspection, Yes full ROM, Yes no lymphadenopathy, Yes no meningeal signs, Yes trachea midline, Yes supple, No anterior neck swelling and No tender Chest Chest palpation & inspection: normal inspection of the chest and normal palpation of entire chest wall Resp Effort & Inspection: normal respiratory effort and able to speak in complete sentences Auscultation: clear to auscultation bilaterally Cardio Jugular venous distension: no JVD Heart sounds: S1 normal heart sound present and S2 normal heart sound present GI Inspection: Yes normal to inspection and No abdominal wall ecchymosis Palpation (GI): Soft to palpation, not firm, nontender, no guarding and not rigid Other: penis swollen due to anasarca General: No CVA tenderness and Yes no CVA tenderness Back/Spine/Pelvis Back: no CVA tenderness and No CVA tenderness Skin Other: Bilateral lower extremity chronic venous stasis color changes and venous ulcers noninfected. Neuro General: patient oriented x3, gait normal and no meningeal signs Cranial nerves: Yes CN's II-XII intact bilaterally Extrem Other: Bilateral lower extremity swelling with pitting edema. Negative for calf tenderness General: Yes normal to inspection and Yes full ROM Psych Appearance: grossly normal, well kempt and not disheveled Course Course Course Narrative: imaging and cardiac evaluation will be ordered Reevaluation(s) Reevaluation #1: for at least 2-3 hours nursing staff and I was trying to convince patient to be admitted but patient was refusing care. Patient was refusing IV, Lasix and refusing to be admitted. And O2 saturation dropped to 89% and patient was made aware of severity of situation patient agreed to be admitted for CHf observation. BNP now 1500. First troponin was negative. EKG negative STEMI. Chest CT shows pleural effusion bilaterally. CT cervical spine facial normal. Patient now agreeable for admission. Patient accepted by hospitalist. Dr. Galvez Time: 19:29 Medical Decision Making [facility] Narrative Medical decision making narrative: CHF exacerbation Lab Data Result diagrams: 10/12/21 15:19 10/12/21 15:24 Labs: Lab Results 10/12/21 10/12/21 10/12/21 Range/Units 15:19 15:19 15:19 WBC 8.4 (4.8-10.8) X10*3/uL RBC 4.36 L (4.60-5.80) X10*6/uL Hgb 12.5 L (14.0-18.0) g/dl Hct 40.5 L (42.0-52.0) % MCV 92.9 (80.0-98.0) fL MCH 28.7 (27.0-33.0) pg MCHC 30.9 L (31.0-36.0) g/dl RDW 15.8 (11.0-16.0) % Plt Count 149 L (160-400) X10*3/uL MPV 12.0 (9.4-12.4) fL Immature Gran % (Auto) 0.4 (0.0-0.4) % Neut % (Auto) 81.0 H (45-73) % Lymph % (Auto) 8.1 L (20-40) % Hunt % (Auto) 9.0 (2-11) % Eos % (Auto) 1.1 (0-4) % Baso % (Auto) 0.4 (0-2) % Lymph # (Auto) 0.7 L (1.2-4.9) X10*3/uL Hunt # (Auto) 0.8 (0.1-1.2) X10*3/uL Eos # (Auto) 0.1 (0.0-0.4) X10*3/uL Baso # (Auto) 0.0 (0.0-0.2) X10*3/uL Abs Immat Gran (auto) 0.03 (0.00-0.03) X10*3/uL Absolute Neuts (auto) 6.8 (2.0-8.3) x10*3/uL Absolute Nucleated RBC 0.000 (0.0-0.012) X10*3/uL Nucleated RBC % (auto) 0.0 (0.0-0.2) /100WBC PT 14.2 H (10.0-13.1) SEC INR 1.2 H (0.9-1.1) APTT 40.3 H (24.1-38.0) SEC Sodium (135-145) mmol/L Potassium (3.3-5.1) mmol/L Chloride (96-108) mmol/L Carbon Dioxide (22-29) mmol/L Anion Gap (12-20) BUN (9-16) mg/dL Creatinine (0.5-1.4) mg/dL Estim Creat Clear Calc Estimated GFR Random Glucose (60-115) mg/dL Calcium (8.4-10.2) mg/dL Total Bilirubin (0.0-1.0) mg/dL AST (5-37) U/L ALT (0-40) U/L Alkaline Phosphatase (39-117) U/L Troponin I High Sens 22.4 (<3.5-35.0) ng/L B-Natriuretic Peptide 1504 H (<100) pg/mL Total Protein (6.5-8.0) g/dL Albumin (3.5-5.0) g/dL 10/12/21 Range/Units 15:24 WBC (4.8-10.8) X10*3/uL RBC (4.60-5.80) X10*6/uL Hgb (14.0-18.0) g/dl Hct (42.0-52.0) % MCV (80.0-98.0) fL MCH (27.0-33.0) pg MCHC (31.0-36.0) g/dl RDW (11.0-16.0) % Plt Count (160-400) X10*3/uL MPV (9.4-12.4) fL Immature Gran % (Auto) (0.0-0.4) % Neut % (Auto) (45-73) % Lymph % (Auto) (20-40) % Hunt % (Auto) (2-11) % Eos % (Auto) (0-4) % Baso % (Auto) (0-2) % Lymph # (Auto) (1.2-4.9) X10*3/uL Hunt # (Auto) (0.1-1.2) X10*3/uL Eos # (Auto) (0.0-0.4) X10*3/uL Baso # (Auto) (0.0-0.2) X10*3/uL Abs Immat Gran (auto) (0.00-0.03) X10*3/uL Absolute Neuts (auto) (2.0-8.3) x10*3/uL Absolute Nucleated RBC (0.0-0.012) X10*3/uL Nucleated RBC % (auto) (0.0-0.2) /100WBC PT (10.0-13.1) SEC INR (0.9-1.1) APTT (24.1-38.0) SEC Sodium 141 (135-145) mmol/L Potassium 4.3 (3.3-5.1) mmol/L Chloride 104 (96-108) mmol/L Carbon Dioxide 31 H (22-29) mmol/L Anion Gap 10 L (12-20) BUN 22 H (9-16) mg/dL Creatinine 1.23 (0.5-1.4) mg/dL Estim Creat Clear Calc 73.9 Estimated GFR 57 Random Glucose 117 H (60-115) mg/dL Calcium 8.3 L (8.4-10.2) mg/dL Total Bilirubin 1.0 (0.0-1.0) mg/dL AST 21 (5-37) U/L ALT 16 (0-40) U/L Alkaline Phosphatase 88 (39-117) U/L Troponin I High Sens (<3.5-35.0) ng/L B-Natriuretic Peptide (<100) pg/mL Total Protein 7.4 (6.5-8.0) g/dL Albumin 3.3 L (3.5-5.0) g/dL ECG Data Interpretation: atrial fibrillation. Right bundle-branch block. Ventricular rate 72. QRS 144 pr QTC 519. Negative Discharge Plan Discharge Clinical Impression: CHF (congestive heart failure) Patient Disposition: Admitted As Inpatient
[2021-10-12 16:20] LABS: Troponin-I High Sensitivity 22.4 ng/L (<3.5-35.0)
[2021-10-12 18:48] VITALS: BP 174/89; PULSE 62; RESP 18; TEMP 36.4; O2SAT 89
--- NOTE | 2021-10-12 18:51 | PC.NURSE ---
assumed care for pt at this time. Pt very weak on feet, required 3 assist back to bed. PA at bedside for re-eval, plan for admit. Elias low legs weeping, saturated through dsgs. Multiple blistered and open areas to right low. leg. New dsg applied. Resting comfortably at this time awaiting hospitalist eval.
[2021-10-12] MEDS: Furosemide 40 MG/4 ML VIAL IVPUSH (19:09)
--- NOTE | 2021-10-12 19:27 | PM.IMHP ---
History of Present Illness Date of Service: 10/12/21 Chief Complaint: sob 76-year-old male with a past medical history of hypertension, hyperlipidemia, diabetes diastolic CHF, AFib on Eliquis, lymphoma, hypothyroidism, CKD; chronic venous stasis; obesity presented to the hospital today with a chief complaint of shortness of breath. Patient is a poor historian. Patient reported that he was sitting the commode in the bathroom, later he slipped and hit his head although the faucet; denies any loss of consciousness. Later he developed shortness of breath which has been gradually worsening. Complains of dyspnea on exertion. Denies any chest pain or palpitations. Mentions he has been complaint with his home medications. Denies any fever chills cough. Denies any GI symptoms. Review of all other systems is negative except mentioned above ER course: Per ER team patient fall noted to be mechanical, CT head and CT C-spine showed no acute findings. Patient later on noted to be desatted to 89%; has crackles on exam; chest x-ray showed small bilateral pleural effusions; proBNP elevated. Concern for acute CHF. Given IV Lasix. Admitted for further management. [facility] Medical History Afib Bilateral inguinal hernia CHF (congestive heart failure) Diabetes H/O renal calculi Inguinal hernia Lymphoma Family History Mother Breast cancer Surgical History History of ear surgery History of excision of mass History of excision of pilonidal cyst History of throat surgery Social History Household Members: None Housing: House Do you presently have visiting nurse or other home services: Yes Alcohol intake: never Patient Tobacco Use Status: Former Tobacco user e-Cigarette/Vaping Use: Never Used Advance Directives: Yes Advance Directives Information Provided: Yes Advance Directives on File: No Advance Directives Date on File: 11/22/20 service: No Current occupational status: retired Cognitive needs: No Hearing needs: No Vision needs: No Meds Allergies Allergy/AdvReac Type Severity Reaction Status Date / Time No Known Allergies Allergy Verified 09/01/21 14:10 Active Medications: Current Medications Acetaminophen (Acetaminophen 325 Mg Tablet) 650 mg PO Q6H PRN PRN Reason: Pain, Mild (Pain Scale 1-3) Benzonatate (Benzonatate 100 Mg Capsule) 100 mg PO TID PRN PRN Reason: Cough Furosemide (Furosemide 40 Mg/4 Ml Vial) 40 mg IVPUSH DAILY [facility]; Protocol Hydromorphone HCl (Hydromorphone Hcl 0.5 Mg/0.5 Ml Syringe) 0.5 mg IVPUSH Q4H PRN; Protocol PRN Reason: Pain, Severe (Pain Scale 7-10) Melatonin (Melatonin 3 Mg Tablet) 6 mg PO BEDTIME PRN PRN Reason: Insomnia Pharmacy Consult (Consult Rx Perform Med Rec) 1 each MISCELLANE ONCE PRN PRN Reason: Consult order Senna (Sennosides 8.6 Mg Tablet) 17.2 mg PO BEDTIME PRN PRN Reason: Constipation Sodium Chloride (0.9 % Sodium Chloride Flush 3 Ml Syringe) 3 ml IVFLUSH QSHIFT [facility] Home Medications Medication Instructions Recorded Confirmed Last Taken Type apixaban 5 mg tablet (Eliquis) 1 tab PO BID 11/22/20 10/12/21 05/15/21 History Tumeric 1 tab PO DAILY 01/09/21 10/12/21 05/15/21 History atorvastatin 10 mg tablet 1 tab PO DAILY 01/09/21 10/12/21 05/15/21 History furosemide 40 mg tablet (Lasix) 40 mg PO DAILY 01/09/21 10/12/21 05/15/21 History levothyroxine 50 mcg tablet 1 tab PO DAILY 01/09/21 10/12/21 05/14/21 History (Euthyrox) metformin 1,000 mg tablet 1 tab PO DAILY 01/09/21 10/12/21 05/15/21 History omega-3 fatty acids 2,000 mg PO DAILY 01/09/21 10/12/21 05/15/21 History melatonin 3 mg tablet 3 mg PO BEDTIME PRN Insomnia 05/15/21 10/12/21 05/14/21 History metoprolol tartrate 50 mg tablet 50 mg PO BID 05/15/21 10/12/21 05/15/21 History Physical Exam Vital Signs and Narrative: Vital Signs: Last Vital Signs Temp 97.6 F 10/12/21 18:48 Pulse 62 10/12/21 18:48 Resp 18 10/12/21 18:48 BP 174/89 H 10/12/21 18:48 Pulse Ox 89 L 10/12/21 18:48 O2 Del Method 10/12/21 18:48 BMI result Body Mass Index 37.5 Gen: Appears be in no acute distress. On supplemental oxygen. Speaks in full sentences. HEENT: NCAT, Moist mucosa. Pulmonary: Bilateral crackles present CVS: Normal S1-S2 Abdomen: BS+, Soft, Nontender Extremities: Warm well perfused; bilateral legs are warm, tender, erythematous; right leg noted to have open ulcer. 3+ pitting edema. Neuro: Alert and awake. Results Labs CBC and Chem 7: 10/12/21 15:19 10/12/21 15:24 Labs: Laboratory Results - last 24 hr 10/12/21 10/12/21 10/12/21 15:19 15:19 15:19 MCV 92.9 MCH 28.7 MCHC 30.9 L RDW 15.8 Plt Count 149 L MPV 12.0 Immature Gran % (Auto) 0.4 Neut % (Auto) 81.0 H Lymph % (Auto) 8.1 L Kendall % (Auto) 9.0 Eos % (Auto) 1.1 Baso % (Auto) 0.4 Lymph # (Auto) 0.7 L Kendall # (Auto) 0.8 Eos # (Auto) 0.1 Baso # (Auto) 0.0 Abs Immat Gran (auto) 0.03 Absolute Neuts (auto) 6.8 Absolute Nucleated RBC 0.000 Nucleated RBC % (auto) 0.0 PT 14.2 H INR 1.2 H APTT 40.3 H Anion Gap Estim Creat Clear Calc Estimated GFR Random Glucose Calcium Total Bilirubin AST ALT Alkaline Phosphatase Troponin I High Sens 22.4 B-Natriuretic Peptide 1504 H Total Protein Albumin 10/12/21 15:24 MCV MCH MCHC RDW Plt Count MPV Immature Gran % (Auto) Neut % (Auto) Lymph % (Auto) Kendall % (Auto) Eos % (Auto) Baso % (Auto) Lymph # (Auto) Kendall # (Auto) Eos # (Auto) Baso # (Auto) Abs Immat Gran (auto) Absolute Neuts (auto) Absolute Nucleated RBC Nucleated RBC % (auto) PT INR APTT Anion Gap 10 L Estim Creat Clear Calc 73.9 Estimated GFR 57 Random Glucose 117 H Calcium 8.3 L Total Bilirubin 1.0 AST 21 ALT 16 Alkaline Phosphatase 88 Troponin I High Sens B-Natriuretic Peptide Total Protein 7.4 Albumin 3.3 L Imaging Radiologist's Impressions: Impressions Head CT 10/12/21 15:15 IMPRESSION: 1. No acute intracranial process or discrete facial bone fracture. 2. No acute cervical spine fracture or traumatic subluxation. Cervical Spine CT 10/12/21 15:25 IMPRESSION: 1. No acute intracranial process or discrete facial bone fracture. 2. No acute cervical spine fracture or traumatic subluxation. Chest CT 10/12/21 15:25 IMPRESSION: 1. Small bilateral pleural effusions with mild superjacent atelectasis. This does not appear posttraumatic and could be secondary to mild congestion. Short-term follow-up with chest radiographs is recommended as indicated. 2. Interval increase in size of left isthmus nodule up to 2.0 cm. This is amenable to further evaluation with dedicated thyroid ultrasound. 3. Dilatation of the ascending thoracic aorta up to 4.2 cm without significant change. 4. Moderate bilateral gynecomastia without significant change. Fleischner guidelines were followed. Face CT 10/12/21 15:25 IMPRESSION: 1. No acute intracranial process or discrete facial bone fracture. 2. No acute cervical spine fracture or traumatic subluxation. Assessment and Plan (1) Acute CHF: Status: Acute (2) Diabetes 1.5, managed as type 1: Status: Acute Plan 76-year-old male with a past medical history of hypertension, hyperlipidemia, diabetes diastolic CHF, AFib on Eliquis, lymphoma, hypothyroidism, CKD; chronic venous stasis; obesity presented to the hospital today with a chief complaint of shortness of breath. Noted to be in acute CHF. Admitted for further management. Acute on chronic CHF: Patient was hypoxic to 89% on room air- placed on supplemental oxygen. CT chest showed bilateral small pleural effusions, proBNP elevated. No prior echo in the records. Will repeat an echocardiogram initial troponin 22.4-repeat troponin pending EKG nonischemic Cardiology consult Daily weights and I's and O's IV Lasix 40 mg daily Fall: Mechanical in nature. CT head, CT C-spine abd Face CT showed no acute findings. Exam nonfocal. PT/OT eventually Hypertension: Continue home metoprolol. CT scan showed aortic aneurysm measuring 4.2 cm. Labetalol p.r.n. for low blood pressure less than 140/90. Bilateral leg cellulitis: Right leg had an ulcer. Will consult. Id consult. Continue IV vancomycin and Zosyn. chronic medical conditions: History of hyperlipidemia:Continue home statin History of hypothyroidism: Continue home levothyroxine History of diabetes: Hold metformin. Insulin sliding scale for now. History of AFib: Rate controlled. Continue home Eliquis. DVT prophylaxis: Patient on Eliquis Code status: Full code Quality Stroke Does the patient have a stroke diagnosis?: No VTE Prior VTE?: No VTE Risk Level:: Medical - moderate - high VTE Device Contraindication: Treatment Not Indicated VTE Drug Contraindication: N/A - Med Ordered
[2021-10-12 19:38] LABS: Troponin-I High Sensitivity 23.8 ng/L (<3.5-35.0)
--- NOTE | 2021-10-12 19:59 | PHA.MEDREC ---
MED REC COMPLETE, PATIENT DID NOT SEEM TO BE A GREAT HISTORIAN, SOME MEDS HAVE NOT BEEN FILLED IN A WHILE BUT HE SAYS HE IS STILL SUPPOSED TO BE ON, SUCH APIXABAN Pharmacy Consult ? Medication Reconciliation Pharmacy has completed the medication reconciliation.
[2021-10-12 20:17] LABS: COVID-19 Test Negative (Negative)
[2021-10-12 20:35] LABS: Glucose, Whole Blood 107 mg/dL (60-115)
[2021-10-12 20:57] VITALS: BP 181/93; PULSE 68; RESP 18; O2SAT 96
--- NOTE | 2021-10-12 20:58 | PC.NURSE ---
incontinent large amt of urine. Cleaned and repositioned. Resting comfortably at this time
--- NOTE | 2021-10-12 22:32 | PHA.PROG ---
Admission Date/Time: October 12, 2021 19:24 Indication: SKIN? Weight in k.449 kg Adjusted body weight in [place] body weight in K.2 Obesity Dosing Indication % IBW: Serum Creatinine - Last 168 Hours 10/12/21 15:24 Creatinine 1.23 Estimated CrCl and GFR - Last 168 Hours 10/12/21 15:24 Estim Creat Clear Calc 73.9 Estimated GFR 57 Vancomycin Loading Dose: 2000 mg Current Vancomycin Dosing Regimen: 1250 MG Q24 Vancomycin Monitoring using AUC goal of 400 - 600 range with trough as surrogate marker: 444/10.9 Date and Time for next Vancomycin Level to be drawn:10/14 @2100 Pharmacist Comments on Vancomycin Plan: mildly cautious dosing due to pt age and renal function Vancomycin dosing will take advantage of [employer] as a clinical decision support tool that uses Bayesian modeling to calculate individual patient's pharmacokinetic parameters and forecast the patient's drug concentration time course with the target goal AUC 24 range of 400 - 600 mg/L/hr.
[2021-10-12] MEDS: Piperacillin Sodium/Tazobactam 3.375 GM in 0.9 % Sodium Chloride 50 ML IV (22:38)
[2021-10-12 22:43] VITALS: BP 154/65; PULSE 74; RESP 24; O2SAT 96
[2021-10-13] VITALS (16 sets, daily range): BP systolic 102–161; BP diastolic 43–104; PULSE 45–77; RESP 12–26; TEMP 35.3–36.6; O2SAT 92–100
[2021-10-13] MEDS: 0.9 % Sodium Chloride Flush 3 ML SYRINGE IVFLUSH ×3 (00:43→17:37)
[2021-10-13] MEDS: Piperacillin Sodium/Tazobactam 3.375 GM in 0.9 % Sodium Chloride 50 ML IV ×2 (04:23→11:49)
[2021-10-13 04:47] LABS: Glucose, Whole Blood 89 mg/dL (60-115)
--- NOTE | 2021-10-13 07:00 | CA_ITS ---
Transthoracic Echocardiogram Patient (Last, First, Middle): Adis Feliz, Gender: Male Date of : 1945 Age: 76 Procedure Date: 10/13/2021 Procedure Type: Transthoracic Echocardiogram Location: ICU Height: 187.96 cm Weight: 132.45 kg BSA: 2.55 m2 Heart Rate: bpm BP: 138 / 55 mmHg Associate Professor Of Pathology: Referring MD: Nehemiah Swan MD Symptoms: chf Study Quality: Technically Difficult due to obesity ECG Rhythm: Sinus Conclusions: - Normal left ventricular cavity size. There is severely increased left ventricular wall thickness. The left ventricular systolic function is hyperdynamic. The visually estimated ejection fraction is between 65-70%. - The left atrium is severely dilated. - There is severe aortic valve stenosis. - Significantly elevated right atrial pressure. Findings Procedure Information Contrast agent, definity, is being given per protocol without apparent complications. Left Ventricle Normal left ventricular cavity size. There is severely increased left ventricular wall thickness. The left ventricular systolic function is hyperdynamic. The visually estimated ejection fraction is between 65-70%. There is no evidence of regional wall motion abnormalities. Diastolic function is indeterminate on the basis of available data. Right Ventricle The right ventricle was not well visualized. Atria The left atrium is severely dilated. Aortic Valve There is severe calcification of the aortic valve. There is severe aortic valve stenosis. The peak aortic velocity is 5.05 m/s. The mean gradient is 66 mmHg. The aortic valve area is 0.56 cm2. There is no aortic valve regurgitation. Mitral Valve There is severe mitral annular calcification. There is no mitral valve regurgitation. There is mild mitral valve stenosis. Pulmonic Valve The pulmonic valve is likely normal. Tricuspid Valve The tricuspid valve was not well visualized. Tricuspid regurgitation envelope is inadequate for calculation of right ventricular systolic pressure. Significantly elevated right atrial pressure. Great Vessels All visible segments of the aorta are normal in size. The visualized portions of the pulmonary artery and branches are normal. Venous The inferior vena cava is severely dilated and does not collapse with inspiration. Pericardium/Pleural There is no evidence of pericardial effusion. Prior Study Comparison No prior study available for comparison. Measurements 2D Linear Measurements IVSd: 1.63 0.6-0.9/0.6-1.0 cm LVIDd: 4.29 3.9-5.3/4.2-5.9 cm LVIDd Index: 1.68 2.4-3.2/2.2-3.1 cm/m2 LVIDs: 2.96 2.0-3.6 cm LVPWd: 1.61 0.7-1.1 cm Ao Root: 3.70 2.1-3.5 cm LA Diam: 3.40 2.7-3.8/3.0-4.0 cm LAIDs Index: 1.33 1.5-2.3 cm/m2 LV Mass: 361.92 67-162/88-224 g LV Mass Index: 141.93 43-95/49-115 g/m2 LVOT Diam: 2.00 3.0+(-)1.3 cm Mitral Valve MV VTI: 0.49 MV Pk Rainer: 1.84 MV Mn Rainer: 0.94 MV Pk Grad: 14.00 MV Mn Grad: 5.00 MV Pk E: 1.49 MV Decel Time: 392.00 E'Lateral: 7.29 E'Medial: 4.24 E/E' Med: 35.10 E/E' Lat: 20.40 PHT: 115.00 MVA PHT: 1.91 MVA Continuity: 1.69 Decel Tillman: 3.80 Aortic Valve AoV Pk Rainer: 5.05 AoV Mn Rainer: 3.83 AoV VTI: 1.47 AoV Pk Grad: 102.00 Aov Mn Grad: 66.00 EILEEN Cont.VTI: 0.56 LVOT LVOT Pk Rainer: 0.86 LVOT Mn Rainer: 0.59 LVOT VTI: 0.26 LVOT Pk Grad: 3.00 LVOT Mn Grad: 2.00 LVOT Diam: 2.00 LVOT Area: 3.14 Diastolic Function MV Pk E: 1.49 E'Medial: 4.24 E/E' Med: 35.10 E' Laterial: 7.29 E/E' Lat: 20.40 Great Vessels Aorta Ao Root-2D: 3.70 2.0-3.7 cm Pulmonary Valve PV Pk Rainer: 1.05 Peak PV Grad: 4.00 Updated in Other Vendor System with Status of Final Santy Tang MD electronically signed on 10/13/2021 5:27:35 PM with status of Final
[2021-10-13 07:29] LABS: Basophils Absolute Auto 0.1 X10*3/uL (0.0-0.2); Basophils Percent Auto 0.5 % (0-2); Eosinophils Absolute Auto 0.1 X10*3/uL (0.0-0.4); Eosinophils Percent Auto 0.9 % (0-4); Hematocrit 43.4 % (42.0-52.0); Hemoglobin 13.2 g/dl (14.0-18.0); Imm Gran Abs Auto 0.05 X10*3/uL (0.00-0.03); Imm Gran Pct Auto 0.5 % (0.0-0.4); Lymphocytes Absolute Auto 0.7 X10*3/uL (1.2-4.9); Lymphocytes Percent Auto 7.4 % (20-40); MANUAL DIFF FLAG SCAN; Mean Corpuscular HGB Conc 30.4 g/dl (31.0-36.0); Mean Corpuscular Hemoglobin 29.1 pg (27.0-33.0); Mean Corpuscular Volume 95.6 fL (80.0-98.0); Monocytes Absolute Auto 1.9 X10*3/uL (0.1-1.2); Monocytes Percent Auto 19.3 % (2-11); Neutrophils Percent Auto 71.4 % (45-73); PLT CLUMP 1; Red Blood Count 4.54 X10*6/uL (4.60-5.80); SCAN SMEAR FLAG 1
[2021-10-13 07:52] LABS: White Blood Count 9.8 X10*3/uL (4.8-10.8)
[2021-10-13 07:53] LABS: Platelet Count 116 X10*3/uL (160-400); SLIDE REVIEW VERIFIED
[2021-10-13 09:02] LABS: Glucose, Whole Blood 90 mg/dL (60-115)
[2021-10-13] MEDS: Furosemide 40 MG/4 ML VIAL IVPUSH ×2 (09:23→17:37)
[2021-10-13 11:04] LABS: Anion Gap 15 (12-20); Blood Urea Nitrogen 19 mg/dL (9-16); Calcium 8.3 mg/dL (8.4-10.2); Carbon Dioxide 26 mmol/L (22-29); Chloride 104 mmol/L (96-108); Creatinine Clr Calc Pharmacy 78.3; Estimated Glomerular Filt Rate > 60; Glucose Random 98 mg/dL (60-115); Potassium 4.4 mmol/L (3.3-5.1); Sodium 141 mmol/L (135-145)
--- NOTE | 2021-10-13 11:11 | PC.NURSE ---
TC sent to dr. hicks regarding pts vitals, rectal temp low at 95.5 - covered pt with warm blankets per dr hicks and monitor temp pts HR bradycardic, dropping to the low 40s (42 at times). no new orders at this time t/w attempted to place a [place] catheter on the pt to monitor output as pt on IV lasix- pts anatomy did not allow for placement of catheter.
--- NOTE | 2021-10-13 11:20 | PM.CNCAR ---
History of Present Illness History of Present Illness Date of Service: 10/13/21 Requesting physician: Jameel Black Chief complaint: Acute CHF Narrative: 76-year-old gentleman who we are consulted for new diagnosis of congestive heart failure. He has background history of atrial fibrillation, chronic kidney disease, diabetes and non-Hodgkin lymphoma. He is presenting lower extremity edema as well as blisters with open areas. He has significant peripheral edema. He was somewhat lethargic at the time of interview but was arousable and was following commands and answering questions appropriately. He denies any shortness of breath at the time interview but it appears he came with shortness of breath and was clinically thought to be in congestive heart failure. [facility] Past Medical History Medical History Afib Bilateral inguinal hernia CHF (congestive heart failure) Diabetes H/O renal calculi Inguinal hernia Lymphoma Family History Family History Mother Breast cancer Surgical History Surgical History History of ear surgery History of excision of mass History of excision of pilonidal cyst History of throat surgery Social History Social History Household Members: None Housing: House Do you presently have visiting nurse or other home services: Yes Alcohol intake: never Patient Tobacco Use Status: Former Tobacco user e-Cigarette/Vaping Use: Never Used Advance Directives Date on File: 11/22/20 service: No Current occupational status: retired Cognitive needs: No Hearing needs: No Vision needs: No Meds Allergies Allergy/AdvReac Type Severity Reaction Status Date / Time No Known Allergies Allergy Verified 09/01/21 14:10 Active Medications: Current Medications Acetaminophen (Acetaminophen 325 Mg Tablet) 650 mg PO Q6H PRN PRN Reason: Pain, Mild (Pain Scale 1-3) Benzonatate (Benzonatate 100 Mg Capsule) 100 mg PO TID PRN PRN Reason: Cough Dextrose (Dextrose 50 % 25 Gm/50 Ml Syringe) 25 gm IVPUSH Q15M PRN; Protocol PRN Reason: per Hypoglycemia Standing Ord. Furosemide (Furosemide 40 Mg/4 Ml Vial) 40 mg IVPUSH DAILY [facility]; Protocol Last Admin: 10/13/21 09:23 Dose: 40 mg Glucose (Glucose Gel 15 Gm Gel..Gram.) 15 gm PO Q15M PRN; Protocol PRN Reason: per Hypoglycemia Standing Ord. Hydromorphone HCl (Hydromorphone Hcl 0.5 Mg/0.5 Ml Syringe) 0.5 mg IVPUSH Q4H PRN; Protocol PRN Reason: Pain, Severe (Pain Scale 7-10) Piperacillin Sod/Tazobactam (Sod 3.375 gm/ Sodium Chloride) 50 mls @ 100 mls/hr IV Q6H [facility] Last Infusion: 10/13/21 08:34 Dose: Infused Vancomycin HCl 1,250 mg/ (Sodium Chloride) 250 mls @ 166.667 mls/hr IV Q24H [facility] Insulin Human Lispro (Insulin Lispro 100 Unit/Ml 3 Ml Vial) 0 unit SUBCUT QIDACHS [facility]; Protocol Last Admin: 10/13/21 08:34 Dose: Not Given Labetalol HCl (Labetalol Hcl 20 Mg/4 Ml Syringe) 10 mg IVPUSH Q4H PRN PRN Reason: BP>140/90 Last Admin: 10/12/21 22:43 Dose: 10 mg Melatonin (Melatonin 3 Mg Tablet) 6 mg PO BEDTIME PRN PRN Reason: Insomnia Pharmacy Consult (Consult Rx Perform Med Rec) 1 each MISCELLANE ONCE PRN PRN Reason: Consult order Pharmacy Consult (Consult Rx Vancomycin Dosing) 1 each MISCELLANE DAILY PRN PRN Reason: Consult order Senna (Sennosides 8.6 Mg Tablet) 17.2 mg PO BEDTIME PRN PRN Reason: Constipation Sodium Chloride (0.9 % Sodium Chloride Flush 3 Ml Syringe) [facility] Last Admin: 10/13/21 09:24 Dose: 3 ml Home Medications Medication Instructions Recorded Confirmed Last Taken Type apixaban 5 mg tablet (Eliquis) 1 tab PO BID 11/22/20 10/12/21 05/15/21 History Tumeric 1 tab PO DAILY 01/09/21 10/12/21 05/15/21 History atorvastatin 10 mg tablet 1 tab PO DAILY 01/09/21 10/12/21 05/15/21 History furosemide 40 mg tablet (Lasix) 40 mg PO DAILY 01/09/21 10/12/21 05/15/21 History levothyroxine 50 mcg tablet 1 tab PO DAILY 01/09/21 10/12/21 05/14/21 History (Euthyrox) metformin 1,000 mg tablet 1 tab PO DAILY 01/09/21 10/12/21 05/15/21 History omega-3 fatty acids 2,000 mg PO DAILY 01/09/21 10/12/21 05/15/21 History melatonin 3 mg tablet 3 mg PO BEDTIME PRN Insomnia 05/15/21 10/12/21 05/14/21 History metoprolol tartrate 50 mg tablet 50 mg PO BID 05/15/21 10/12/21 05/15/21 History Physical Exam Vital Signs: Vital Signs: Last Vital Signs Temp 95.5 F L 10/13/21 11:07 Pulse 45 L 10/13/21 11:07 Resp 20 10/13/21 11:07 BP 113/77 10/13/21 11:07 Pulse Ox 96 10/13/21 11:07 O2 Del Method 10/13/21 11:07 O2 Flow Rate 6 10/13/21 11:07 BMI result Body Mass Index 37.5 GENERAL APPEARANCE: in no acute distress, pleasant. NECK: no carotid bruit, positive jugular venous distention. SKIN: no suspicious lesions, warm and dry. HEART: Systolic murmur, irregularly regular rhythm. LUNGS: clear to auscultation bilaterally. ABDOMEN: soft, nontender. EXTREMITIES: 2+ edema up to the knees with open blisters and wounds. PERIPHERAL PULSES: equal. NEUROLOGIC: No gross deficits, AAO X 3 Objective Labs and Meds Result diagrams: 10/13/21 07:15 10/13/21 09:58 Lab results: Laboratory Results - last 24 hr 10/12/21 10/12/21 10/12/21 15:19 15:19 15:19 WBC 8.4 RBC 4.36 L Hgb 12.5 L Hct 40.5 L MCV 92.9 MCH 28.7 MCHC 30.9 L RDW 15.8 Plt Count 149 L MPV 12.0 Immature Gran % (Auto) 0.4 Neut % (Auto) 81.0 H Lymph % (Auto) 8.1 L [place] % (Auto) 9.0 Eos % (Auto) 1.1 Baso % (Auto) 0.4 Lymph # (Auto) 0.7 L [place] # (Auto) 0.8 Eos # (Auto) 0.1 Baso # (Auto) 0.0 Abs Immat Gran (auto) 0.03 Absolute Neuts (auto) 6.8 Absolute Nucleated RBC 0.000 Nucleated RBC % (auto) 0.0 Smear Tech's Comments PT 14.2 H INR 1.2 H APTT 40.3 H Sodium Potassium Chloride Carbon Dioxide Anion Gap BUN Creatinine Estim Creat Clear Calc Estimated GFR POC Glucose Random Glucose Calcium Total Bilirubin AST ALT Alkaline Phosphatase Troponin I High Sens 22.4 B-Natriuretic Peptide 1504 H Total Protein Albumin COVID-19 (MCKENZIE) COVID-Ropatec 10/12/21 10/12/21 10/12/21 15:24 19:11 19:58 WBC RBC Hgb Hct MCV MCH MCHC RDW Plt Count MPV Immature Gran % (Auto) Neut % (Auto) Lymph % (Auto) [place] % (Auto) Eos % (Auto) Baso % (Auto) Lymph # (Auto) [place] # (Auto) Eos # (Auto) Baso # (Auto) Abs Immat Gran (auto) Absolute Neuts (auto) Absolute Nucleated RBC Nucleated RBC % (auto) Smear Tech's Comments PT INR APTT Sodium 141 Potassium 4.3 Chloride 104 Carbon Dioxide 31 H Anion Gap 10 L BUN 22 H Creatinine 1.23 Estim Creat Clear Calc 73.9 Estimated GFR 57 POC Glucose Random Glucose 117 H Calcium 8.3 L Total Bilirubin 1.0 AST 21 ALT 16 Alkaline Phosphatase 88 Troponin I High Sens 23.8 B-Natriuretic Peptide Total Protein 7.4 Albumin 3.3 L COVID-19 (MCKENZIE) Negative COVID-19 FID3 Com See Note 10/12/21 10/13/21 10/13/21 20:32 04:43 07:15 WBC 9.8 RBC 4.54 L Hgb 13.2 L Hct 43.4 MCV 95.6 MCH 29.1 MCHC 30.4 L RDW 16.0 Plt Count 116 L MPV 12.0 Immature Gran % (Auto) 0.5 H Neut % (Auto) 71.4 Lymph % (Auto) 7.4 L [place] % (Auto) 19.3 H Eos % (Auto) 0.9 Baso % (Auto) 0.5 Lymph # (Auto) 0.7 L [place] # (Auto) 1.9 H Eos # (Auto) 0.1 Baso # (Auto) 0.1 Abs Immat Gran (auto) 0.05 H Absolute Neuts (auto) 7.0 Absolute Nucleated RBC 0.000 Nucleated RBC % (auto) 0.0 Smear Tech's Comments VERIFIED PT INR APTT Sodium Potassium Chloride Carbon Dioxide Anion Gap BUN Creatinine Estim Creat Clear Calc Estimated GFR POC Glucose 107 89 Random Glucose Calcium Total Bilirubin AST ALT Alkaline Phosphatase Troponin I High Sens B-Natriuretic Peptide Total Protein Albumin COVID-19 (MCKENZIE) COVID-19 Clin Com 10/13/21 10/13/21 08:13 09:58 WBC RBC Hgb Hct MCV MCH MCHC RDW Plt Count MPV Immature Gran % (Auto) Neut % (Auto) Lymph % (Auto) [place] % (Auto) Eos % (Auto) Baso % (Auto) Lymph # (Auto) [place] # (Auto) Eos # (Auto) Baso # (Auto) Abs Immat Gran (auto) Absolute Neuts (auto) Absolute Nucleated RBC Nucleated RBC % (auto) Smear Tech's Comments PT INR APTT Sodium 141 Potassium 4.4 Chloride 104 Carbon Dioxide 26 Anion Gap 15 BUN 19 H Creatinine 1.16 Estim Creat Clear Calc 78.3 Estimated GFR > 60 POC Glucose 90 Random Glucose 98 Calcium 8.3 L Total Bilirubin AST ALT Alkaline Phosphatase Troponin I High Sens B-Natriuretic Peptide Total Protein Albumin COVID-19 (MCKENZIE) COVID-19 Clin Com Imaging Radiologist's impression: Impressions Head CT 10/12/21 15:15 IMPRESSION: 1. No acute intracranial process or discrete facial bone fracture. 2. No acute cervical spine fracture or traumatic subluxation. Cervical Spine CT 10/12/21 15:25 IMPRESSION: 1. No acute intracranial process or discrete facial bone fracture. 2. No acute cervical spine fracture or traumatic subluxation. Chest CT 10/12/21 15:25 IMPRESSION: 1. Small bilateral pleural effusions with mild superjacent atelectasis. This does not appear posttraumatic and could be secondary to mild congestion. Short-term follow-up with chest radiographs is recommended as indicated. 2. Interval increase in size of left isthmus nodule up to 2.0 cm. This is amenable to further evaluation with dedicated thyroid ultrasound. 3. Dilatation of the ascending thoracic aorta up to 4.2 cm without significant change. 4. Moderate bilateral gynecomastia without significant change. Fleischner guidelines were followed. Face CT 10/12/21 15:25 IMPRESSION: 1. No acute intracranial process or discrete facial bone fracture. 2. No acute cervical spine fracture or traumatic subluxation. Assessment and Plan (1) Acute CHF: Status: Acute Plan [age] year gentleman who is presenting for lower extremity edema and shortness of breath. He has open ulcers on the shins which are from de roofed blisters. He is clinically volume overloaded and in heart failure. Agree with IV diuretics currently. Monitor electrolytes closely. Will review the echocardiogram and will give further recommendations. Chronic atrial fibrillation. On Eliquis for anticoagulation. Thank you for allowing me to participate in the care of your patient. Please feel free to contact me if you have any questions. Procedures Date of Service Date of Service: 10/13/21
[2021-10-13 11:50] LABS: Glucose, Whole Blood 88 mg/dL (60-115)
--- NOTE | 2021-10-13 12:01 | HO.PM.IMPN ---
Subjective Subjective Date of Service: 10/13/21 Interval History: Seen in f/u for exacerbation of heart failure Interval history: he remains fluid overloaded, and increase O2 reqrirement Review of Systems lower extremity swelling, penile swelling, shortness of breath, Physical Exam Vital Signs: Vital Signs: Last Vital Signs Temp 95.5 F L 10/13/21 11:07 Pulse 45 L 10/13/21 11:07 Resp 20 10/13/21 11:07 BP 113/77 10/13/21 11:07 Pulse Ox 96 10/13/21 11:07 O2 Del Method 10/13/21 11:07 O2 Flow Rate 6 10/13/21 11:07 BMI result Body Mass Index 37.5 Const: Other: General: AO X 2, no acute distress Resp: rales at bases CVS: S1,S2,RRR, 2+leg edema bilater GI: +BS, NT, no distention Skin: jessica chronic stasis dermatitis Neuro: motor grossly intact Psych: appropriate affect Objective Data Active Medications Acetaminophen (Acetaminophen 325 Mg Tablet) 650 mg PO Q6H PRN PRN Reason: Pain, Mild (Pain Scale 1-3) Benzonatate (Benzonatate 100 Mg Capsule) 100 mg PO TID PRN PRN Reason: Cough Dextrose (Dextrose 50 % 25 Gm/50 Ml Syringe) 25 gm IVPUSH Q15M PRN; Protocol PRN Reason: per Hypoglycemia Standing Ord. Furosemide (Furosemide 40 Mg/4 Ml Vial) 40 mg IVPUSH DAILY [facility]; Protocol Last Admin: 10/13/21 09:23 Dose: 40 mg Documented By: STEFAN Glucose (Glucose Gel 15 Gm Gel..Gram.) 15 gm PO Q15M PRN; Protocol PRN Reason: per Hypoglycemia Standing Ord. Hydromorphone HCl (Hydromorphone Hcl 0.5 Mg/0.5 Ml Syringe) 0.5 mg IVPUSH Q4H PRN; Protocol PRN Reason: Pain, Severe (Pain Scale 7-10) Piperacillin Sod/Tazobactam (Sod 3.375 gm/ Sodium Chloride) 50 mls @ 100 mls/hr IV Q6H [facility] Last Admin: 10/13/21 11:49 Dose: 100 mls/hr Documented By: BRUNOORALB Vancomycin HCl 1,250 mg/ (Sodium Chloride) 250 mls @ 166.667 mls/hr IV Q24H [facility] Insulin Human Lispro (Insulin Lispro 100 Unit/Ml 3 Ml Vial) 0 unit SUBCUT QIDACHS [facility]; Protocol Last Admin: 10/13/21 11:48 Dose: Not Given Documented By: IRAJ Non-Admin Reason: No Insulin Coverage Labetalol HCl (Labetalol Hcl 20 Mg/4 Ml Syringe) 10 mg IVPUSH Q4H PRN PRN Reason: BP>140/90 Last Admin: 10/12/21 22:43 Dose: 10 mg Documented By: NICO Melatonin (Melatonin 3 Mg Tablet) 6 mg PO BEDTIME PRN PRN Reason: Insomnia Pharmacy Consult (Consult Rx Perform Med Rec) 1 each MISCELLANE ONCE PRN PRN Reason: Consult order Pharmacy Consult (Consult Rx Vancomycin Dosing) 1 each MISCELLANE DAILY PRN PRN Reason: Consult order Senna (Sennosides 8.6 Mg Tablet) 17.2 mg PO BEDTIME PRN PRN Reason: Constipation Sodium Chloride (0.9 % Sodium Chloride Flush 3 Ml Syringe) [facility] Last Admin: 10/13/21 09:24 Dose: 3 ml Documented By: STEFAN Labs CBC & Chem 7: 10/13/21 07:15 10/13/21 09:58 Labs: Laboratory Results - last 24 hr 10/12/21 10/12/21 10/12/21 15:19 15:19 15:19 MCV 92.9 MCH 28.7 MCHC 30.9 L RDW 15.8 Plt Count 149 L MPV 12.0 Immature Gran % (Auto) 0.4 Neut % (Auto) 81.0 H Lymph % (Auto) 8.1 L [place] % (Auto) 9.0 Eos % (Auto) 1.1 Baso % (Auto) 0.4 Lymph # (Auto) 0.7 L [place] # (Auto) 0.8 Eos # (Auto) 0.1 Baso # (Auto) 0.0 Abs Immat Gran (auto) 0.03 Absolute Neuts (auto) 6.8 Absolute Nucleated RBC 0.000 Nucleated RBC % (auto) 0.0 Smear Tech's Comments PT 14.2 H INR 1.2 H APTT 40.3 H Anion Gap Estim Creat Clear Calc Estimated GFR POC Glucose Random Glucose Calcium Total Bilirubin AST ALT Alkaline Phosphatase Troponin I High Sens 22.4 B-Natriuretic Peptide 1504 H Total Protein Albumin COVID-19 (MCKENZIE) COVID-19 [place]. com. cn Com 10/12/21 10/12/21 10/12/21 15:24 19:11 19:58 MCV MCH MCHC RDW Plt Count MPV Immature Gran % (Auto) Neut % (Auto) Lymph % (Auto) [place] % (Auto) Eos % (Auto) Baso % (Auto) Lymph # (Auto) [place] # (Auto) Eos # (Auto) Baso # (Auto) Abs Immat Gran (auto) Absolute Neuts (auto) Absolute Nucleated RBC Nucleated RBC % (auto) Smear Tech's Comments PT INR APTT Anion Gap 10 L Estim Creat Clear Calc 73.9 Estimated GFR 57 POC Glucose Random Glucose 117 H Calcium 8.3 L Total Bilirubin 1.0 AST 21 ALT 16 Alkaline Phosphatase 88 Troponin I High Sens 23.8 B-Natriuretic Peptide Total Protein 7.4 Albumin 3.3 L COVID-19 (MCKENZIE) Negative COVID-19 [place]. com. cn Com See Note 10/12/21 10/13/21 10/13/21 20:32 04:43 07:15 MCV 95.6 MCH 29.1 MCHC 30.4 L RDW 16.0 Plt Count 116 L MPV 12.0 Immature Gran % (Auto) 0.5 H Neut % (Auto) 71.4 Lymph % (Auto) 7.4 L [place] % (Auto) 19.3 H Eos % (Auto) 0.9 Baso % (Auto) 0.5 Lymph # (Auto) 0.7 L [place] # (Auto) 1.9 H Eos # (Auto) 0.1 Baso # (Auto) 0.1 Abs Immat Gran (auto) 0.05 H Absolute Neuts (auto) 7.0 Absolute Nucleated RBC 0.000 Nucleated RBC % (auto) 0.0 Smear Tech's Comments VERIFIED PT INR APTT Anion Gap Estim Creat Clear Calc Estimated GFR POC Glucose 107 89 Random Glucose Calcium Total Bilirubin AST ALT Alkaline Phosphatase Troponin I High Sens B-Natriuretic Peptide Total Protein Albumin COVID-19 ([facility]IE) COVID-19 Clin Com 10/13/21 10/13/21 10/13/21 08:13 09:58 11:46 MCV MCH MCHC RDW Plt Count MPV Immature Gran % (Auto) Neut % (Auto) Lymph % (Auto) [place] % (Auto) Eos % (Auto) Baso % (Auto) Lymph # (Auto) [place] # (Auto) Eos # (Auto) Baso # (Auto) Abs Immat Gran (auto) Absolute Neuts (auto) Absolute Nucleated RBC Nucleated RBC % (auto) Smear Tech's Comments PT INR APTT Anion Gap 15 Estim Creat Clear Calc 78.3 Estimated GFR > 60 POC Glucose 90 88 Random Glucose 98 Calcium 8.3 L Total Bilirubin AST ALT Alkaline Phosphatase Troponin I High Sens B-Natriuretic Peptide Total Protein Albumin COVID-19 ([facility]CKENZIE) COVID-19 Clin Com Assessment and Plan (1) Acute CHF: Status: Acute Plan 76-year-old male with a past medical history of hypertension, hyperlipidemia, diabetes diastolic CHF, AFib on Eliquis, lymphoma, hypothyroidism, CKD; chronic venous stasis; obesity presented to the hospital today with a chief complaint of shortness of breath. Noted to be in acute CHF. Admitted for further management. Acute on chronic CHF not enough data to further classify but suspect acute on chronic systolic --remains hyprevolemic - Continue IV Lasix and monitor I/O, weight daily, BMP and BNP -Echo -cardiology assessing Fall: Mechanical in nature. CT head, CT C-spine abd Face CT showed no acute findings. Exam nonfocal. PT/OT eventually Hypertension: Continue home metoprolol. CT scan showed aortic aneurysm measuring 4.2 cm. Labetalol p.r.n. for low blood pressure less than 140/90. ?Bilateral leg cellulitis: Finding on legs as in the pictures are more suggestive of chronic stasis dermatitis rather than acute cellulitis on jessica legs with normal WBC, and in that regard Vanco and Zosyn are not warranted, local wound care chronic medical conditions: History of hyperlipidemia:Continue home statin History of hypothyroidism: Continue home levothyroxine History of diabetes: tomorrow restart metformin. Insulin sliding scale for now. History of AFib: Rate controlled on metoprolol Continue home Eliquis. DVT prophylaxis: Patient on Eliquis Code status: Full code [place] need for acute heart failure needing IV Lasix Quality Stroke Does the patient have a stroke diagnosis?: No VTE Prior VTE?: No VTE Risk Level:: Medical - moderate - high VTE Device Contraindication: Treatment Not Indicated VTE Drug Contraindication: N/A - Med Ordered
--- NOTE | 2021-10-13 12:25 | PC.NURSE ---
contact made to Dr. John in regards of AMS, bradycardia, Difficulty to rouse. Plan at this time is to hold all PO medication in deferment of a swallow evaluation by speech. Plan is to Hold beta blockers due to low HR.
--- NOTE | 2021-10-13 13:17 | PC.NURSE ---
During abg, pt has improved mentation, Unwilling/unable to answer questions regarding mentation to obtain assessment. Contact made to Dr. Black regarding Rod placement due to need for strict IO monitoring.
[2021-10-13 13:19] LABS: ABG Base Excess 10.8 mmol/L; ABG HCO3 41 mmol/L (22-26); ABG pCO2 83 mmHg (32-45); ABG pH 7.29 (7.35-7.45); ABG pO2 105 mmHg (83-108)
--- NOTE | 2021-10-13 13:47 | PC.NURSE ---
Pt has increasing FIO2 needs, noted hypercapnia, tachynpnia and AMS- unable to answer orientation questions. Confused conversation. Plan at this time is to await ICU evaluation by MD. Pt had noted hypothermia marked upon arrival in FLO. Pt refusing elias but competency is questioned due to hypercapnia. MD aware. Nursing sup aware, ed charge is aware.
--- NOTE | 2021-10-13 14:00 | MHC.CM.PN ---
attempted to see pt in ed overflow he was unarousable called and spoke with pts weston oliva who is orin hcp he explins that pt lives alonewas receiving servceis thru [facility] who is dissolving by oct.jhe is rtequesting a new vna referral whiv was made to [facility] son will bring in hcp pt is also actrive with [facility] son would also want pt to resume [facility] wound clinic pt is vx x 3 hus son will transport home when dcd pt does not ewwant to go to rehab
--- NOTE | 2021-10-13 14:34 | PC.NURSE ---
bladder scan done on pt per RN. 707ml was the result of the bladder scan. RN aware.
--- NOTE | 2021-10-13 14:37 | PC.NURSE ---
pt seen by icu md (frank), pt aware of plan of care for transfer to icu. pt to have elias cath placed. bladder scanned for 707ml.
--- NOTE | 2021-10-13 14:44 | PC.NURSE ---
pt is being placed on bipap 12/11 at 50% by resp therapist
--- NOTE | 2021-10-13 14:48 | P.CONCC_ITS ---
History of Present Illness Data of Consult Service Date: 10/13/21 Requesting physician: Jameel Onofre Primary Care Provider: MD CARLITOS Jeter Reason for consult: Altered mental status with worsening hypoxia 76-year-old morbidly obese male with a past history of non-Hodgkin's lymphoma he has got bilateral leg ulcers and stasis dermatitis from chronic venous insufficiency and possible right heart failure was hypothermic with agitation increased lethargy and blood gas indicating acute on chronic hypercarbic and hypoxic respiratory failure and upon my review of his CT scan it looks like heart failure with interstitial and perihilar edema and pulmonary venous engorgement no distinct infiltrate and small bilateral pleural effusions He has chronic atrial fib with controlled rate on metoprolol and has chronic stage II renal failure but currently he is awake on an Oxymizer but was mildly hypothermic an EKG with a left intraventricular conduction defect and controlled AFib but looks like a the a right bundle configuration and diffuse nonspecific ST-T changes On exam he had clear-cut parvus and tardus upstrokes of his carotid artery prompting me to do bedside echo showing concentric left ventricular hypertrophy but greater than 60% ejection fraction without regional wall motion abnormality and he has normal right heart size as well heavily calcified mitral valve with moderate regurgitation but he has a clear-cut heavily calcified aortic valvular stenosis with peak velocity of 5 m/sec and an outflow tract velocity of 0.8 m/sec and a calculated aortic valve area of 0.5 sq cm and a peak gradient across the valve of over 120 mmHg consistent with critical aortic valvular stenosis Review of Systems Review of Systems: Yes all other systems are reviewed and are negative [facility] Past Medical History Medical History Afib Bilateral inguinal hernia CHF (congestive heart failure) Diabetes H/O renal calculi Inguinal hernia Lymphoma Family History Family History Mother Breast cancer Surgical History Surgical History History of ear surgery History of excision of mass History of excision of pilonidal cyst History of throat surgery Social History Social History Household Members: None Housing: House Do you presently have visiting nurse or other home services: Yes Alcohol intake: never Patient Tobacco Use Status: Former Tobacco user e-Cigarette/Vaping Use: Never Used Use of substances other than those prescribed or required for medical reasons: No Advance Directives: Yes Advance Directives Information Provided: Yes Advance Directives on File: No Advance Directives Date on File: 11/22/20 service: No Current occupational status: retired Cognitive needs: No Hearing needs: No Vision needs: No Meds Allergies Allergy/AdvReac Type Severity Reaction Status Date / Time No Known Allergies Allergy Verified 09/01/21 14:10 Active Medications: Current Medications Acetaminophen (Acetaminophen 325 Mg Tablet) 650 mg PO Q6H PRN PRN Reason: Pain, Mild (Pain Scale 1-3) Atorvastatin Calcium (Atorvastatin Calcium 10 Mg Tablet) 10 mg PO DAILY BENITO Benzonatate (Benzonatate 100 Mg Capsule) 100 mg PO TID PRN PRN Reason: Cough Dextrose (Dextrose 50 % 25 Gm/50 Ml Syringe) 25 gm IVPUSH Q15M PRN; Protocol PRN Reason: per Hypoglycemia Standing Ord. Furosemide (Furosemide 40 Mg/4 Ml Vial) 40 mg IVPUSH BID@0900,1800 [facility]; Protocol Glucose (Glucose Gel 15 Gm Gel..Gram.) 15 gm PO Q15M PRN; Protocol PRN Reason: per Hypoglycemia Standing Ord. Hydromorphone HCl (Hydromorphone Hcl 0.5 Mg/0.5 Ml Syringe) 0.5 mg IVPUSH Q4H PRN; Protocol PRN Reason: Pain, Severe (Pain Scale 7-10) Ampicillin Sodium/Sulbactam (Sodium 3 gm/ Sodium Chloride) 100 mls @ 200 mls/hr IV Q6H [facility] Insulin Human Lispro (Insulin Lispro 100 Unit/Ml 3 Ml Vial) 0 unit SUBCUT QIDACHS [facility]; Protocol Last Admin: 10/13/21 11:48 Dose: Not Given Levothyroxine Sodium (Levothyroxine Sodium 50 Mcg Tablet) 50 mcg PO DAILY@0600 [facility] Last Admin: 10/13/21 12:29 Dose: Not Given Melatonin (Melatonin 3 Mg Tablet) 6 mg PO BEDTIME PRN PRN Reason: Insomnia Pharmacy Consult (Consult Rx Perform Med Rec) 1 each MISCELLANE ONCE PRN PRN Reason: Consult order Pharmacy Consult (Consult Rx Vancomycin Dosing) 1 each MISCELLANE DAILY PRN PRN Reason: Consult order Senna (Sennosides 8.6 Mg Tablet) 17.2 mg PO BEDTIME PRN PRN Reason: Constipation Sodium Chloride (0.9 % Sodium Chloride Flush 3 Ml Syringe) 3 ml IVFLUSH QSHIFT [facility] Last Admin: 10/13/21 09:24 Dose: 3 ml Home Medications Medication Instructions Recorded Confirmed Last Taken Type apixaban 5 mg tablet (Eliquis) 1 tab PO BID 11/22/20 10/12/21 05/15/21 History Tumeric 1 tab PO DAILY 01/09/21 10/12/21 05/15/21 History atorvastatin 10 mg tablet 1 tab PO DAILY 01/09/21 10/12/21 05/15/21 History furosemide 40 mg tablet (Lasix) 40 mg PO DAILY 01/09/21 10/12/21 05/15/21 History levothyroxine 50 mcg tablet 1 tab PO DAILY 01/09/21 10/12/21 05/14/21 History (Euthyrox) metformin 1,000 mg tablet 1 tab PO DAILY 01/09/21 10/12/21 05/15/21 History omega-3 fatty acids 2,000 mg PO DAILY 01/09/21 10/12/21 05/15/21 History melatonin 3 mg tablet 3 mg PO BEDTIME PRN Insomnia 05/15/21 10/12/21 05/14/21 History metoprolol tartrate 50 mg tablet 50 mg PO BID 05/15/21 10/12/21 05/15/21 History Physical Exam Vital Signs: Vital Signs: Last Vital Signs Temp 96.6 F L 10/13/21 13:47 Pulse 67 10/13/21 13:47 Resp 25 H 10/13/21 13:47 BP 146/104 H 10/13/21 13:47 Pulse Ox 96 10/13/21 13:47 O2 Del Method 10/13/21 13:47 O2 Flow Rate 7 10/13/21 13:47 BMI result Body Mass Index 37.5 He is awake but lethargic and but he is oriented and nonfocal neurologically Parvus and tardus carotid upstrokes and critical aortic valvular stenosis is been defined he also has dilated inferior vena cava consistent with elevated right heart filling pressures clear-cut congestive heart failure with biventricular failure Abdomen obese but no organomegaly Lungs with prolonged expiratory time Bilateral lower extremity stasis dermatitis and 4+ edema along with open wounds and possible cellulitis Results Labs CBC & Chem 7: 10/13/21 07:15 10/13/21 09:58 Labs: Short CBC 10/12/21 10/13/21 Range/Units 15:19 07:15 WBC 8.4 9.8 (4.8-10.8) X10*3/uL Hgb 12.5 L 13.2 L (14.0-18.0) g/dl Hct 40.5 L 43.4 (42.0-52.0) % Plt Count 149 L 116 L (160-400) X10*3/uL BMP 10/12/21 10/13/21 15:24 09:58 Sodium 141 141 Potassium 4.3 4.4 Chloride 104 104 Carbon Dioxide 31 H 26 BUN 22 H 19 H Creatinine 1.23 1.16 Calcium 8.3 L 8.3 L Liver Function 10/12/21 Range/Units 15:24 Total Bilirubin 1.0 (0.0-1.0) mg/dL AST 21 (5-37) U/L ALT 16 (0-40) U/L Alkaline Phosphatase 88 (39-117) U/L Albumin 3.3 L (3.5-5.0) g/dL Assessment and Plan (1) Acute CHF: Status: Acute (2) History of non-Hodgkin's lymphoma: Status: Acute (3) Morbid obesity due to excess calories: Status: Acute (4) Atrial fibrillation: Status: Acute (5) Chronic kidney disease, stage 3: Status: Acute (6) Diabetes 1.5, managed as type 1: Status: Acute (7) Leg ulcer: Status: Acute (8) Cellulitis: Qualifiers: Laterality: left Site of cellulitis: extremity Site of cellulitis of extremity: lower extremity Qualified Code(s): L03.116 - Cellulitis of left lower limb Status: Acute (9) Acute on chronic respiratory failure with hypoxia and hypercapnia: Status: Acute (10) Bilateral inguinal hernia: Status: Acute (11) Obstructive uropathy: Status: Acute (12) Aortic stenosis, severe: Status: Acute (13) Hypothermia: Status: Acute Plan If he tolerates will try to work with BiPAP for tonight and withhold his beta- sandhya to give him back a little bit more heart rate for cardiac output in the face of aortic stenosis and blood cultures are pending and repeat blood gas on the BiPAP to see if his acute respiratory acidosis is improving and empiric use of IV Unasyn and vancomycin for his cellulitis and if he were to consent along with family we need to explain necessity for cardiac catheterization and possible addressing the aortic valve stenosis
--- NOTE | 2021-10-13 15:11 | PC.NURSE ---
bedside echocardiogram being done at this time.
--- NOTE | 2021-10-13 15:25 | MHC.SLORD ---
Speech Language Pathology Order Status: Bedside Swallow Evaluation order received, attempted to see PT in ED overflow this p.m. - pt in increased respiratory distress, being transferred to ICU. OUTSIDE INSTALLATION MACHINIST will continue to monitor re: Medical status, readiness for assessment.
[2021-10-13 16:33] LABS: Glucose, Whole Blood 92 mg/dL (60-115)
[2021-10-13 16:45] LABS: ABG HCO3 38 mmol/L (22-26); ABG pCO2 70 mmHg (32-45); ABG pH 7.34 (7.35-7.45); ABG pO2 120 mmHg (83-108)
--- NOTE | 2021-10-13 17:10 | PC.NURSE ---
Addendum entered by Claudia Nieves RN 10/13/21 18:43: Patient requesting urinal yelling I need to pee - Urinal provided and patient able to urinate 100cc hematuria. Large blood clot approx. size of golfball came out during urination. Patient unable to urinate and complaining or worsening pain. Bladder scan 774cc. Patient requesting urinal 10 minutes after bladder scan and able to urinate another 350cc hematuria. Dr Butts notified - q2hr bladder scan per MD if unable to urinate. Handoff given to Chloe Vargas RN. Original Note: Patient Arrived to unit at 1555 from ED via bed. Arouses to name, disoriented to place and situation. Patient arrived with bipap machine settings 18/8 at 30% FiO2, Coarse crackles throughout. Patient afib, HR high 40s-50s with occasional PVCs. Patient continues to fall asleep during conversation & care, unable to complete full risk assessment. ABGs obtained by RT, CO2 70. Unable to insert elias catheter due to patient's anatomy. Attempted F/C insertion with 16 and 12 Spanish catheter, small amount of bloody penile discharge due to attempted F/C insertion, MD aware. Male incontinent wrap applied. bilat. lower extremities discolored with fluid filled blisters, buttocks red and blanchable, barrier cream applied.
[2021-10-13] MEDS: Ampicillin Sodium/Sulbactam Na 3 GM in 0.9 % Sodium Chloride 100 ML IV (17:37)
[2021-10-13 17:40] LABS: Erythrocyte Sedimentation Rate 20 MM/HR (0-15)
[2021-10-13 20:16] LABS: ABG Refer to POC result
--- NOTE | 2021-10-13 20:22 | PM.CCN ---
Critical Care Event Note Summary Date of Service: 10/13/21 Code activated: No Narrative: This case had a high probability of a clinically significant, sudden, or life threatening deterioration of this patient's condition which required my full and direct attention, intervention and personal management. Critical Care Time (minutes): 60 Comment: Pt unable to pass urine without extreme pain, urine is bright red in color and contains many clots, one was golf ball sized. Penis is swollen, pt has phimosis, and meatus is indiscernable. We are unable to pass a elias or cath the patient in any way. Our hospital urologist is on vacation and there is no back up urologist so we have no choice but to transfer the patient out for likely a suprapubic catheter with CBI. I called [facility] and they are all full, not taking transfers at this time. I called [facility] and they were able to get this patient a bed in their ICU at [facility]. I spoke with the urologist, Dr. Mcclain initially and he was willing to take the pt, then I spoke with the hospitalist, Dr. Camarillo who accepted the patient into a room for of their ICU. Will send all imaging on a disk as well as do a VBG as patient is currently much less lethargic and conversational, vbg 7.36/72.6/32.8/50/42.1/13.6; will take off Bipap for transport (1:10hrs), but will need to be put back on upon arrival to [place]. Pt refused last dose of dilauded. I explained all this to the patient's son Adis Feliz [phone] as well as the patient himself, they both understand and agree with the plan for transfer. Critical Care Time Critical Care Time (minutes): 60
[2021-10-13 21:07] LABS: Glucose, Whole Blood 83 mg/dL (60-115)
[2021-10-13 21:15] LABS: VBG Base Excess 13.6 mmol/L; VBG HCO3 42 mmol/L (22-26); VBG pCO2 73 mmHg; VBG pH 7.37 (7.32-7.43); VBG pO2 33 mmHg
[2021-10-13 22:33] LABS: Venous Blood Gas Refer to POC result
--- NOTE | 2021-10-16 17:29 | P.EN_ITS ---
Event Note Date of Service: 10/16/21
--- NOTE | 2021-10-16 17:29 | PM.EVENT ---
Event Note Date of Service: 10/16/21
--- NOTE | 2021-10-27 06:36 | PM.DS ---
DS: Providers Provider Date of Service: 10/13/21 Date of admission: 10/12/21 19:24 Date of discharge: 10/13/21 Primary care physician: Amish Payan MD Admitting clinician: Flora Palacio Attending physician on admission: Flora Palacio Consults: 10/12/21 19:24 Consult to Cardiology Routine Consulting Provider: Santy Tang Reason for consultation: Acute CHF Attending physician on discharge: Flora Palacio Discharging clinician: Judy Oconnor DS: Transfer Hospital Acceptance Reason for Transfer: pt needed emergent urological care, our hospital had no urologist soa integration architect today. Name of Facility: [facility] in [place] Accepting Provider: Dr. Camarillo admitting doc, Dr Mcclain is the urologist DS: Diagnosis Discharge Diagnosis (1) Acute CHF: Status: Acute (2) Aortic stenosis, severe: Status: Acute (3) Obstructive uropathy: Status: Acute (4) Acute on chronic respiratory failure with hypoxia and hypercapnia: Status: Acute (5) Cardiomyopathy: Status: Acute (6) Atrial fibrillation: Status: Acute (7) Chronic kidney disease, stage 3: Status: Acute (8) Diabetes 1.5, managed as type 1: Status: Acute (9) Cellulitis: Status: Acute DS: Summary Hospital Course Hospital Course: Pt unable to pass urine without extreme pain, urine is bright red in color and contains many clots, one was golf ball sized. Penis is swollen, pt has phimosis, and meatus is indiscernable. We are unable to pass a elias or cath the patient in any way. Our hospital urologist is on vacation and there is no back up urologist so we have no choice but to transfer the patient out for likely a suprapubic catheter with CBI.? I called [facility], [facility] and they are all full, not taking transfers at this time.? I called [facility] and they were able to get this patient a bed in their ICU at [facility].? I spoke with the urologist, Dr. Mcclain initially and he was willing to take the pt, then I? spoke with the hospitalist, Dr. Camarillo? who accepted the patient into a room for of their ICU. Will send all imaging on a disk as well as do a VBG as patient is currently much less lethargic and conversational, vbg 7.36/72.6/32.8/50/42.1/13.6; will take off Bipap for transport (1:10hrs), but will need to be put back on upon arrival to [place]. Pt refused last dose of dilauded. I explained all this to the patient's son Adis Patrick [phone] as well as the patient himself, they both understand and agree with the plan for transfer. Status at Discharge Cognitive/behavioral status at discharge: slightly confused, baseline per son Overall status at discharge: patient is not back to baseline Time Spent with Patient Time attestation: Total time spent providing and/or coordinating discharge services: Discharge coordination time: Greater than 30 minutes Quality: Safe Use of Opioids Does Pt have an Active Cancer Diagnosis on the Problem List?: No Quality: Stroke Does the patient have a stroke diagnosis?: No Physical Exam Vital Signs: Vital Signs: Last Vital Signs Temp 97.9 F 10/13/21 22:00 Pulse 70 10/13/21 22:00 Resp 16 10/13/21 22:00 BP 154/87 H 10/13/21 22:00 Pulse Ox 97 10/13/21 22:00 O2 Del Method 10/13/21 22:00 O2 Flow Rate 4 10/13/21 21:00 FiO2 30 10/13/21 22:00 BMI result Body Mass Index 37.5 Const: General: cooperative, comfortable, no acute distress and confusion (forgetful) Nutritional Appearance: obese Orientation/consciousness: oriented to person, No oriented to place, oriented to time and confusion (forgetful) Limitations: no limitations HEENT: Head: Yes normal to inspection Eyes: General: appearance normal, both eyes and all related structures Neck: Neck: Yes normal visual inspection and Yes full ROM Resp: Effort & Inspection: normal respiratory effort and able to speak in complete sentences Auscultation: clear to auscultation bilaterally Cardio: Rate: tachycardic Rhythm: abnormal rhythm irregularly irregular GI: Inspection: Yes obesity Palpation (GI): Soft to palpation and nontender : Penis: phimosis Skin: General skin exam: no rashes or lesions noted Neuro: General: oriented to person, No oriented to place, oriented to time and confusion (forgetful) Extrem: Other: bilateral stasis dermatitis, 4+ pitting edema, open wounds, erythema, no warmth Psych: Appearance: disheveled Speech and movement: Normal speech and movement present Affect: Labile affect present Attitude: Belligerent attititude/behavior present Thought process: Illogical thought process present Thought content: suicidality and no homicidality Insight: Limited insight present (Psych) Judgement: Limited judgement present (Psych) DS: Data Data Completed and Pending Completed studies during hospitalization [Text1]: Procedures Assistance with Respiratory Ventilation, Less than 24 Consecutive Hours, Continuous Positive Airway Pressure (10/12/21) Discharge Plan Discharge Anticipated Discharge Date/Time: 10/13/21 22:30 Patient Disposition: [facility] Hospital Discharge Diagnosis: hypercarbic, hypoxic respiratory failure, Hematuria, blood clots requiring urology treatment Referrals: Amish Payan MD [Primary Care Provider] - 1 Week Discharge Medications: Continued Eliquis 5 mg tablet 1 tab PO BID melatonin 3 mg Tablet 3 mg PO BEDTIME PRN (Reason: Insomnia) metoprolol tartrate 50 mg tablet 50 mg PO BID atorvastatin 10 mg tablet 1 tab PO DAILY levothyroxine [Euthyrox] 50 mcg tablet 1 tab PO DAILY metformin 1,000 mg tablet 1 tab PO DAILY furosemide [Lasix] 40 mg tablet 40 mg PO DAILY omega-3 fatty acids Capsule 2,000 mg PO DAILY Tumeric 1 tab PO DAILY Discharge Orders: Discharge Order (Routine); Ordered 10/13/21 Ordered By: Judy Oconnor Diet: Advance to usual diet Activity on Discharge: bed rest Stand Alone Forms: Patient Portal Discharge page Care Plan Goals: Pt transferred to [facility] for urological care Health Concerns: Pt transferred to [facility] for urological care Plan of Treatment: Pt transferred to [facility] for urological care Assessment: Pt transferred to [facility] for urological care Discharge Date/Time: 10/13/21 23:00
== END 2021-10-13 23:00 | disposition short-term general hospital (02) | DRG 291 ==
LOC: HO.ED 19:31 → HO.EDOVER 20:49 → HO.ICU 10-13 15:10
PROVIDERS: Internal Medicine Cardiovascular Disease; Physician Assistant; Admitting Provider Hospitalist; Emergency Provider Emergency Medicine; PCP Internal Medicine; Visit Provider Internal Medicine
DX: I13.0 Hypertensive heart and chronic kidney disease with heart failure and stage 1 through stage 4 chronic kidney disease, or unspecified chronic kidney disease (principal); I50.23 Acute on chronic systolic (congestive) heart failure; J96.22 Acute and chronic respiratory failure with hypercapnia; J96.21 Acute and chronic respiratory failure with hypoxia; I87.313 Chronic venous hypertension (idiopathic) with ulcer of bilateral lower extremity; I35.0 Nonrheumatic aortic (valve) stenosis; E03.9 Hypothyroidism, unspecified; Z68.37 Body mass index [BMI] 37.0-37.9, adult; N18.30 Chronic kidney disease, stage 3 unspecified; R68.0 Hypothermia, not associated with low environmental temperature; N47.1 Phimosis; R31.0 Gross hematuria; E66.01 Morbid (severe) obesity due to excess calories; E13.22 Other specified diabetes mellitus with diabetic chronic kidney disease; E78.5 Hyperlipidemia, unspecified; Z85.72 Personal history of non-Hodgkin lymphomas; Z20.822 Contact with and (suspected) exposure to COVID-19; Z79.01 Long term (current) use of anticoagulants; Z79.84 Long term (current) use of oral hypoglycemic drugs; Z79.890 Hormone replacement therapy; Z79.899 Other long term (current) drug therapy
CPT/HCPCS: 36415; 36600; 70450; 70486; 71250; 72125; 80048; 80053; 82803; 82947; 83880; 84443; 84484; 85025; 85610; 85652; 85730; 87635; 93005; 93306; 94660; 96374; 99285; C1758; J0295; J1940; J2543; J3370; Q9957